=== PATIENT | female | born 1965 | race Caucasian/White ===

== ENCOUNTER 2018-01-20 15:24 | Emergency (ER) | payer SELFPAY ==
[2018-01-20] MEDS ORDERED: ALBUTEROL 2.5 MG/3 ML NEB SOL ONE (15:44)
[2018-01-20] MEDS ORDERED: IPRATROPIUM BROM 0.5MG/2.5ML ONE (15:44)
[2018-01-20] MEDS ORDERED: predniSONE 20 MG TAB ONE (15:45)
--- NOTE | 2018-01-20 16:42 | RAD REPORT ---
EXAM DESCRIPTION: RAD - Chest Pa And Lat (2 Views) - 01/20/2018 4:35 pm CLINICAL HISTORY: Cough, congestion. COMPARISON: None. FINDINGS: The lungs are clear. The heart is normal in size. No displaced fractures. IMPRESSION: No acute or concerning finding suspected.
--- NOTE | 2018-01-20 17:01 | EDPHYS ---
Physician Documentation [facility] Name: Shabnam Farnsworth Age: 52 yrs Sex: Female : 1965 Arrival Date: 01/20/2018 Time: 15:28 Bed 16 Private MD: None, None ED Physician Dave Gardiner HPI: 01/20 15:55 This 52 yrs old Female presents to ER via Ambulatory with complaints of Sinus kb Congestion, Chest Congestion. 15:55 The patient or guardian reports cough, that is intermittent, described as moderate, kb with no sputum. Onset: The symptoms/episode began/occurred 6 day(s) ago. Severity of symptoms: At their worst the symptoms were moderate, in the emergency department the symptoms are unchanged. Modifying factors: The symptoms are alleviated by nothing, the symptoms are aggravated by nothing. Associated signs and symptoms: Pertinent positives: rhinorrhea, Pertinent negatives: chest pain, diarrhea, ear ache, fever, nausea, sore throat, vomiting. The patient has experienced similar episodes in the past, several times. The patient has not recently seen a physician. Pt states she started with a "head cold" on Sunday and it moved into her chest. Now has cough, wheezing, chest congestion. Has history of asthma and is out of albuterol. Was working with the [employer] yesterday and that made symptoms worse. 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 - Social history:: Smoking status: Patient/guardian denies using tobacco. ROS: 15:53 Constitutional: Negative for fever, chills, and weight loss, Neck: Negative for injury, kb pain, and swelling, Cardiovascular: Negative for chest pain, palpitations, and edema, Abdomen/GI: Negative for abdominal pain, nausea, vomiting, diarrhea, and constipation, Back: Negative for injury and pain, : Negative for injury, bleeding, discharge, and swelling, MS/Extremity: Negative for injury and deformity, Skin: Negative for injury, rash, and discoloration, Neuro: Negative for headache, weakness, numbness, tingling, and seizure. 15:53 ENT: Positive for rhinorrhea, sinus congestion, sinus pain. 15:53 Respiratory: Positive for cough, Negative for dyspnea on exertion, hemoptysis, orthopnea, pleurisy, shortness of breath, sputum production, wheezing. Exam: 15:53 Constitutional: This is a well developed, well nourished patient who is awake, alert, kb and in no acute distress. Head/Face: Normocephalic, atraumatic. ENT: Nares patent. No nasal discharge, no septal abnormalities noted. Tympanic membranes are normal and external auditory canals are clear. Oropharynx with no redness, swelling, or masses, exudates, or evidence of obstruction, uvula midline. Mucous membranes moist. Neck: Trachea midline, no thyromegaly or masses palpated, and no cervical lymphadenopathy. Supple, full range of motion without nuchal rigidity, or vertebral point tenderness. No Meningismus. Chest/axilla: Normal chest wall appearance and motion. Nontender with no deformity. No lesions are appreciated. Cardiovascular: Regular rate and rhythm with a normal S1 and S2. No gallops, murmurs, or rubs. Normal PMI, no JVD. No pulse deficits. Abdomen/GI: Soft, non-tender, with normal bowel sounds. No distension or tympany. No guarding or rebound. No evidence of tenderness throughout. Skin: Warm, dry with normal turgor. Normal color with no rashes, no lesions, and no evidence of cellulitis. MS/ Extremity: Pulses equal, no cyanosis. Neurovascular intact. Full, normal range of motion. Neuro: Awake and alert, GCS 15, oriented to person, place, time, and situation. Cranial nerves II-XII grossly intact. Motor strength 5/5 in all extremities. Sensory grossly intact. Cerebellar exam normal. Normal gait. 15:53 Respiratory: the patient does not display signs of respiratory distress, Respirations: normal, Breath sounds: wheezing: expiratory that is moderate, is heard diffusely. Vital Signs: 15:34 BP 109 / 58; Pulse 111; Resp 22; Temp 97.9(TE); Pulse Ox 94% on R/A; Weight 70.31 kg; la1 Height 5 ft. 4 in. (162.56 cm); 16:21 BP 106 / 59; Pulse 100; Resp 18; Pulse Ox 100% on R/A; Pain 0/10; em 17:05 BP 117 / 63; Pulse 89; Resp 20; Pulse Ox 99% on R/A; Pain 0/10; em 15:34 Body Mass Index 26.61 (70.31 kg, 162.56 cm) la1 MDM: 15:36 Patient medically screened. kb 15:53 Data reviewed: vital signs, nurses notes. Data interpreted: Pulse oximetry: on room air kb is 94 %. Interpretation: acceptable. 15:58 Counseling: I had a detailed discussion with the patient and/or guardian regarding: the kb historical points, exam findings, and any diagnostic results supporting the discharge/admit diagnosis, radiology results, the need for outpatient follow up, a family practitioner, to return to the emergency department if symptoms worsen or persist or if there are any questions or concerns that arise at home. 17:01 Response to treatment: the patient's symptoms have markedly improved after treatment. kb 01/20 15:37 Order name: Chest Pa And Lat (2 Views) XRAY; Complete Time: 16:46 kb Administered Medications: 15:50 Drug: DuoNeb (3:1) (2.5 mg - 0.5 mg) 3 ml Route: Nebulizer; em 17:19 Follow up: Response: No adverse reaction; Wheezing diminished em 15:50 Drug: predniSONE 60 mg Route: PO; em 17:19 Follow up: Response: No adverse reaction em Disposition: 18 17:00 Discharged to Home. Impression: Unspecified asthma with (acute) exacerbation. - Condition is Stable. - Discharge Instructions: Asthma, Adult, [id number]. - Prescriptions for Prednisone 20 mg Oral Tablet - take 1 tablet by ORAL route once daily for 5 days; 5 tablet. Albuterol Sulfate 2.5 mg /3 mL (0.083 %) Inhalation Solution for Nebulization - inhale 1 unit by NEBULIZATION route every 8 hours As needed; 1 box. Albuterol Sulfate 90 mcg/actuation - inhale 1-2 puff by INHALATION route every 4-6 hours; 1 Inhaler. - Medication Reconciliation Form, Thank You Letter, Antibiotic Education, Prescription Opioid Use form. - Follow up: Emergency Department; When: As needed; Reason: Worsening of condition. Follow up: Private Physician; When: 2 - 3 days; Reason: Recheck today's complaints, Continuance of care, Re-evaluation by your physician. Addendum: 01/29/2018 05:54 Co-signature as Attending Physician, Dave Gardiner MD I agree with the assessment and w a plan of care. Signatures: Dispatcher [employer] Divine Cruz, RANULFO-C CONSULTING BUSINESS DEVELOPER-Ckb PhamAkash, SCIENCE TECHNICIAN SCIENCE TECHNICIAN em Zachary Delgado, RN RN la1 Dave Gardiner MD MD me Corrections: (The following items were deleted from the chart) 01/20 16:00 15:55 Pt states she started with a "head cold" on Sunday and it moved into her chest. kb Now has cough, wheezing, chest congestion. Has history of asthma and is out of albuterol. . kb 17:19 17:00 01/20/2018 17:00 Discharged to Home. Impression: Unspecified asthma with (acute) em exacerbation. Condition is Stable. Discharge Instructions: Asthma, Adult, [id number]. Prescriptions for Prednisone 20 mg Oral Tablet - take 1 tablet by ORAL route once daily for 5 days; 5 tablet, Albuterol Sulfate 2.5 mg /3 mL (0.083 %) Inhalation Solution for Nebulization - inhale 1 unit by NEBULIZATION route every 8 hours As needed; 1 box, Albuterol Sulfate 90 mcg/actuation - inhale 1-2 puff by INHALATION route every 4-6 hours; 1 Inhaler. and Forms are Medication Reconciliation Form, Thank You Letter, Antibiotic Education, Prescription Opioid Use. Follow up: Emergency Department; When: As needed; Reason: Worsening of condition. Follow up: Private Physician; When: 2 - 3 days; Reason: Recheck today's complaints, Continuance of care, Re-evaluation by your physician. kb
--- NOTE | 2018-01-20 17:01 | ER ---
Nurse's Notes [facility] Name: Shabnam Farnsworth Age: 52 yrs Sex: Female : 1965 Arrival Date: 01/20/2018 Time: 15:28 Bed 16 Private MD: None, None Diagnosis: Unspecified asthma with (acute) exacerbation Presentation: 01/20 15:33 Presenting complaint: Patient states: I have been having congestion, runny nose, cough la1 since Sunday and its moving in to my chest, pt audibly wheezing, respirations even and unlabored. Transition of care: patient was not received from another setting of care. Onset of symptoms was January 20, 2018. Initial Sepsis Screen: Does the patient meet any 2 criteria? No. Patient's initial sepsis screen is negative. Does the patient have a suspected source of infection? No. Patient's initial sepsis screen is negative. Care prior to arrival: None. 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 - Social history:: Smoking status: Patient/guardian denies using tobacco. Screenin:54 Abuse screen: Denies threats or abuse. Nutritional screening: No deficits noted. em Tuberculosis screening: No symptoms or risk factors identified. Fall Risk None identified. Assessment: 15:51 General: Appears in no apparent distress. comfortable, Behavior is calm, cooperative. em Pain: Denies pain. Neuro: Level of Consciousness is awake, alert, obeys commands, Oriented to person, place, time, situation. Cardiovascular: Capillary refill < 3 seconds Patient's skin is warm and dry. Respiratory: Reports cough that is productive, Airway is patent Respiratory effort is even, unlabored, Respiratory pattern is regular, symmetrical, Breath sounds with wheezes bilaterally. Onset: The symptoms/episode began/occurred Sunday , the patient has mild shortness of breath. GI: Abdomen is flat. : No signs and/or symptoms were reported regarding the genitourinary system. EENT: No signs and/or symptoms were reported regarding the EENT system. Derm: Skin is intact, Skin is pink, warm \T\ dry. Musculoskeletal: Range of motion: intact in all extremities. 16:06 Reassessment: Patient appears in no apparent distress at this time. I agree with the iw assessment by Akash Pham LVN. 16:32 Reassessment: Patient appears in no apparent distress at this time. Patient and/or em family updated on plan of care and expected duration. Pain level reassessed. Patient is alert, oriented x 3, equal unlabored respirations, skin warm/dry/pink. pt wheeled to X-ray dept by miguel Mabry. 17:05 Reassessment: Patient appears in no apparent distress at this time. Patient and/or em family updated on plan of care and expected duration. Pain level reassessed. Patient is alert, oriented x 3, equal unlabored respirations, skin warm/dry/pink. Patient states feeling better. Patient states symptoms have improved. Vital Signs: 15:34 BP 109 / 58; Pulse 111; Resp 22; Temp 97.9(TE); Pulse Ox 94% on R/A; Weight 70.31 kg; la1 Height 5 ft. 4 in. (162.56 cm); 16:21 BP 106 / 59; Pulse 100; Resp 18; Pulse Ox 100% on R/A; Pain 0/10; em 17:05 BP 117 / 63; Pulse 89; Resp 20; Pulse Ox 99% on R/A; Pain 0/10; em 15:34 Body Mass Index 26.61 (70.31 kg, 162.56 cm) la1 ED Course: 15:28 Patient arrived in ED. mr 15:28 None, None is Private Physician. mr 15:28 Divine Da Silva [facility]C [facility]. kb 15:28 Dave Gardiner MD is Attending Physician. kb 15:34 Triage completed. la1 15:34 Arm band placed on right wrist. la1 15:50 Akash Pham LVN is Primary Nurse. em 15:54 Patient has correct armband on for positive identification. Bed in low position. Call em light in reach. 15:54 No provider procedures requiring assistance completed. em 16:34 Chest Pa And Lat (2 Views) XRAY In Process Unspecified. EDMS 17:18 Patient did not have IV access during this emergency room visit. em Administered Medications: 15:50 Drug: DuoNeb (3:1) (2.5 mg - 0.5 mg) 3 ml Route: Nebulizer; em 17:19 Follow up: Response: No adverse reaction; Wheezing diminished em 15:50 Drug: predniSONE 60 mg Route: PO; em 17:19 Follow up: Response: No adverse reaction em Outcome: 17:00 Discharge ordered by . hallie 17:19 Discharged to home ambulatory. em 17:19 Condition: good 17:19 Discharge instructions given to patient, Instructed on discharge instructions, follow up and referral plans. medication usage, Demonstrated understanding of instructions, follow-up care, medications, Prescriptions given X 3. 17:19 Patient left the ED. em Signatures: Dispatcher [employer] EDDivine Altamirano, PEDIATRICIAN-C PEDIATRICIAN-Ilana Marrero Edgar, BUSPERSON BUSPERSON em Amita Arias, RN Zachary Mirza RN RN la1
== END 2018-01-20 17:19 | disposition home or self-care (01) ==
LOC: ER 15:24
DX: J45.901 Unspecified asthma with (acute) exacerbation (principal); Z88.1 Allergy status to other antibiotic agents
CPT/HCPCS: 71046; 94640; 99284; J7512

== ENCOUNTER 2018-02-16 12:11 | Inpatient (IN) | payer SELFPAY ==
[2018-02-16] MEDS ORDERED: ALBUTEROL 2.5 MG/3 ML NEB SOL ONE ×2 (13:06→16:26)
[2018-02-16] MEDS ORDERED: METHYLPREDNISOLONE 125 MG INJ ONE (13:06)
[2018-02-16] MEDS ORDERED: IPRATROPIUM BROM 0.5MG/2.5ML ONE (13:06)
[2018-02-16 13:10] LABS: Hematocrit 46.6 % (36.0-45.0); MCH 31.7 pg (27.0-35.0); MPV 8.7 fL (7.6-11.3)
[2018-02-16 13:12] LABS: Protime INR 1.02
[2018-02-16 13:17] LABS: Bicarbonate 28 mEq/L (21-31); Glucose Level 251 mg/dL (65-120); Potassium 4.2 mEq/L (3.6-5.0); Sodium Level 136 mEq/L (135-145)
[2018-02-16 13:23] LABS: ALT/SGPT 20 IU/L (10-60); AST/SGOT 16 IU/L (10-42); Albumin 3.9 g/dL (3.2-5.5); Alkaline Phosphatase 83 IU/L (42-121); BUN Blood Urea Nitrogen 15 mg/dL (6-20); Bilirubin Direct 0.1 mg/dL (0-0.2); Bilirubin Total 0.5 mg/dL (0.3-1.2); Creatine Phosphokinase 64 IU/L (22-269); Magnesium 1.6 mg/dL (1.8-2.5); Protein, Total 7.4 g/dL (6.0-8.3)
[2018-02-16 13:26] LABS: CKMB Creatine Kinase MB 1.9 ng/ml (0.3-4.0)
[2018-02-16 13:32] LABS: Blood Morphology Comment NOT SEEN (NOT SEEN); Platelet Estimate ADEQ
--- NOTE | 2018-02-16 13:33 | RAD REPORT ---
EXAM DESCRIPTION: RAD - Chest Single View - 02/16/2018 1:23 pm CLINICAL HISTORY: Cough, shortness of breath. COMPARISON: 01/20/2018 FINDINGS: Portable technique limits examination quality. The lungs are grossly clear. The heart is normal in size. No displaced fractures. IMPRESSION: No acute intrathoracic process suspected.
[2018-02-16] MEDS ORDERED: ASPIRIN 81 MG CHEWABLE TABLET ONE (13:47)
[2018-02-16] MEDS ORDERED: Magnesium Sulfate 2gm IVPB 2 G/50 ML BAG IV ONE (13:48)
--- NOTE | 2018-02-16 17:21 | ER ---
Nurse's Notes [facility] Name: Shabnam Farnsworth Age: 52 yrs Sex: Female : 1965 Arrival Date: 02/16/2018 Time: 12:12 Bed 23 Private MD: Diagnosis: Unspecified asthma with (acute) exacerbation;Hypoxemia Presentation: 02/16 12:36 Presenting complaint: Patient states: SOB and productive cough with yellow sputum x 3 hb days. SOB is worse when supine. Denies fever. Hx asthma, DM. Transition of care: patient was not received from another setting of care. Onset of symptoms was February 14, 2018. 12:36 Method Of Arrival: Ambulatory hb 12:40 Risk Assessment: Do you want to hurt yourself or someone else? Patient reports no hb desire to harm self or others. 12:40 Acuity: CAMERON 2 hb 13:21 Initial Sepsis Screen: Does the patient meet any 2 criteria? No. Patient's initial kr2 sepsis screen is negative. Does the patient have a suspected source of infection? No. Patient's initial sepsis screen is negative. Care prior to arrival: None. 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 - Social history:: Smoking status: Patient/guardian denies using tobacco. - Ebola Screening: : No symptoms or risks identified at this time. Screenin:21 Abuse screen: Denies threats or abuse. Denies injuries from another. Nutritional kr2 screening: No deficits noted. Tuberculosis screening: No symptoms or risk factors identified. Fall Risk None identified. Assessment: 13:18 General: Appears in no apparent distress. comfortable, well groomed, well developed, kr2 well nourished, Behavior is calm, cooperative, appropriate for age. Pain: Denies pain. Neuro: Level of Consciousness is awake, alert, obeys commands, Oriented to person, place, time, situation, Appropriate for age. Cardiovascular: Capillary refill < 3 seconds in bilateral fingers Patient's skin is warm and dry. Rhythm is regular. Respiratory: Reports feeling congested and "like I can't take a full deep breath" Airway is patent Respiratory effort is even, unlabored, Respiratory pattern is regular, symmetrical, Breath sounds are clear bilaterally. Respiratory: Reports cough that is productive. GI: Abdomen is flat, non-distended. : No signs and/or symptoms were reported regarding the genitourinary system. EENT: Nares are clear bilaterally Oral mucosa is moist. Derm: Skin is intact, is healthy with good turgor, Skin is pink, warm \\T\\ dry. Musculoskeletal: Circulation, motion, and sensation intact. 14:32 Reassessment: Patient appears in no apparent distress at this time. Patient and/or kr2 family updated on plan of care and expected duration. Pain level reassessed. Patient is alert, oriented x 3, equal unlabored respirations, skin warm/dry/pink. Patient off of oxygen briefly, O2 sat 89% on room air with patient at rest. Placed back on O2 \\T\\ 2 LPM via NC. Saturation 95%. 16:19 Reassessment: Patient appears in no apparent distress at this time. Patient and/or kr2 family updated on plan of care and expected duration. Pain level reassessed. Patient is alert, oriented x 3, equal unlabored respirations, skin warm/dry/pink. Provider had patient remove oxygen and ambulate around nurse's station. Saturation dropped to 89% on room air. Provider notified, placed patient back on oxygen. 17:30 Reassessment: Patient appears in no apparent distress at this time. Patient and/or kr2 family updated on plan of care and expected duration. Pain level reassessed. Patient is alert, oriented x 3, equal unlabored respirations, skin warm/dry/pink. Patient denies pain at this time. 18:23 Reassessment: Patient appears in no apparent distress at this time. Patient and/or kr2 family updated on plan of care and expected duration. Pain level reassessed. Patient is alert, oriented x 3, equal unlabored respirations, skin warm/dry/pink. Patient denies pain at this time. 19:55 Reassessment: Patient appears in no apparent distress at this time. Patient and/or kr2 family updated on plan of care and expected duration. Pain level reassessed. Patient is alert, oriented x 3, equal unlabored respirations, skin warm/dry/pink. Patient denies pain at this time. Vital Signs: 12:37 BP 134 / 66; Pulse 103; Resp 20; Temp 98; Pulse Ox 88% on R/A; Pain 0/10; hb 14:34 BP 115 / 71; Pulse 77; Resp 18; Pulse Ox 95% on 2 lpm NC; kr2 15:30 BP 104 / 62; Pulse 80; Resp 20; Pulse Ox 95% on 2 lpm NC; kr2 16:19 Pulse Ox 89% on R/A; kr2 16:28 BP 101 / 58; Pulse 90; Resp 18; Pulse Ox 94% on 2 lpm NC; kr2 18:22 BP 110 / 65; Pulse 72; Resp 17; Pulse Ox 97% on 2 lpm NC; kr2 19:30 BP 116 / 63; Pulse 70; Resp 96; Pulse Ox 96% on 2 lpm NC; kr2 ED Course: 12:12 Patient arrived in ED. rg4 12:40 Triage completed. hb 12:40 Arm band placed on left wrist. hb 12:43 Chris Murcia PA is PHCP. cp 12:43 Chris Cortez MD is Attending Physician. cp 12:50 Initial lab(s) drawn, by me, sent to lab. Inserted saline lock: 20 gauge in right iw antecubital area, using aseptic technique. Blood collected. 12:55 Yen Saunders, RN is Primary Nurse. kr2 13:22 Patient has correct armband on for positive identification. Bed in low position. Call kr2 light in reach. Adult w/ patient. learning center coordinator on. Pulse ox on. NIBP on. 13:23 XRAY Chest (1 view) In Process Unspecified. EDMS 16:22 No provider procedures requiring assistance completed. kr2 17:19 Silvano Cordero DO is Hospitalizing Provider. cp 19:55 Patient admitted, IV remains in place. kr2 Administered Medications: 13:09 Drug: SOLU-Medrol 125 mg Route: IVP; Site: right antecubital; kr2 14:45 Follow up: Response: No adverse reaction kr2 13:10 Drug: Albuterol - atroVENT (3:1) (2.5 mg - 0.5 mg) 3 ml Route: Nebulizer; kr2 14:45 Follow up: Response: No adverse reaction kr2 13:51 Drug: Magnesium Sulfate 2 grams Route: IVPB; Infused Over: 2 hrs; Site: right kr2 antecubital; 15:00 Follow up: Response: No adverse reaction; IV Status: Completed infusion kr2 13:51 Drug: Aspirin Chewable Tablet 324 mg Route: PO; kr2 14:45 Follow up: Response: No adverse reaction kr2 16:45 Drug: Albuterol 2.5 mg Route: Inhalation; kr2 17:00 Follow up: Response: No adverse reaction kr2 Outcome: 17:21 Decision to Hospitalize by Provider. cp 19:54 Admitted to Med/surg accompanied by nurse, family with patient, via wheelchair, room kr2 216, with oxygen, with chart, Report called to Cassy 19:54 Condition: good 19:54 Instructed on the need for admit, Demonstrated understanding of instructions. 19:59 Patient left the ED. kr2 Signatures: Dispatcher [employer] EDAmita Mar RN RN iw Page, Corey, CHRIS PA cp Mercedes Castro RN RN hb Garcia, Rubi rg4 Yen Saunders RN RN kr2 Corrections: (The following items were deleted from the chart) 19:58 13:18 Respiratory: Reports cough that is non-productive, kr2 kr2
--- NOTE | 2018-02-16 17:21 | EDPHYS ---
Physician Documentation [facility] Name: Shabnam Farnsworth Age: 52 yrs Sex: Female : 1965 Arrival Date: 02/16/2018 Time: 12:12 Bed 23 Private MD: ED Physician Chris Cortez HPI: 02/16 12:50 This 52 yrs old Female presents to ER via Ambulatory with complaints of cp Asthma Exacerbation. 12:50 The patient has shortness of breath at rest. cp 12:50 Onset: The symptoms/episode began/occurred 3 day(s) ago. Duration: The symptoms are cp continuous, and are steadily getting worse. The patient's shortness of breath is aggravated by light activity. Associated signs and symptoms: Pertinent positives: productive cough, Pertinent negatives: chest pain, fever, hemoptysis, vomiting. Severity of symptoms: in the emergency department the symptoms are unchanged. The patient has experienced similar episodes in the past, today's symptoms are similar, to when the patient was apparently diagnosed with asthma exacerbation. Patient reports running out of Advair inhaler about 1 month ago. 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 - Social history:: Smoking status: Patient/guardian denies using tobacco. - Ebola Screening: : No symptoms or risks identified at this time. ROS: 13:00 Constitutional: Negative for body aches, chills, fever, poor PO intake. cp 13:00 Eyes: Negative for injury, pain, redness, and discharge. cp 13:00 ENT: Negative for drainage from ear(s), ear pain, sore throat, difficulty swallowing, difficulty handling secretions. 13:00 Cardiovascular: Negative for chest pain, edema, orthopnea, palpitations. 13:00 Respiratory: Positive for cough, shortness of breath, at rest. wheezing, Negative for hemoptysis. 13:00 Abdomen/GI: Negative for abdominal pain, nausea, vomiting, and diarrhea. 13:00 Back: Negative for radiated pain. 13:00 : Negative for urinary symptoms. 13:00 Skin: Negative for cellulitis, diaphoresis, rash. 13:00 Neuro: Negative for altered mental status, dizziness, headache, syncope, near syncope, weakness. 13:00 All other systems are negative. Exam: 13:07 ECG was reviewed by the Attending Physician. cp 13:10 Constitutional: The patient appears in no acute distress, alert, awake, cp non-diaphoretic, non-toxic, well developed, well nourished. 13:10 Head/Face: Normocephalic, atraumatic. Eyes: Pupils equal round and reactive to light, cp extra-ocular motions intact. Lids and lashes normal. Conjunctiva and sclera are non-icteric and not injected. Cornea within normal limits. Periorbital areas with no swelling, redness, or edema. ENT: Nares patent. No nasal discharge, no septal abnormalities noted. Tympanic membranes are normal and external auditory canals are clear. Oropharynx with no redness, swelling, or masses, exudates, or evidence of obstruction, uvula midline. Mucous membranes moist. Neck: Trachea midline, no thyromegaly or masses palpated, and no cervical lymphadenopathy. Supple, full range of motion without nuchal rigidity, or vertebral point tenderness. No Meningismus. Chest/axilla: Normal chest wall appearance and motion. Nontender with no deformity. No lesions are appreciated. 13:10 Cardiovascular: Rate: tachycardic, Rhythm: regular, Heart sounds: murmur, not appreciated, Edema: is not appreciated, JVD: is not appreciated. 13:10 Respiratory: the patient does not display signs of respiratory distress, Respirations: labored breathing, that is mild, intercostal retractions, are absent, shallow respirations, are not present, splinting, is not noted, Breath sounds: decreased breath sounds, that are moderate, throughout, rhonchi, are not appreciated, stridor, is not appreciated, wheezing: that is mild, is heard diffusely. 13:10 Abdomen/GI: Inspection: abdomen appears normal, Bowel sounds: active, all quadrants, Palpation: abdomen is soft and non-tender, in all quadrants, rebound tenderness, is not appreciated, voluntary guarding, is not appreciated, involuntary guarding, is not appreciated. 13:10 Back: pain, is absent, ROM is normal. 13:10 Skin: cellulitis, is not appreciated, no rash present. 13:10 Neuro: Orientation: to person, place \T\ time. Mentation: lucid, able to follow commands, Cerebellar function: is grossly normal, Motor: moves all fours, strength is normal, Sensation: is normal. Vital Signs: 12:37 BP 134 / 66; Pulse 103; Resp 20; Temp 98; Pulse Ox 88% on R/A; Pain 0/10; hb 14:34 BP 115 / 71; Pulse 77; Resp 18; Pulse Ox 95% on 2 lpm NC; kr2 15:30 BP 104 / 62; Pulse 80; Resp 20; Pulse Ox 95% on 2 lpm NC; kr2 16:19 Pulse Ox 89% on R/A; kr2 16:28 BP 101 / 58; Pulse 90; Resp 18; Pulse Ox 94% on 2 lpm NC; kr2 18:22 BP 110 / 65; Pulse 72; Resp 17; Pulse Ox 97% on 2 lpm NC; kr2 19:30 BP 116 / 63; Pulse 70; Resp 96; Pulse Ox 96% on 2 lpm NC; kr2 MDM: 12:54 Patient medically screened. cp 13:00 Differential diagnosis: asthma, Bronchitis CHF exacerbation, Chronic Obstructive cp Pulmonary Disease Pneumothorax Sepsis Unstable Angina. 17:15 Data reviewed: vital signs, nurses notes, lab test result(s), EKG, radiologic studies, cp plain films. 17:15 Antibiotic administration: Not indicated, the patient does not have an appreciated cp infiltrate, the patient's primary pathology is reactive airway disease. Test interpretation: by ED physician or midlevel provider: ECG, plain radiologic studies. 17:17 Physician consultation: Silvano Cordero DO was contacted at 17:18, regarding admission, cp to the telemetry unit. patient's condition, and will see patient in ED, immediately. 02/16 12:49 Order name: Basic Metabolic Panel cp 02/16 12:49 Order name: BNP; Complete Time: 13:42 cp 02/16 12:49 Order name: CBC with Diff; Complete Time: 13:42 cp 02/16 13:42 Interpretation: Normal except: RBC 4.90; HGB 15.6; HCT 46.6. cp 02/16 12:49 Order name: Ckmb cp 02/16 12:49 Order name: CPK; Complete Time: 13:42 cp 02/16 12:49 Order name: LFT's; Complete Time: 13:42 cp 02/16 12:49 Order name: Magnesium; Complete Time: 13:42 cp 02/16 15:56 Interpretation: Abnormal: MG 1.6. cp 02/16 12:49 Order name: PT-INR; Complete Time: 13:42 cp 02/16 12:49 Order name: Ptt, Activated; Complete Time: 13:42 cp 02/16 12:49 Order name: Troponin (emerg Dept Use Only); Complete Time: 13:42 cp 02/16 12:49 Order name: Basic Metabolic Panel; Complete Time: 13:42 EDMS 02/16 15:56 Interpretation: Normal except: GLUC 251. cp 02/16 12:49 Order name: CKMB Creatine Kinase MB; Complete Time: 13:42 EDMS 02/16 13:21 Order name: Manual Differential; Complete Time: 13:42 EDMS 02/16 15:57 Interpretation: Normal except: BANDS [F] 2; EOS 12. cp 02/16 14:37 Order name: Urine Dipstick--Ancillary (enter results) bd 02/16 14:37 Order name: Urine --Ancillary (enter results) bd 02/16 17:33 Order name: Hemoglobin A1C EDMS 02/16 17:33 Order name: Basic Metabolic Panel EDMS 02/16 17:33 Order name: Basic Metabolic Panel EDMS 02/16 17:33 Order name: Basic Metabolic Panel EDMS 02/16 17:33 Order name: Basic Metabolic Panel EDMS 02/16 17:33 Order name: CBC with Automated Diff EDMS 02/16 17:33 Order name: CBC with Automated Diff EDMS 02/16 17:33 Order name: CBC with Automated Diff EDMS 02/16 17:33 Order name: CBC with Automated Diff EDMS 02/16 17:33 Order name: Magnesium EDMS 02/16 17:33 Order name: Magnesium EDMS 02/16 17:33 Order name: Magnesium EDMS 02/16 17:33 Order name: Magnesium EDMS 02/16 17:33 Order name: Influenza Screen (A EDMS 02/16 17:33 Order name: Group A Streptococcus Rapid Sc EDMS 02/16 12:49 Order name: Urine Test (obtain specimen); Complete Time: 14:47 02/16 12:49 Order name: XRAY Chest (1 view); Complete Time: 13:42 02/16 17:17 Interpretation: Report review. 02/16 12:49 Order name: EKG; Complete Time: 12:49 02/16 12:49 Order name: Cardiac monitoring; Complete Time: 13:12 02/16 12:49 Order name: EKG - Nurse/Tech; Complete Time: 13:12 02/16 12:49 Order name: IV Saline Lock; Complete Time: 13:12 02/16 12:49 Order name: Labs collected and sent; Complete Time: 13:12 02/16 12:49 Order name: O2 Per Protocol; Complete Time: 13:12 02/16 12:49 Order name: O2 Sat Monitoring; Complete Time: 13:12 02/16 12:49 Order name: Urine Dipstick-Ancillary (obtain specimen); Complete Time: 14:46 02/16 17:33 Order name: Consistent Carb (ADA) [facility] EDMS 02/16 17:34 Order name: Respiratory Therapy Consult EDMS EC:07 Rate is 70 beats/min. Rhythm is regular. OH interval is normal. QRS interval is normal. cp QT interval is normal. No ST changes noted. Interpreted by me. Reviewed by me. Administered Medications: 13:09 Drug: SOLU-Medrol 125 mg Route: IVP; Site: right antecubital; kr2 14:45 Follow up: Response: No adverse reaction kr2 13:10 Drug: Albuterol - atroVENT (3:1) (2.5 mg - 0.5 mg) 3 ml Route: Nebulizer; kr2 14:45 Follow up: Response: No adverse reaction kr2 13:51 Drug: Magnesium Sulfate 2 grams Route: IVPB; Infused Over: 2 hrs; Site: right kr2 antecubital; 15:00 Follow up: Response: No adverse reaction; IV Status: Completed infusion kr2 13:51 Drug: Aspirin Chewable Tablet 324 mg Route: PO; kr2 14:45 Follow up: Response: No adverse reaction kr2 16:45 Drug: Albuterol 2.5 mg Route: Inhalation; kr2 17:00 Follow up: Response: No adverse reaction kr2 Disposition: 06/09/18 17:21 Hospitalization ordered by Silvano Cordero for Observation. Preliminary diagnosis are Unspecified asthma with (acute) exacerbation, Hypoxemia. - Bed requested for Telemetry/MedSurg (observation). - Status is Observation. kr2 - Condition is Stable. - Problem is new. - Symptoms have improved. UTI on Admission? No Addendum: 02/18/2018 09:04 Co-signature as Attending Physician, Chris Cortez MD I agree with the assessment and c devi plan of care. Signatures: Dispatcher [employer] Zenaida Zendejas RN RN Chris Cunningham MD MD cha Page, Corey PA PA cp Mercedes Castro RN YINA Yen Saunders RN RN kr2 Corrections: (The following items were deleted from the chart) 02/16 18:49 17:21 Hospitalization Ordered by Silvano Cordero DO for Observation. Preliminary dw diagnosis is Unspecified asthma with (acute) exacerbation; Hypoxemia. Bed requested for Telemetry/MedSurg (observation). Status is Observation. Condition is Stable. Problem is new. Symptoms have improved. UTI on Admission? No. cp 19:59 18:49 02/16/2018 17:21 Hospitalization Ordered by Silvano Cordero DO for Observation. kr2 Preliminary diagnosis is Unspecified asthma with (acute) exacerbation; Hypoxemia. Bed requested for Telemetry/MedSurg (observation). Status is Observation. Condition is Stable. Problem is new. Symptoms have improved. UTI on Admission? No. dw
[2018-02-16] MEDS ORDERED: GLUCAGON 1 MG/VIAL IM PRN (17:26)
[2018-02-16] MEDS ORDERED: ONDANSETRON 4 MG/2 ML VIAL IV PRN (17:26)
[2018-02-16] MEDS ORDERED: ACETAMINOPHEN 500 MG TAB PO PRN (17:26)
[2018-02-16] MEDS ORDERED: D50W 25 GM/50 ML SYRINGE IV PRN (17:26)
--- NOTE | 2018-02-16 17:34 | P.HP ---
Certification for Inpatient Patient admitted to: Observation With expected LOS: <2 Midnights Patient will require the following post-hospital care: None Practitioner: I am a practitioner with admitting privileges, knowledge of patient current condition, hospital course, and medical plan of care. Services: Services provided to patient in accordance with Admission requirements found in Title 42 Section 412.3 of the Code of Federal Regulations Patient History Date of Service: 02/16/18 Primary Care Provider: None Reason for admission: Shortness of breath History of Present Illness: 52-year-old female presented emergency room with increasing shortness of breath and cough. Patient has history of asthma, type 1 diabetes and is a former tobacco user. Patient reports that she ran out of medication-Advair about a month ago. She has been using her albuterol inhaler. Over the last several days she has been having increasing shortness of breath, cough. Cough is productive. She denies any significant chest pain, nausea or vomiting. She reports some sick contacts with upper respiratory infection. Patient with increased wheezing. She came to the ER In the ER patient was evaluated. Oxygen saturations around 88%. Patient with increased wheezing. Chest x-ray shows no pneumonia. Sodium 136, potassium within normal range. Magnesium 1.6, glucose 254. White count 8.8. Hemoglobin 15.4. Patient was given treatments in the ER. Symptoms not significantly improved. Therefore patient was admitted for observation. When I evaluated the patient in the ER, she appeared comfortable. No significant respiratory distress noted. The patient is new to the area. Allergies sulfamethoxazole [From Bactrim] Allergy (Unverified 01/20/18 17:23) Unknown trimethoprim [From Bactrim] Allergy (Unverified 01/20/18 17:23) Unknown Home medications list reviewed: Yes - Past Medical/Surgical History Diabetic: Yes -: Diabetes mellitus type 1 -: Asthma -: Former tobacco use -: History small-bowel obstruction -: Laparotomy -: C-sections x2 Psychosocial/ Personal History: The patient is single. She has 2 children. She does not work. - Family History Family History: Reviewed- Non-Contributory - Social History Smoking Status: Former smoker Alcohol use: Yes CD- Drugs: No Caffeine use: Yes Place of Residence: Home Review of Systems General: As per HPI Eyes: Unremarkable ENT: Nose Congestion, As per HPI Respiratory: Cough, Shortness of Breath, Wheezing, As per HPI Cardiovascular: Unremarkable Gastrointestinal: Unremarkable Genitourinary: Unremarkable Musculoskeletal: Unremarkable Integumentary: Unremarkable Neurological: Unremarkable Lymphatics: Unremarkable Physical Examination - Physical Exam General: Alert, In no apparent distress, Oriented x3, Cooperative HEENT: Atraumatic, Normocephalic, PERRLA, Other (Some nasal congestion noted.) Neck: Supple, No Thyromegaly Respiratory: Expiratory wheezes (Bilateral) Cardiovascular: Normal pulses, Regular rate/rhythm Gastrointestinal: Normal bowel sounds, Soft and benign, Non-distended, No tenderness, No masses, No rebound, No guarding Musculoskeletal: No erythema, No tenderness, No warmth Integumentary: No tenderness/swelling, No erythema, No warmth, No cyanosis Neurological: Normal speech, Normal strength at 5/5 x4 extr, Normal tone, Normal affect Lymphatics: No axilla or inguinal lymphadenopathy - Studies Laboratory Data (last 24 hrs) 02/16/18 12:50: PT 12.0, INR 1.02, APTT 33.8 02/16/18 12:50: WBC 8.8, Hgb 15.6 H, Hct 46.6 H, Plt Count 280 02/16/18 12:50: B-Natriuretic Peptide 13 02/16/18 12:50: Sodium 136, Potassium 4.2, BUN 15, Creatinine 0.59, Glucose 251 H, Magnesium 1.6 L, Total Bilirubin 0.5, AST 16, ALT 20, Alkaline Phosphatase 83 Assessment and Plan - Problems (Diagnosis) (1) Asthma Current Visit: Yes Status: Acute Plan: Patient ran out of [facility] about a month ago. She is new to the area. Patient with acute exacerbation. Will provide IV steroid. Will continue with asthma medication. Will provide medication for cough. Anticipate discharge tomorrow once improved. Patient will need refill on her medication. Will check for influenza and strep. Qualifiers: Asthma severity: moderate Asthma persistence: persistent Asthma complication type: with acute exacerbation Qualified Code(s): J45.41 - Moderate persistent asthma with (acute) exacerbation (2) Diabetes mellitus Current Visit: Yes Status: Chronic Plan: Patient with type 1 diabetes. Will continue with insulin 70/30 25 units in the morning and 20 at night. Will provide sliding scale. Will check A1c. Qualifiers: Diabetes mellitus type: type 1 Diabetes mellitus complication status: with other specified complication Qualified Code(s): E10.69 - Type 1 diabetes mellitus with other specified complication (3) Hypomagnesemia Current Visit: Yes Status: Acute Plan: Will provide supplementation. Will monitor and adjust appropriately. Replacement protocol in place. (4) GERD (gastroesophageal reflux disease) Current Visit: Yes Status: Suspected Plan: Will provide PPI. Qualifiers: Esophagitis presence: esophagitis presence not specified Qualified Code(s) : K21.9 - Gastro-esophageal reflux disease without esophagitis (5) Seasonal allergies Current Visit: Yes Status: Chronic Plan: Will provide nasal spray. Discharge Plan: Home Plan to discharge in: 24 Hours - Advance Directives Does patient have a Living Will: No Does patient have a Durable POA for Healthcare: No - Code Status/Comfort Care Code Status Assessed: Yes Time Spent Managing Pts Care (In Minutes): 55
[2018-02-16 19:05] LABS: Urine Blood NEGATIVE (NEG); Urine Glucose 2+ (NEG); Urine Protein NEGATIVE (NEG); Urine Specific Gravity 1.025 (1.005-1.030)
[2018-02-16] MEDS: NA CHLORIDE 0.9% 1,000 ML IV SCH (20:03)
[2018-02-16] MEDS: ARFORMOTEROL TARTRATE 15 MCG/2 ML VIAL.NEB NEB SCH (20:48)
[2018-02-16] MEDS: FLUTICASONE 50MCG NASAL SPRAY NAS SCH (21:00)
[2018-02-16] MEDS: INSULIN -REGULAR HUMAN 50 UNIT/0.5 ML ML SQ SCH (22:02)
[2018-02-16] MEDS: BENZONATATE 100 MG CAP PO PRN (22:02)
[2018-02-16] MEDS: ENOXAPARIN 40 MG/0.4 ML SQ SCH (22:02)
[2018-02-17] MEDS: METHYLPREDNISOLONE 40 MG INJ IV SCH ×3 (00:12→17:24)
[2018-02-17 04:26] LABS: Absolute Lymphocytes (CBC) 0.7 K/uL (0.7-4.9); Absolute Monocytes 0.3 K/uL (0.1-1.3); Absolute Neutrophil 12.3 K/uL (1.8-8.0); Hematocrit 42.9 % (36.0-45.0); Lymphocytes % 5.6 % (15.3-44.8); MCH 31.8 pg (27.0-35.0); MCV 93.9 fL (80-100); MPV 8.8 fL (7.6-11.3); Monocytes % 1.9 % (3.3-12.3); RBC Red Blood Cell Count 4.57 M/uL (3.86-4.86)
[2018-02-17 04:40] LABS: BUN Blood Urea Nitrogen 17 mg/dL (6-20); Bicarbonate 27 mEq/L (21-31); Glucose Level 285 mg/dL (65-120); Magnesium 2.1 mg/dL (1.8-2.5); Potassium 4.5 mEq/L (3.6-5.0); Sodium Level 135 mEq/L (135-145)
[2018-02-17 05:20] LABS: Blood Morphology Comment NOT SEEN (NOT SEEN); Platelet Estimate ADEQ
[2018-02-17] MEDS: NA CHLORIDE 0.9% 1,000 ML IV SCH (05:41)
[2018-02-17] MEDS: PANTOPRAZOLE 40MG TABLET PO SCH (05:42)
[2018-02-17] MEDS: IPRATROPIUM BROM 0.5MG/2.5ML NEB PRN ×3 (07:55→20:02)
[2018-02-17] MEDS: ARFORMOTEROL TARTRATE 15 MCG/2 ML VIAL.NEB NEB SCH ×2 (07:55→20:01)
[2018-02-17] MEDS: ALBUTEROL 2.5 MG/3 ML NEB SOL NEB PRN ×3 (07:55→20:02)
--- NOTE | 2018-02-17 08:25 | P.PN ---
Subjective Date of Service: 02/17/18 Primary Care Provider: None Chief Complaint: Shortness of breath Subjective: Improving (Patient improving. Still with some mild shortness of breath. O2 saturations around 88%) Physical Examination - Vital Signs Temperature: 97.5 F Blood Pressure: 138/62 Pulse: 75 Respirations: 20 Pulse Ox (%): 94 - Physical Exam General: Alert, In no apparent distress, Oriented x3, Cooperative HEENT: Atraumatic, Mucous membr. moist/pink Neck: Supple Respiratory: Expiratory wheezes (Bilateral) Cardiovascular: Normal pulses, Regular rate/rhythm Gastrointestinal: Normal bowel sounds, Soft and benign, Non-distended, No tenderness, No masses, No rebound, No guarding Musculoskeletal: No erythema, No tenderness, No warmth Integumentary: No tenderness/swelling, No erythema, No warmth, No cyanosis Neurological: Normal speech, Normal strength at 5/5 x4 extr, Normal tone, Normal affect Lymphatics: No axilla or inguinal lymphadenopathy - Studies Laboratory Data (last 24 hrs) 02/16/18 12:50: PT 12.0, INR 1.02, APTT 33.8 02/16/18 12:50: WBC 8.8, Hgb 15.6 H, Hct 46.6 H, Plt Count 280 02/16/18 12:50: B-Natriuretic Peptide 13 02/16/18 12:50: Sodium 136, Potassium 4.2, BUN 15, Creatinine 0.59, Glucose 251 H, Magnesium 1.6 L, Total Bilirubin 0.5, AST 16, ALT 20, Alkaline Phosphatase 83 Medications List Reviewed: Yes Assessment & Plan - Problems (Diagnosis) (1) Asthma Current Visit: Yes Status: Acute Plan: Patient ran out of medication-Advair about a month ago. She is new to the area. Patient doing better at this time. Will continue with asthma treatment. Will reassess this afternoon. If better improved and room-air saturations stable then will discharge home. Will need to refill her Advair, ProAir. Patient will be sent home with prednisone for 10 days. Patient will need follow up with pulmonology as an outpatient. She will need to establish care locally with a physician. Qualifiers: Asthma severity: moderate Asthma persistence: persistent Asthma complication type: with acute exacerbation Qualified Code(s): J45.41 - Moderate persistent asthma with (acute) exacerbation (2) Diabetes mellitus Current Visit: Yes Status: Chronic Plan: Patient with type 1 diabetes. Will continue with insulin 70/30 25 units in the morning and 20 at night. Will provide sliding scale. Will check A1c. Qualifiers: Diabetes mellitus type: type 1 Diabetes mellitus complication status: with other specified complication Qualified Code(s): E10.69 - Type 1 diabetes mellitus with other specified complication (3) Hypomagnesemia Current Visit: Yes Status: Acute Plan: Will provide supplementation. Will monitor and adjust appropriately. Replacement protocol in place. (4) GERD (gastroesophageal reflux disease) Current Visit: Yes Status: Suspected Plan: Will provide PPI. Qualifiers: Esophagitis presence: esophagitis presence not specified Qualified Code(s) : K21.9 - Gastro-esophageal reflux disease without esophagitis (5) Seasonal allergies Current Visit: Yes Status: Chronic Plan: Will provide nasal spray. (6) Hypertension Current Visit: Yes Status: Chronic Plan: Will continue with her medication. Qualifiers: Hypertension type: essential hypertension Qualified Code(s): I10 - Essential (primary) hypertension Discharge Plan: Home Plan to discharge in: 24 Hours Time Spent Managing Pts Care (In Minutes): 55
[2018-02-17] MEDS: BENZONATATE 100 MG CAP PO PRN ×2 (08:33→17:24)
[2018-02-17] MEDS: INSULIN 70/30 100 UNITS/ML SQ SCH (08:33)
[2018-02-17] MEDS: INSULIN -REGULAR HUMAN 50 UNIT/0.5 ML ML SQ SCH ×4 (08:34→21:57)
[2018-02-17 08:38] LABS: A1c Component 1.44 mg/dL; Hemoglobin A1c 11.1 % (4-6.0)
[2018-02-17] MEDS: GUAIFENESIN 600 MG SA TAB PO SCH ×2 (08:42→21:57)
--- NOTE | 2018-02-17 09:11 | EKG ---
Test Date: 2018-02-16 Test Time: 13:00:04 Event Representative: LOGAN MEASUREMENT RESULTS: Intervals: Rate: 70 MT: 130 QRSD: 78 QT: 368 QTc: 397 [place]: P: 78 MT: 130 QRS: 83 T: 78 INTERPRETIVE STATEMENTS: Normal sinus rhythm Normal ECG No previous ECG available for comparison Electronically Signed On 02-17-18 09:08:38 CDT by Frank Zhang
[2018-02-17] MEDS: FLUTICASONE 50MCG NASAL SPRAY NAS SCH ×2 (09:15→21:56)
--- NOTE | 2018-02-17 09:51 | RAD REPORT ---
EXAM DESCRIPTION: Kiel Pa And Lat (2 Views)02/17/2018 6:53 am CLINICAL HISTORY: Cough COMPARISON: February 16, 2018 FINDINGS: A mild right lower lobe opacity has developed. The left lung appears clear of acute infilt rate. The heart is normal size IMPRESSION: Mild right lower lobe opacity could represent pneumonia or atelectasis
[2018-02-17] MEDS: Levofloxacin500mg IV 500 MG/100 ML BAG IV SCH (11:48)
[2018-02-17] MEDS ORDERED: INSULIN 70/30 100 UNITS/ML SQ SCH (16:30)
[2018-02-17] MEDS: ENOXAPARIN 40 MG/0.4 ML SQ SCH (21:57)
[2018-02-17] MEDS: LISINOPRIL 10 MG TAB PO SCH (21:58)
[2018-02-18] MEDS: METHYLPREDNISOLONE 40 MG INJ IV SCH ×3 (00:37→16:49)
[2018-02-18] MEDS: PANTOPRAZOLE 40MG TABLET PO SCH (06:18)
[2018-02-18 06:23] LABS: Absolute Monocytes 0.2 K/uL (0.1-1.3); Absolute Neutrophil 11.6 K/uL (1.8-8.0); Basophils % 0.1 % (0-1.3); Hematocrit 41.5 % (36.0-45.0); MCH 31.7 pg (27.0-35.0); MCV 95.3 fL (80-100); MPV 9.2 fL (7.6-11.3); Monocytes % 1.7 % (3.3-12.3); RBC Red Blood Cell Count 4.35 M/uL (3.86-4.86)
[2018-02-18 06:35] LABS: BUN Blood Urea Nitrogen 17 mg/dL (6-20); Bicarbonate 28 mEq/L (21-31); Glucose Level 330 mg/dL (65-120); Magnesium 1.8 mg/dL (1.8-2.5); Potassium 4.8 mEq/L (3.6-5.0); Sodium Level 138 mEq/L (135-145)
[2018-02-18] MEDS ORDERED: MAGNESIUM SULFATE 1 gm IVPB 1 GM/100 ML BAG IV ONE (07:00)
[2018-02-18] MEDS ORDERED: NA CHLORIDE 0.9% 0 ML ONE (07:22)
[2018-02-18] MEDS: ALBUTEROL 2.5 MG/3 ML NEB SOL NEB PRN ×3 (07:29→19:35)
[2018-02-18] MEDS: ARFORMOTEROL TARTRATE 15 MCG/2 ML VIAL.NEB NEB SCH ×2 (07:29→19:35)
[2018-02-18] MEDS: IPRATROPIUM BROM 0.5MG/2.5ML NEB PRN ×3 (07:29→19:35)
[2018-02-18] MEDS: INSULIN -REGULAR HUMAN 50 UNIT/0.5 ML ML SQ SCH ×4 (08:46→21:09)
[2018-02-18] MEDS: FLUTICASONE 50MCG NASAL SPRAY NAS SCH ×2 (08:46→21:11)
[2018-02-18] MEDS: INSULIN 70/30 100 UNITS/ML SQ SCH (08:47)
[2018-02-18] MEDS: GUAIFENESIN 600 MG SA TAB PO SCH ×2 (08:47→21:11)
[2018-02-18] MEDS: Levofloxacin500mg IV 500 MG/100 ML BAG IV SCH (11:27)
--- NOTE | 2018-02-18 14:02 | PN ---
Date of Progress Note: 02/18/2018 Subjective: The patient is seen and examined. Chart reviewed and case discussed with RN. The patie nt still having some difficulty breathing. Has not ambulated on 2 L of oxygen so far. Review of Systems: Negative except as above. Medications: Reviewed. Physical Examination: Vital Signs: Temperature 97.7, heart rate 62, blood pressure 112/54, respirations 20, O2 94% on 2 L via nasal cannula. The patient did desaturate to 88% earlier. General: Awake, alert, oriented x3, in some mild respiratory distress. CV: S1, S2. No murmurs. Regular rate and rhythm. Peripheral pulses present. Respiratory: Diminished breath sounds. Wheezing heard throughout. No use of accessory muscles. Gastrointestinal: Abdomen is soft, nontender, nondistended. Positive bowel sounds. Extremities: No clubbing, cyanosis, or edema. Neurologic: Nonfocal. Laboratory Data: Sodium 138, potassium 4.8, chloride 102, CO2 28, BUN 17, creatinine 0.65, glucose 3 30, calcium 9.3, magnesium 1.8. WBC 12.9, H and H 13.8 and 41.5, platelets 243, neutrophils 90%. Assessment And Plan: A 52-year-old female with: 1.Acute asthma exacerbation. The patient has been out of [facility] for the past month. The patient st ill requiring oxygen and desaturating to 88% on 2 L. We will obtain Pulmonology consultation. January e secondary to superimposed bacterial infection. 2.Pneumonia, right lower lobe. Continue with Levaquin. Follow up on blood cultures. 3.Acute respiratory distress, currently on 2 L. We will check peak flow. We will ambulate and rech esther oxygen level. 4.Diabetes mellitus type 1. We will adjust insulin dose. Hemoglobin A1c elevated at 11.1%. The berny beckford is counseled. The patient will need a PCP to adjust her insulin once out of the hospital. 5.Hypomagnesemia, replace and monitor. 6.Gastroesophageal reflux disease without esophagitis. Continue PPI. 7.Seasonal allergies. 8.Essential hypertension. Continue home medications. 9.Gastrointestinal and deep venous thrombosis prophylaxis with Lovenox and PPI. SA/MODL Voice ID: [id number] Report ID: [id number]
[2018-02-18] MEDS: ENOXAPARIN 40 MG/0.4 ML SQ SCH (21:10)
[2018-02-18] MEDS: LISINOPRIL 10 MG TAB PO SCH (21:11)
[2018-02-19] MEDS: BENZONATATE 100 MG CAP PO PRN ×2 (00:16→16:55)
[2018-02-19] MEDS: METHYLPREDNISOLONE 40 MG INJ IV SCH (00:16)
[2018-02-19] MEDS: IPRATROPIUM BROM 0.5MG/2.5ML NEB PRN (01:32)
[2018-02-19] MEDS: ALBUTEROL 2.5 MG/3 ML NEB SOL NEB PRN (01:32)
[2018-02-19 05:01] LABS: Absolute Lymphocytes (CBC) 0.9 K/uL (0.7-4.9); Absolute Monocytes 0.3 K/uL (0.1-1.3); Absolute Neutrophil 10.4 K/uL (1.8-8.0); Basophils % 0.2 % (0-1.3); Eosinophils % 0.1 % (0-4.4); Hematocrit 40.4 % (36.0-45.0); Lymphocytes % 7.4 % (15.3-44.8); MPV 9.2 fL (7.6-11.3); Monocytes % 2.7 % (3.3-12.3); RBC Red Blood Cell Count 4.29 M/uL (3.86-4.86)
[2018-02-19 05:19] LABS: BUN Blood Urea Nitrogen 19 mg/dL (6-20); Bicarbonate 27 mEq/L (21-31); Glucose Level 339 mg/dL (65-120); Magnesium 1.8 mg/dL (1.8-2.5); Potassium 4.8 mEq/L (3.6-5.0); Sodium Level 135 mEq/L (135-145)
[2018-02-19] MEDS ORDERED: MAGNESIUM SULFATE 1 gm IVPB 1 GM/100 ML BAG IV ONE (05:27)
[2018-02-19] MEDS: PANTOPRAZOLE 40MG TABLET PO SCH (06:07)
[2018-02-19] MEDS: ARFORMOTEROL TARTRATE 15 MCG/2 ML VIAL.NEB NEB SCH (07:21)
[2018-02-19] MEDS: INSULIN -REGULAR HUMAN 50 UNIT/0.5 ML ML SQ SCH ×4 (08:28→21:58)
[2018-02-19] MEDS: FLUTICASONE 50MCG NASAL SPRAY NAS SCH ×2 (08:29→21:59)
[2018-02-19] MEDS: INSULIN 70/30 100 UNITS/ML SQ SCH (08:29)
[2018-02-19] MEDS: GUAIFENESIN 600 MG SA TAB PO SCH ×2 (08:30→21:58)
--- NOTE | 2018-02-19 08:31 | P.CNS ---
Date of Consult: 02/19/18 Reason for Consult: Asthma exacerbation Primary Care Provider: None Chief Complaint: Shortness of breath History of Present Illness: Patient is 52 years of age with a history of asthma has been hospitalized before diagnosed 3 years ago active mild intermittent smoker developed problems on worsening cough shortness of breath she was in the emergency room about a month ago was discharged home on some steroids and nebulizers patient does not have any insurance she is to use Advair moved from [place] about 3 months ago attacks usually precipitated by a postnasal drainage she was admitted with a diagnosis of asthma exacerbation is doing somewhat better still has the cough slept well last night saturation satisfactory Allergies sulfamethoxazole [From Bactrim] Allergy (Mild, Verified 02/16/18 19:53) Itching trimethoprim [From Bactrim] Allergy (Mild, Verified 02/16/18 19:53) Itching Home Medications: Insulin 70/30 NPH/Reg Human [Novolin 70/30*] 20 unit SQ BEDTIME 02/16/18 Insulin 70/30 NPH/Reg Human [Novolin 70/30*] 25 units SQ DAILY 02/16/18 Lisinopril 10 mg PO BEDTIME 02/16/18 Albuterol Inhaler [Ventolin Inhaler*] 2 puff IH TID PRN #1 hfa.aer.ad 02/17/18 Albuterol Neb [Proventil 0.083% Neb Soln] 2.5 mg NEB TID PRN #90 amp 02/17/18 Fluticasone [Flonase 50MCG Nasal Sophia*] 1 sprays [place] BID #1 btl 02/17/18 Fluticasone/Salmeterol [Advair 250-50 Diskus] 1 each IH BID #1 blst.w.dev Levofloxacin [Levaquin] 500 mg PO DAILY #7 tablet 02/17/18 Pantoprazole [Protonix Tab*] 40 mg PO DAILYAC #30 tab 02/17/18 Prednisone [Deltasone] 20 mg PO SEECOM #15 tablet 02/17/18 - Past Medical/Surgical History Diabetic: Yes -: Diabetes mellitus type 1 -: Asthma -: Former tobacco use -: History small-bowel obstruction -: Laparotomy -: C-sections x2 Psychosocial/ Personal History: The patient is single. She has 2 children. She does not work. - Family History Mother Medical History: Hypertension, Other (see notes) Notes: Hypothyroidism - Social History Alcohol use: Yes CD- Drugs: No Caffeine use: Yes Place of Residence: Home Review of Systems 10-point ROS is otherwise unremarkable Respiratory: Cough, Shortness of Breath Physical Examination Temp Pulse Resp BP Pulse Ox 97.7 F 64 18 118/57 L 97 02/19/18 04:00 02/19/18 04:00 02/19/18 04:00 02/19/18 04:00 02/19/18 04:00 General: Alert, Oriented x3 HEENT: Atraumatic Neck: Supple Respiratory: Clear to auscultation bilaterally Cardiovascular: No edema, Regular rate/rhythm - Problems (1) Asthma exacerbation Current Visit: Yes Status: Acute Plan: Patient is 52 years of age admitted with worsening dyspnea presumed asthma exacerbation he still has is deep cough be discharged home Светлана, I have advised her to download a good Rx coupon on her I phone intake it to [facility] with a prescription has a corbett of this medication above is significantly less than also take home the ventilator inhaler discharge on prednisone 10 b.i.d. Zithromax for 5 days Consider stopping lisinopril blood pressure is currently low he is to follow up with me in 2 weeks
[2018-02-19] MEDS: DULERA 200/5 (MOMETASONE/FORMOTEROL) INHALER IH SCH ×2 (09:00→21:00)
[2018-02-19] MEDS: AZITHROMYCIN 250 MG TAB PO SCH (09:12)
[2018-02-19] MEDS: predniSONE 10 MG TAB PO SCH ×2 (09:12→21:58)
--- NOTE | 2018-02-19 14:28 | RAD REPORT ---
EXAM DESCRIPTION: CT - Thorax W/ Con CLINICAL HISTORY: Hypoxia COMPARISON: Recent chest radiographs. FINDINGS: Subsegmental atelectasis is present in both lung bases, greater on the right. No focal inf iltrate typical of pneumonia seen. No pleural thickening or pleural effusion. No pneumothorax. No axillary, mediastinal or hilar adenopathy. No concerning bony finding. No gross upper abdominal finding. All CT scans are performed using dose optimization technique as appropriate and may include automated exposure control or mA/KV adjustment according to patient size. IMPRESSION: Atelectasis is present in both lung bases, greater on the right.
--- NOTE | 2018-02-19 16:51 | PN ---
Date of Progress Note: 02/19/2018 Subjective: The patient seen and examined, chart reviewed, and case discussed with RN and Dr. eDs decker. The patient is still very hypoxic without oxygen. Complains of some cough and inability to brin g up sputum. Review of Systems: As above. Medications: List reviewed. Objective: Vital signs: Temperature 96.5, heart rate 64, blood pressure 119/60, respirations 16, an d O2 91% on 3 L via nasal cannula. General: Awake, alert, oriented x3, in some mild respiratory distress. Ill-appearing female. CV: S1, S2. Regular rate and rhythm. Peripheral pulses present. Respiratory: Diminished breath sounds. Diffuse wheezing. Gastrointestinal: Abdomen is soft, nontender, nondistended. Positive bowel sounds. Extremities: No clubbing, cyanosis, or edema. Neurologic: Nonfocal. Laboratory Data: Sodium 135, potassium 4.8, chloride 99, CO2 27, BUN 19, creatinine 0.64, glucose 33 9, calcium 9.1, and magnesium 1.8. WBC 11.6, H and H 14.4, 40.4, platelets 210, and neutrophils 89%. Assessment: A 52-year-old female with; 1.Acute asthma exacerbation. We will continue with breathing treatments and p.o. steroids. 2.Right lower lobe pneumonia. Continue Zithromax. Cultures negative to date. 3.Hypoxia, likely secondary to above. We will obtain CT chest. D-dimer is negative, doubt pulmonar y embolism. 4.Acute respiratory distress, currently still requiring 3 L of oxygen. 5.Diabetes mellitus type 1, hemoglobin A1c 11.1%. 6.Hyperglycemia, with long-term use of insulin. We will adjust dose. 7.Hypomagnesemia, replace and monitor. 8.Gastroesophageal reflux disease without esophagitis. Continue PPI. 9.Seasonal allergies. 10.Essential hypertension. We will hold lisinopril, which may be reason for her cough. 11.Gastrointestinal and deep venous thrombosis prophylaxis with PPI and Lovenox. SA/MODL Voice ID: [id number] Report ID: [id number]
[2018-02-19] MEDS: ENOXAPARIN 40 MG/0.4 ML SQ SCH (21:58)
[2018-02-20 05:47] LABS: Magnesium 1.8 mg/dL (1.8-2.5)
[2018-02-20 05:50] LABS: Absolute Lymphocytes (CBC) 2.3 K/uL (0.7-4.9); Absolute Monocytes 0.7 K/uL (0.1-1.3); Absolute Neutrophil 5.3 K/uL (1.8-8.0); Basophils % 0.2 % (0-1.3); Eosinophils % 1.9 % (0-4.4); Hematocrit 44.6 % (36.0-45.0); MCH 31.5 pg (27.0-35.0); MPV 9.3 fL (7.6-11.3); Monocytes % 8.3 % (3.3-12.3)
[2018-02-20] MEDS: PANTOPRAZOLE 40MG TABLET PO SCH (06:03)
[2018-02-20] MEDS ORDERED: MAGNESIUM SULFATE 1 gm IVPB 1 GM/100 ML BAG IV ONE (06:36)
[2018-02-20] MEDS: ALBUTEROL 2.5 MG/3 ML NEB SOL NEB PRN (07:54)
[2018-02-20] MEDS: IPRATROPIUM BROM 0.5MG/2.5ML NEB PRN (07:54)
[2018-02-20] MEDS: INSULIN 70/30 100 UNITS/ML SQ SCH (08:49)
[2018-02-20] MEDS: INSULIN -REGULAR HUMAN 50 UNIT/0.5 ML ML SQ SCH ×2 (08:49→11:20)
[2018-02-20] MEDS: predniSONE 10 MG TAB PO SCH (08:50)
[2018-02-20] MEDS: DULERA 200/5 (MOMETASONE/FORMOTEROL) INHALER IH SCH (08:50)
[2018-02-20] MEDS: FLUTICASONE 50MCG NASAL SPRAY NAS SCH (08:50)
[2018-02-20] MEDS: GUAIFENESIN 600 MG SA TAB PO SCH (08:51)
[2018-02-20] MEDS: AZITHROMYCIN 250 MG TAB PO SCH (08:51)
--- NOTE | 2018-02-21 10:34 | DS ---
Date of Discharge: 02/20/2018 Consultants: Dr. Lance, Pulmonology. Admitting Diagnoses: 1. Acute asthma exacerbation. 2. Diabetes mellitus type 1 with hyperglycemia. 3. Hypomagnesemia. 4. Gastroesophageal reflux disease. 5. Seasonal allergies. Discharge Diagnoses: 1. Acute asthma exacerbation, improved. 2. Hypoxia secondary to above. 3. Right lower lobe pneumonia. 4. Acute respiratory distress, resolved. 5. Diabetes mellitus type 1, hemoglobin A1c 11.1%. 6. Hyperglycemia. 7. Hypomagnesemia, replaced. 8. Gastroesophageal reflux disease without esophagitis. PPI. 9. Seasonal allergies. 10. Essential hypertension. Hospital Course: The patient is a 52-year-old female, smoker, who comes in the hospital with shortness of breath. The patient was found to be hypoxic. She was placed on supplemental oxygen. She was started on breathing treatments for her asthma exacerbation and steroids were added as well. Her initial chest x- ray was clear; however, subsequently, she did develop some cough and sputum production and possible right lower lobe opacity was found on repeat imaging study. The patient continued to be hypoxic, especially after minimal exertion, desaturating into the high 86% to 84%. The patient was seen by Dr. Lance with Pulmonology. Her medications were adjusted. A CT chest was also done, which showed atelectasis, greater on the right. The patient was given incentive spirometry and used it consistently. The patient's condition improved. Her breathing also improved. She was able to be weaned off oxygen. She was saturating 90% on room air. The patient was instructed to avoid strenuous activity. Her influenza screen was negative. Throat culture was done , which showed normal upper respiratory jag. Group A strep rapid screen was checked, which was also negative. D-dimer was negative. She was low probability for pulmonary embolism. The patient was then discharged home in a stable condition. Activity: No strenuous activity. Discharge Instructions: Follow up with primary care physician and establish care shortly after hospitalization. Follow up with Dr. Lance, Pulmonology in 1-2 weeks. The patient will be on prednisone taper along with maintenance inhaler. The patient was unable to afford Advair, therefore was given AirCynveco with Advizzerx coupon to be downloaded by the patient. The patient will continue nebulizer treatments. The patient can use Mucinex [id number] for congestion and will have Tessalon Perles for cough. Continue Flonase for seasonal allergies. Regarding her diabetes, the patient will continue with her insulin regimen of 70/30 25 units in the morning and 20 units at night. She is to follow up with PCP to adjust her insulin dose as her hemoglobin A1c is elevated. She understands risks associated with uncontrolled diabetes and understands that she requires yearly eye exams and podiatry exams. The patient will continue her lisinopril. This was stopped initially as a reason for her cough; however, did not make a difference. Therefore, the patient will continue lisinopril for renal protective reasons. She will continue Protonix for her GERD and course of antibiotics for pneumonia. Total time spent discharging the patient was 41 minutes. Physical Examination: General: Awake, alert, oriented, no acute distress. CV: S1, S2. No murmurs. Respiratory: Moving air well bilaterally. Abdomen: Soft, nontender, nondistended. Positive bowel sounds. Extremities: No clubbing, cyanosis, edema. Neurologic: Nonfocal. /ANNAMARIA Voice ID: [id number] Report ID: [id number] GET
== END 2018-02-20 12:15 | disposition home or self-care (01) | DRG 202 ==
LOC: ER 12:11 → OBSVTOIN 17:27 → ERHOLD 17:27 → 2ND 19:32
PROVIDERS: ADMIT Family Medicine; ATTEND Family Medicine
DX: J45.41 Moderate persistent asthma with (acute) exacerbation (principal); J18.9 Pneumonia, unspecified organism; J98.11 Atelectasis; R06.03 Acute respiratory distress; R09.02 Hypoxemia; E10.65 Type 1 diabetes mellitus with hyperglycemia; E83.42 Hypomagnesemia; K21.9 Gastro-esophageal reflux disease without esophagitis; I10 Essential (primary) hypertension; Z88.2 Allergy status to sulfonamides; Z87.891 Personal history of nicotine dependence
CPT/HCPCS: 36415; 71045; 71046; 71260; 80048; 80076; 81003; 81025; 82550; 82553; 82962; 83036; 83735; 83880; 84145; 84484; 85025; 85379; 85610; 85730; 87070; 87081; 87804; 93005; 94010; 94640; 96365; 96375; 99285; J1650; J2920; J2930; J3475; J7030; J7512; J7605; J7606; Q9967

== ENCOUNTER 2018-05-22 12:57 | Emergency (ER) | payer SELFPAY ==
[2018-05-22] MEDS ORDERED: AZITHROMYCIN 250 MG TAB ONE (13:24)
[2018-05-22] MEDS ORDERED: ALBUTEROL 2.5 MG/3 ML NEB SOL ONE ×2 (13:24→15:38)
[2018-05-22] MEDS ORDERED: METHYLPREDNISOLONE 125 MG INJ ONE (13:24)
[2018-05-22] MEDS ORDERED: IPRATROPIUM BROM 0.5MG/2.5ML ONE ×2 (13:25→15:38)
--- NOTE | 2018-05-22 14:19 | RAD REPORT ---
EXAM DESCRIPTION: RAD - Chest Pa And Lat (2 Views) - 05/22/2018 2:05 pm CLINICAL HISTORY: Cough and congestion COMPARISON: February 17January 2018 TECHNIQUE: PA and lateral views of the chest were obtained. FINDINGS: The lungs are clear of a peripheral mass, consolidation or failure finding. Interstitial m arkings are prominent. Pattern is similar or less pronounced than seen previously. Lung markings are similar to a January 2018 baseline study. Heart size is normal and central vasculature is within normal limits. No pleural effusion or pneumothorax seen. No acute bony finding noted. No aortic abnormal ity. IMPRESSION: Chronic interstitial lung disease similar to the baseline January 2018 study. No acute find ing.
--- NOTE | 2018-05-22 16:00 | EDPHYS ---
Physician Documentation [facility] Name: Shabnam Farnsworth Age: 52 yrs Sex: Female : 1965 Arrival Date: 05/22/2018 Time: 13:00 Bed 27 Private MD: ED Physician Shahram Campa HPI: 05/22 15:54 This 52 yrs old Female presents to ER via Ambulatory with complaints of cough.kb 15:54 The patient or guardian reports cough, that is intermittent, described as moderate, kb with no sputum, difficulty breathing. Onset: The symptoms/episode began/occurred 2 week(s) ago. Severity of symptoms: At their worst the symptoms were moderate, in the emergency department the symptoms are unchanged. Modifying factors: The symptoms are alleviated by nothing, the symptoms are aggravated by nothing. Associated signs and symptoms: The patient has no apparent associated signs or symptoms. The patient has experienced similar episodes in the past, multiple times. The patient has not recently seen a physician. Pt states she started with sinus congestion 2 weeks ago and it has moved into chest. Reports she is out of her inhaler.. 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 - Social history:: Smoking status: Patient uses tobacco products, smokes one-half pack cigarettes per day. - Ebola Screening: : Patient denies exposure to infectious person Patient denies travel to an Ebola-affected area in the 21 days before illness onset. ROS: 15:54 Constitutional: Negative for fever, chills, and weight loss, Cardiovascular: Negative kb for chest pain, palpitations, and edema, Abdomen/GI: Negative for abdominal pain, nausea, vomiting, diarrhea, and constipation, Back: Negative for injury and pain, : Negative for injury, bleeding, discharge, and swelling, MS/Extremity: Negative for injury and deformity, Skin: Negative for injury, rash, and discoloration, Neuro: Negative for headache, weakness, numbness, tingling, and seizure. 15:54 Respiratory: Positive for cough, with no reported sputum, shortness of breath, wheezing, Negative for dyspnea on exertion, hemoptysis, orthopnea, pleurisy. Exam: 15:56 Constitutional: This is a well developed, well nourished patient who is awake, alert, kb and in no acute distress. Head/Face: Normocephalic, atraumatic. Chest/axilla: Normal chest wall appearance and motion. Nontender with no deformity. No lesions are appreciated. Cardiovascular: Regular rate and rhythm with a normal S1 and S2. No gallops, murmurs, or rubs. Normal PMI, no JVD. No pulse deficits. Abdomen/GI: Soft, non-tender, with normal bowel sounds. No distension or tympany. No guarding or rebound. No evidence of tenderness throughout. Back: No spinal tenderness. No costovertebral tenderness. Full range of motion. Skin: Warm, dry with normal turgor. Normal color with no rashes, no lesions, and no evidence of cellulitis. MS/ Extremity: Pulses equal, no cyanosis. Neurovascular intact. Full, normal range of motion. Neuro: Awake and alert, GCS 15, oriented to person, place, time, and situation. Cranial nerves II-XII grossly intact. Motor strength 5/5 in all extremities. Sensory grossly intact. Cerebellar exam normal. Normal gait. 15:56 Respiratory: the patient does not display signs of respiratory distress, Respirations: normal, Breath sounds: wheezing: inspiratory expiratory that is moderate, is heard diffusely. Vital Signs: 13:01 BP 134 / 70; Pulse 115; Resp 16; Temp 97.4(TE); Pulse Ox 95% on R/A; Weight 70.76 kg; sv Height 5 ft. 4 in. (162.56 cm); Pain 0/10; 13:10 BP 119 / 70; Pulse 92; Resp 18; Pulse Ox 95% ; tl3 14:45 BP 116 / 62; Pulse 95; Resp 18; Pulse Ox 96% ; tl3 15:34 BP 103 / 74; Pulse 104; Resp 18; Pulse Ox 98% on Nebulizer Mask; tl3 13:01 Body Mass Index 26.78 (70.76 kg, 162.56 cm) sv MDM: 13:11 Patient medically screened. kb 15:57 Data reviewed: vital signs, nurses notes. Data interpreted: Pulse oximetry: on room air kb is 98 %. Interpretation: normal. Counseling: I had a detailed discussion with the patient and/or guardian regarding: the historical points, exam findings, and any diagnostic results supporting the discharge/admit diagnosis, radiology results, the need for outpatient follow up, a family practitioner, to return to the emergency department if symptoms worsen or persist or if there are any questions or concerns that arise at home. ED course: Pt reports she is feeling better after nebs. Wheezing is decreased. Educated on smoking cessation. 05/22 13:15 Order name: Chest Pa And Lat (2 Views) XRAY; Complete Time: 14:21 kb Administered Medications: 13:28 Drug: SOLU-Medrol 125 mg Route: IM; Site: right gluteus; tl3 14:43 Follow up: Response: No adverse reaction tl3 13:28 Drug: Zithromax 500 mg Route: PO; tl3 14:43 Follow up: Response: No adverse reaction tl3 13:29 Drug: DuoNeb (3:1) (2.5 mg - 0.5 mg) 3 ml Route: Nebulizer; tl3 14:43 Follow up: Response: No adverse reaction; Wheezing diminished tl3 15:34 Drug: DuoNeb (3:1) (2.5 mg - 0.5 mg) 3 ml Route: Nebulizer; tl3 16:08 Follow up: Response: No adverse reaction; Wheezing diminished tl3 Disposition: 18:47 Co-signature as Attending Physician, Shahram Campa MD. ma2 Disposition: 05/22/18 15:58 Discharged to Home. Impression: Bronchitis, not specified as acute or chronic. - Condition is Stable. - Discharge Instructions: Acute Bronchitis, [id number]. - Prescriptions for Prednisone 20 mg Oral Tablet - take 1 tablet by ORAL route once daily for 5 days; 5 tablet. Zithromax 500 mg Oral Tablet - take 1 tablet by ORAL route once daily for 5 days; 5 tablet. Albuterol Sulfate 90 mcg/actuation - inhale 1-2 puff by INHALATION route every 4-6 hours; 1 Inhaler. - Medication Reconciliation Form, Thank You Letter, Antibiotic Education, Prescription Opioid Use, Work release form form. - Follow up: Emergency Department; When: As needed; Reason: Worsening of condition. Follow up: Private Physician; When: 2 - 3 days; Reason: Recheck today's complaints, Continuance of care, Re-evaluation by your physician. Signatures: Dispatcher [employer] EDDivine Altamirano, RANULFO-C POURED CONCRETE WALL TECHNICIAN-Radha Fletcher, RN RN Shahram Campa MD MD wa2 Janeth Blakely RN RN tl3 Corrections: (The following items were deleted from the chart) 16:16 15:58 05/22/2018 15:58 Discharged to Home. Impression: Bronchitis, not specified as tl3 acute or chronic. Condition is Stable. Forms are Medication Reconciliation Form, Thank You Letter, Antibiotic Education, Prescription Opioid Use. Follow up: Emergency Department; When: As needed; Reason: Worsening of condition. Follow up: Private Physician; When: 2 - 3 days; Reason: Recheck today's complaints, Continuance of care, Re-evaluation by your physician. kb
--- NOTE | 2018-05-22 16:18 | ER ---
Nurse's Notes [facility] Name: Shabnam Farnsworth Age: 52 yrs Sex: Female : 1965 Arrival Date: 05/22/2018 Time: 13:00 Bed 27 Private MD: Diagnosis: Bronchitis, not specified as acute or chronic Presentation: 05/22 13:03 Presenting complaint: Patient states: nasal congestion/ drainage that began "a few sv weeks" ago. Pt states, it started with a head cold or sinus infection, but feels as if it has gone to her chest. Denies fever. Transition of care: patient was not received from another setting of care. Onset of symptoms is unknown. Risk Assessment: Do you want to hurt yourself or someone else? Patient reports no desire to harm self or others. Initial Sepsis Screen: Does the patient meet any 2 criteria? HR > 90 bpm. Does the patient have a suspected source of infection? No. Patient's initial sepsis screen is negative. Care prior to arrival: None. 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 - Social history:: Smoking status: Patient uses tobacco products, smokes one-half pack cigarettes per day. - Ebola Screening: : Patient denies exposure to infectious person Patient denies travel to an Ebola-affected area in the 21 days before illness onset. Screenin:10 Abuse screen: Denies threats or abuse. Nutritional screening: No deficits noted. tl3 Tuberculosis screening: No symptoms or risk factors identified. Fall Risk None identified. Assessment: 13:10 General: Appears uncomfortable, slender, well groomed, well developed, well nourished, tl3 Behavior is calm, cooperative, appropriate for age. Pain: Complains of pain in chest. 13:10 Neuro: Level of Consciousness is awake, alert, obeys commands, Oriented to person, tl3 place, time, situation, Appropriate for age. Cardiovascular: Heart tones S1 S2 present Patient's skin is warm and dry. Respiratory: Airway is patent Respiratory effort is even, unlabored, Respiratory pattern is regular, symmetrical, Breath sounds with wheezes bilaterally. GI: No signs and/or symptoms were reported involving the gastrointestinal system. : No signs and/or symptoms were reported regarding the genitourinary system. EENT: No signs and/or symptoms were reported regarding the EENT system. Derm: No signs and/or symptoms reported regarding the dermatologic system. Musculoskeletal: No signs and/or symptoms reported regarding the musculoskeletal system. 14:45 Reassessment: Patient appears in no apparent distress at this time. No changes from tl3 previously documented assessment. Patient and/or family updated on plan of care and expected duration. Pain level reassessed. Patient is alert, oriented x 3, equal unlabored respirations, skin warm/dry/pink. Sharlene at bedside discussing POC. 15:34 Reassessment: Patient appears in no apparent distress at this time. No changes from tl3 previously documented assessment. Patient and/or family updated on plan of care and expected duration. Pain level reassessed. Vital Signs: 13:01 BP 134 / 70; Pulse 115; Resp 16; Temp 97.4(TE); Pulse Ox 95% on R/A; Weight 70.76 kg; sv Height 5 ft. 4 in. (162.56 cm); Pain 0/10; 13:10 BP 119 / 70; Pulse 92; Resp 18; Pulse Ox 95% ; tl3 14:45 BP 116 / 62; Pulse 95; Resp 18; Pulse Ox 96% ; tl3 15:34 BP 103 / 74; Pulse 104; Resp 18; Pulse Ox 98% on Nebulizer Mask; tl3 13:01 Body Mass Index 26.78 (70.76 kg, 162.56 cm) sv ED Course: 13:00 Patient arrived in ED. sv 13:01 Arm band placed on right wrist. sv 13:04 Triage completed. sv 13:10 Patient has correct armband on for positive identification. Bed in low position. Call tl3 light in reach. Pulse ox on. NIBP on. Warm blanket given. 13:10 No provider procedures requiring assistance completed. Inserted saline lock: 20 gauge tl3 in left antecubital area, using aseptic technique. Blood collected. 13:11 Divine Da Silva FNP-C [facility]. kb 13:11 Shahram Campa MD is Attending Physician. kb 13:14 Janeth Blakely, RN is Primary Nurse. tl3 13:30 Radiology exam delayed due to patient receiving breathing treatment at this time. sw 14:00 Patient moved to radiology via wheelchair. sw 14:04 Chest Pa And Lat (2 Views) XRAY In Process Unspecified. EDMS 16:09 Patient did not have IV access during this emergency room visit. tl3 Administered Medications: 13:28 Drug: SOLU-Medrol 125 mg Route: IM; Site: right gluteus; tl3 14:43 Follow up: Response: No adverse reaction tl3 13:28 Drug: Zithromax 500 mg Route: PO; tl3 14:43 Follow up: Response: No adverse reaction tl3 13:29 Drug: DuoNeb (3:1) (2.5 mg - 0.5 mg) 3 ml Route: Nebulizer; tl3 14:43 Follow up: Response: No adverse reaction; Wheezing diminished tl3 15:34 Drug: DuoNeb (3:1) (2.5 mg - 0.5 mg) 3 ml Route: Nebulizer; tl3 16:08 Follow up: Response: No adverse reaction; Wheezing diminished tl3 Outcome: 15:58 Discharge ordered by . kb 16:08 Discharged to home ambulatory. tl3 16:08 Condition: stable 16:08 Discharge instructions given to patient, Instructed on discharge instructions, follow up and referral plans. medication usage, Demonstrated understanding of instructions, follow-up care, medications, Prescriptions given X 3, neb set given to pt to take home 16:16 Patient left the ED. tl3 Signatures: Dispatcher [employer] EDAL Divine Da Silva FNP-C FNP-Ckb Verde, Stephanie, RN RN sv Warren, Shannon Janeth Blakely, RN RN tl3
== END 2018-05-22 16:16 | disposition home or self-care (01) ==
LOC: ER 12:57
DX: J40 Bronchitis, not specified as acute or chronic (principal); E11.9 Type 2 diabetes mellitus without complications; F17.210 Nicotine dependence, cigarettes, uncomplicated; Z79.4 Long term (current) use of insulin; Z88.1 Allergy status to other antibiotic agents
CPT/HCPCS: 71046; 94640; 96372; 99284; J2930

== ENCOUNTER 2018-06-08 09:16 | Emergency (ER) | payer SELFPAY ==
[2018-06-08] MEDS ORDERED: ALBUTEROL 2.5 MG/3 ML NEB SOL ONE ×2 (09:38→11:32)
[2018-06-08] MEDS ORDERED: IPRATROPIUM BROM 0.5MG/2.5ML ONE (09:38)
[2018-06-08] MEDS ORDERED: METHYLPREDNISOLONE 125 MG INJ ONE (09:38)
[2018-06-08] MEDS ORDERED: MAGNESIUM SULFATE 1 gm IVPB 1 GM/100 ML BAG IV ONE (09:38)
--- NOTE | 2018-06-08 10:17 | RAD REPORT ---
EXAM DESCRIPTION: RAD - Chest Pa And Lat (2 Views) - 06/08/2018 10:03 am CLINICAL HISTORY: Cough and congestion COMPARISON: May 22 TECHNIQUE: PA and lateral views of the chest were obtained. FINDINGS: The lungs are clear of failure, infiltrate or mass. Interstitial markings are mildly prom inent, stable. Heart size is normal and central vasculature is within normal limits. No pleural effu keyon or pneumothorax seen. No acute bony finding noted. No aortic abnormality. IMPRESSION: No acute cardiopulmonary process. Interstitial markings are prominent but stable.
--- NOTE | 2018-06-08 12:02 | ER ---
Nurse's Notes [facility] Name: Shabnam Farnsworth Age: 52 yrs Sex: Female : 1965 Arrival Date: 06/08/2018 Time: 09:18 Bed 20 Private MD: None, None Diagnosis: Wheezing Presentation: 06/08 09:24 Presenting complaint: Patient states: cough, nasal congestion and chest congestion x ss weeks. Patient was recently diagnosed with bronchitis, but reports little to no relief and she is now out of her medications including her inhaler. Transition of care: patient was not received from another setting of care. Resp Distress? No respiratory distress is noted at this time. Onset of symptoms is unknown. Risk Assessment: Do you want to hurt yourself or someone else? Patient reports no desire to harm self or others. Initial Sepsis Screen: Does the patient meet any 2 criteria? No. Patient's initial sepsis screen is negative. Does the patient have a suspected source of infection? Yes: Productive cough/pneumonia. Care prior to arrival: None. 09:24 Method Of Arrival: Ambulatory ss 09:24 Acuity: CAMERON 3 ss Historical: - Allergies: 09:30 Bactrim; ss - PMHx: 09:30 Asthma; Diabetes - IDDM; ss - PSHx: 09:30 ; SBO; ss - Immunization history:: Adult Immunizations up to date. - Social history:: Smoking status: Patient uses tobacco products, smokes one-half pack cigarettes per day. - Ebola Screening: : Patient denies exposure to infectious person Patient denies travel to an Ebola-affected area in the 21 days before illness onset. Screenin:46 Abuse screen: Denies threats or abuse. Nutritional screening: No deficits noted. em Tuberculosis screening: No symptoms or risk factors identified. Fall Risk None identified. Assessment: 09:46 General: Appears in no apparent distress. uncomfortable, Behavior is calm, cooperative, em Denies fever. Pain: Denies pain. Neuro: Level of Consciousness is awake, alert, obeys commands, Oriented to person, place, time, situation. Cardiovascular: Denies chest pain, Capillary refill < 3 seconds Patient's skin is warm and dry. Respiratory: Reports shortness of breath cough that is productive, Airway is patent Respiratory effort is even, unlabored, Respiratory pattern is regular, symmetrical, Breath sounds with wheezes bilaterally. Onset: The symptoms/episode began/occurred several weeks, the patient has mild shortness of breath. GI: Abdomen is flat. : No signs and/or symptoms were reported regarding the genitourinary system. Derm: Skin is intact, Skin is pink, warm \T\ dry. Musculoskeletal: Range of motion: intact in all extremities. 10:00 General: The previous assessment is accurate. Call light remains within reach . ss 10:17 Reassessment: Patient appears in no apparent distress at this time. Patient and/or em family updated on plan of care and expected duration. Pain level reassessed. Patient is alert, oriented x 3, equal unlabored respirations, skin warm/dry/pink. Patient denies pain at this time. 10:49 Reassessment: Patient appears in no apparent distress at this time. Patient and/or em family updated on plan of care and expected duration. Pain level reassessed. Patient is alert, oriented x 3, equal unlabored respirations, skin warm/dry/pink. Patient denies pain at this time. Patient states feeling better. Patient states symptoms have improved. 11:32 Reassessment: Patient appears in no apparent distress at this time. Patient and/or em family updated on plan of care and expected duration. Pain level reassessed. Patient is alert, oriented x 3, equal unlabored respirations, skin warm/dry/pink. Patient denies pain at this time. Patient states feeling better. Patient states symptoms have improved. Respiratory: Breath sounds are clear bilaterally. Vital Signs: 09:30 BP 147 / 72; Pulse 100; Resp 20; Pulse Ox 92% on R/A; Weight 70.76 kg; Height 5 ft. 4 ss in. (162.56 cm); Pain 0/10; 10:13 BP 111 / 56; Pulse 78; Resp 18; Pulse Ox 100% on Nebulizer Mask; mh5 11:33 BP 122 / 60; Pulse 88; Resp 18; Pulse Ox 99% on R/A; Pain 0/10; em 12:31 BP 115 / 61; Pulse 78; Resp 18; Pulse Ox 95% on R/A; Pain 0/10; em 09:30 Body Mass Index 26.78 (70.76 kg, 162.56 cm) ED Course: 09:18 Patient arrived in ED. mr 09:19 None, None is Private Physician. mr 09:24 Divine Da Silva FNP-C is [facility]. kb 09:24 Ruddy Trejo MD is Attending Physician. kb 09:28 Akash Pham LVN is Primary Nurse. em 09:29 Triage completed. ss 09:30 Arm band placed on right wrist. ss 09:46 Patient has correct armband on for positive identification. Bed in low position. Call em light in reach. 09:46 No provider procedures requiring assistance completed. Inserted saline lock: 22 gauge em in right forearm, using aseptic technique. 10:00 X-ray completed. Portable x-ray completed in exam room. Patient tolerated procedure kw well. 10:02 Chest Pa And Lat (2 Views) XRAY In Process Unspecified. EDMS 12:30 IV discontinued, intact, bleeding controlled, No redness/swelling at site. Pressure em dressing applied. Administered Medications: 09:43 Drug: SOLU-Medrol 125 mg Route: IVP; Site: right forearm; ss 10:44 Follow up: Response: No adverse reaction; Marked relief of symptoms ss 09:45 Drug: Magnesium Sulfate 1 grams Route: IVPB; Infused Over: 1 hrs; Site: right forearm; em 11:23 Follow up: Response: No adverse reaction; IV Status: Completed infusion; IV Intake: em 100ml 09:45 Drug: DuoNeb (3:1) (2.5 mg - 0.5 mg) 3 ml Route: Nebulizer; em 10:45 Follow up: Response: No adverse reaction; Marked relief of symptoms ss 11:29 Drug: Albuterol 2.5 mg Route: Inhalation; em 11:30 Drug: Albuterol 2.5 mg Route: Inhalation; em 12:29 Follow up: Response: No adverse reaction; Marked relief of symptoms em 11:30 Drug: Albuterol 2.5 mg Route: Inhalation; em Intake: 11:23 IV: 100ml; Total: 100ml. em Outcome: 12:01 Discharge ordered by . kb 12:30 Discharged to home ambulatory. em 12:30 Condition: good 12:30 Discharge instructions given to patient, Instructed on discharge instructions, follow up and referral plans. medication usage, Demonstrated understanding of instructions, follow-up care, medications, Prescriptions given X 2. 12:32 Patient left the ED. em Signatures: Dispatcher [employer] EDMS Divine Da Silva FNP-C PRICE LISTER-Ckb Ilana James mr Akash Pham, LAY HEALTH ADVOCATE LAY HEALTH ADVOCATE Lisseth Laguerre, YINA RN Rita De La Torre Maria 5
--- NOTE | 2018-06-08 12:02 | EDPHYS ---
Physician Documentation [facility] Name: Shabnam Farnsworth Age: 52 yrs Sex: Female : 1965 Arrival Date: 06/08/2018 Time: 09:18 Bed 20 Private MD: None, None ED Physician Ruddy Trejo HPI: 06/08 10:02 This 52 yrs old Female presents to ER via Ambulatory with complaints of kb Congestion, Cough. 10:02 The patient or guardian reports cough, that is intermittent, described as moderate, kb with productive sputum, that is yellow. Onset: The symptoms/episode began/occurred a few weeks ago. Severity of symptoms: At their worst the symptoms were moderate, in the emergency department the symptoms are unchanged. Modifying factors: The symptoms are alleviated by nothing, the symptoms are aggravated by nothing. Associated signs and symptoms: The patient has no apparent associated signs or symptoms. The patient has experienced similar episodes in the past. The patient has not recently seen a physician. Historical: - Allergies: 09:30 Bactrim; ss - PMHx: :30 Asthma; Diabetes - IDDM; ss - PSHx: :30 ; SBO; ss - Immunization history:: Adult Immunizations up to date. - Social history:: Smoking status: Patient uses tobacco products, smokes one-half pack cigarettes per day. - Ebola Screening: : Patient denies exposure to infectious person Patient denies travel to an Ebola-affected area in the 21 days before illness onset. ROS: 10:01 Constitutional: Negative for fever, chills, and weight loss, Cardiovascular: Negative kb for chest pain, palpitations, and edema, Abdomen/GI: Negative for abdominal pain, nausea, vomiting, diarrhea, and constipation, Back: Negative for injury and pain, : Negative for injury, bleeding, discharge, and swelling, MS/Extremity: Negative for injury and deformity, Skin: Negative for injury, rash, and discoloration, Neuro: Negative for headache, weakness, numbness, tingling, and seizure. 10:01 Respiratory: Positive for cough, with yellow sputum, wheezing, Negative for dyspnea on exertion, hemoptysis, orthopnea, pleurisy, shortness of breath, sputum production. Exam: 10:01 Constitutional: This is a well developed, well nourished patient who is awake, alert, kb and in no acute distress. Head/Face: Normocephalic, atraumatic. Chest/axilla: Normal chest wall appearance and motion. Nontender with no deformity. No lesions are appreciated. Cardiovascular: Regular rate and rhythm with a normal S1 and S2. No gallops, murmurs, or rubs. Normal PMI, no JVD. No pulse deficits. Abdomen/GI: Soft, non-tender, with normal bowel sounds. No distension or tympany. No guarding or rebound. No evidence of tenderness throughout. Back: No spinal tenderness. No costovertebral tenderness. Full range of motion. Skin: Warm, dry with normal turgor. Normal color with no rashes, no lesions, and no evidence of cellulitis. MS/ Extremity: Pulses equal, no cyanosis. Neurovascular intact. Full, normal range of motion. Neuro: Awake and alert, GCS 15, oriented to person, place, time, and situation. Cranial nerves II-XII grossly intact. Motor strength 5/5 in all extremities. Sensory grossly intact. Cerebellar exam normal. Normal gait. 10:01 Respiratory: the patient does not display signs of respiratory distress, Respirations: normal, Breath sounds: wheezing: expiratory that is moderate, is heard diffusely. Vital Signs: 09:30 BP 147 / 72; Pulse 100; Resp 20; Pulse Ox 92% on R/A; Weight 70.76 kg; Height 5 ft. 4 ss in. (162.56 cm); Pain 0/10; 10:13 BP 111 / 56; Pulse 78; Resp 18; Pulse Ox 100% on Nebulizer Mask; mh5 11:33 BP 122 / 60; Pulse 88; Resp 18; Pulse Ox 99% on R/A; Pain 0/10; em 12:31 BP 115 / 61; Pulse 78; Resp 18; Pulse Ox 95% on R/A; Pain 0/10; em 09:30 Body Mass Index 26.78 (70.76 kg, 162.56 cm) ss MDM: 09:24 Patient medically screened. kb 10:01 Data reviewed: vital signs, nurses notes. Data interpreted: Pulse oximetry: on room air kb is 92 %. Interpretation: borderline. 11:18 ED course: wheezing is now mild to bilateral bases on expiration only. Pt reports she kb feels better and can breathe now.. 12:01 Counseling: I had a detailed discussion with the patient and/or guardian regarding: the kb historical points, exam findings, and any diagnostic results supporting the discharge/admit diagnosis, radiology results, the need for outpatient follow up, a family practitioner, to return to the emergency department if symptoms worsen or persist or if there are any questions or concerns that arise at home. 06/08 09:27 Order name: Chest Pa And Lat (2 Views) XRAY; Complete Time: 10:18 kb 06/08 09: Order name: IV Start; Complete Time: 09:45 kb Administered Medications: 09:43 Drug: SOLU-Medrol 125 mg Route: IVP; Site: right forearm; ss 10:44 Follow up: Response: No adverse reaction; Marked relief of symptoms ss 09:45 Drug: Magnesium Sulfate 1 grams Route: IVPB; Infused Over: 1 hrs; Site: right forearm; em 11:23 Follow up: Response: No adverse reaction; IV Status: Completed infusion; IV Intake: em 100ml 09:45 Drug: DuoNeb (3:1) (2.5 mg - 0.5 mg) 3 ml Route: Nebulizer; em 10:45 Follow up: Response: No adverse reaction; Marked relief of symptoms ss 11:29 Drug: Albuterol 2.5 mg Route: Inhalation; em 11:30 Drug: Albuterol 2.5 mg Route: Inhalation; em 12:29 Follow up: Response: No adverse reaction; Marked relief of symptoms em 11:30 Drug: Albuterol 2.5 mg Route: Inhalation; em Disposition: 17:32 Co-signature as Attending Physician, Ruddy Trejo MD. gs Disposition: 06/08/18 12:01 Discharged to Home. Impression: Wheezing. - Condition is Stable. - Discharge Instructions: Cough, Adult, [id number], Allergies, [id number]. - Prescriptions for Prednisone 20 mg Oral Tablet - take 2 tablet by ORAL route once daily for 5 days; 10 tablet. Albuterol Sulfate 90 mcg/actuation - inhale 1-2 puff by INHALATION route every 4-6 hours; 1 Inhaler. Albuterol Sulfate 2.5 mg /3 mL (0.083 %) Inhalation Solution for Nebulization - inhale 1 unit by NEBULIZATION route every 8 hours As needed; 1 box. - Medication Reconciliation Form, Thank You Letter, Antibiotic Education, Prescription Opioid Use form. - Follow up: Emergency Department; When: As needed; Reason: Worsening of condition. Follow up: Private Physician; When: 2 - 3 days; Reason: Recheck today's complaints, Continuance of care, Re-evaluation by your physician. Signatures: Dispatcher [employer] EDME Divine Da Silva, DIRECTOR OF EDUCATION-C DIRECTOR OF EDUCATION-Ckb Akash Pham, ARTIFACTS CONSERVATOR ARTIFACTS CONSERVATOR em Lisseth Boone RN RN ss Starr, Gregory, MD MD gs Corrections: (The following items were deleted from the chart) 12:32 12:01 06/08/2018 12:01 Discharged to Home. Impression: Wheezing. Condition is Stable. em Forms are Medication Reconciliation Form, Thank You Letter, Antibiotic Education, Prescription Opioid Use. Follow up: Emergency Department; When: As needed; Reason: Worsening of condition. Follow up: Private Physician; When: 2 - 3 days; Reason: Recheck today's complaints, Continuance of care, Re-evaluation by your physician. kb
== END 2018-06-08 12:32 | disposition home or self-care (01) ==
LOC: ER 09:16
DX: R06.2 Wheezing (principal); F17.210 Nicotine dependence, cigarettes, uncomplicated; Z88.1 Allergy status to other antibiotic agents
CPT/HCPCS: 71046; 94640; 96365; 96366; 96375; 99284; J2930; J3475

== ENCOUNTER 2018-06-21 11:54 | Emergency (ER) | payer SELFPAY ==
[2018-06-21] MEDS ORDERED: ALBUTEROL 2.5 MG/3 ML NEB SOL ONE (13:09)
[2018-06-21] MEDS ORDERED: IPRATROPIUM BROM 0.5MG/2.5ML ONE (13:09)
[2018-06-21] MEDS ORDERED: METHYLPREDNISOLONE 125 MG INJ ONE (13:50)
--- NOTE | 2018-06-21 13:53 | RAD REPORT ---
EXAM DESCRIPTION: RAD - Chest Pa And Lat (2 Views) - 06/21/2018 1:35 pm CLINICAL HISTORY: Cough, shortness of breath, history of bronchitis COMPARISON: June 08 TECHNIQUE: PA and lateral views the chest obtained. FINDINGS: No acute focal lung parenchymal process. No failure or volume overload. Mild chronic inter stitial lung pattern is similar to the comparison. Heart size is normal and central vasculature is wi thin normal limits. No pleural effusion or pneumothorax seen. No acute bony finding noted. No aort ic abnormality. IMPRESSION: Mild chronic interstitial lung disease similar to comparison. No acute finding.
--- NOTE | 2018-06-21 14:19 | ER ---
Nurse's Notes [facility] Name: Shabnam Farnsworth Age: 52 yrs Sex: Female : 1965 Arrival Date: 06/21/2018 Time: 11:58 Bed 23 Private MD: None, None Diagnosis: Acute sinusitis;Unspecified asthma with (acute) exacerbation Presentation: 06/21 12:08 Presenting complaint: Patient states: Sinus drainage and cough for 1 month. DX with aj bronchitis earlier this month. Reports SOB. Transition of care: patient was not received from another setting of care. Onset of symptoms was May 24, 2018. Risk Assessment: Do you want to hurt yourself or someone else? Patient reports no desire to harm self or others. Initial Sepsis Screen: Does the patient meet any 2 criteria? No. Patient's initial sepsis screen is negative. Does the patient have a suspected source of infection? No. Patient's initial sepsis screen is negative. Care prior to arrival: None. 12:08 Method Of Arrival: Ambulatory aj 12:08 Acuity: CAMERON 3 aj Triage Assessment: 12:10 General: Appears in no apparent distress. comfortable, Behavior is calm, cooperative, aj appropriate for age. Pain: Denies pain. EENT: Reports nasal congestion nasal discharge. Neuro: Level of Consciousness is awake, alert, obeys commands, Oriented to person, place, time, situation, Appropriate for age. Respiratory: Reports shortness of breath cough that is productive, Airway is patent Respiratory effort is even, unlabored, Respiratory pattern is regular, symmetrical, Breath sounds with wheezes bilaterally. Derm: Skin is intact, is healthy with good turgor, Skin is pink, warm \T\ dry. normal. 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 - Social history:: Smoking status: Patient/guardian denies using tobacco. - Ebola Screening: : Patient negative for fever greater than or equal to 101.5 degrees Fahrenheit, and additional compatible Ebola Virus Disease symptoms Patient denies exposure to infectious person Patient denies travel to an Ebola-affected area in the 21 days before illness onset No symptoms or risks identified at this time. Screenin:58 Abuse screen: Denies threats or abuse. Denies injuries from another. Nutritional ed1 screening: No deficits noted. Tuberculosis screening: No symptoms or risk factors identified. Fall Risk None identified. Assessment: 12:58 General: Appears uncomfortable, Behavior is calm, cooperative, Reports feeling ill for ed1 12-24 hours, fatigue for 12-24 hours, Denies fever, chills. Pain: Denies pain. Neuro: Level of Consciousness is awake, alert, obeys commands, Oriented to person, place, time, situation. Cardiovascular: Denies chest pain, Heart tones S1 S2 present. Respiratory: Reports shortness of breath cough that is air hunger Airway is patent Respiratory effort is even, unlabored, Respiratory pattern is regular, symmetrical, Breath sounds with wheezes bilaterally. the patient has moderate shortness of breath. GI: Patient currently denies diarrhea, nausea, vomiting. : No signs and/or symptoms were reported regarding the genitourinary system. EENT: No signs and/or symptoms were reported regarding the EENT system. Derm: Skin is pink, warm \T\ dry. Musculoskeletal: Circulation, motion, and sensation intact. Range of motion: intact in all extremities. 13:10 Reassessment: Patient appears in no apparent distress at this time. I agree with above iw assessment by MARCELLO Forrest. 13:48 Reassessment: Patient appears in no apparent distress at this time. Patient and/or ed1 family updated on plan of care and expected duration. Pain level reassessed. Patient is alert, oriented x 3, equal unlabored respirations, skin warm/dry/pink. Patient states feeling better. Patient states symptoms have improved. Cardiovascular: Rhythm is regular. 14:31 Reassessment: Patient appears in no apparent distress at this time. Patient and/or ed1 family updated on plan of care and expected duration. Pain level reassessed. Patient is alert, oriented x 3, equal unlabored respirations, skin warm/dry/pink. Patient denies pain at this time. Patient states feeling better. Patient states symptoms have improved. Vital Signs: 12:10 BP 154 / 72; Pulse 104; Resp 20; Temp 98.3; Pulse Ox 88% on R/A; Weight 68.49 kg; aj Height 5 ft. 4 in. (162.56 cm); 12:58 BP 154 / 92; Pulse 114; Resp 24; Pulse Ox 93% on 2 lpm NC; Pain 0/10; ed1 13:48 BP 114 / 74; Pulse 82; Resp 22; Pulse Ox 94% on 2 lpm NC; Pain 0/10; ed1 12:10 Body Mass Index 25.92 (68.49 kg, 162.56 cm) aj ED Course: 11:58 Patient arrived in ED. mr 11:58 None, None is Private Physician. mr 12:08 Triage completed. aj 12:13 Arm band placed on right wrist. Patient placed in waiting room, in a wheelchair, on aj oxygen. 12:34 Patient moved to radiology via wheelchair. jb2 12:39 X-ray completed. Patient tolerated procedure well. jb2 12:54 Mayco Augustin NP is PHCP. pm1 12:54 Dominic Patel MD is Attending Physician. pm1 12:54 Adriane Lim LVN is Primary Nurse. ed1 12:58 Patient has correct armband on for positive identification. Placed in gown. Bed in low ed1 position. Call light in reach. Side rails up X 1. Pulse ox on. NIBP on. Warm blanket given. 12:58 Oxygen administration via nasal cannula \T\ 2L/min. ed1 13:36 Chest Pa And Lat (2 Views) XRAY In Process Unspecified. EDMS 14:31 No provider procedures requiring assistance completed. Patient did not have IV access ed1 during this emergency room visit. Administered Medications: 13:01 CANCELLED (Physician Discretion): Albuterol 2.5 mg Inhalation once pm1 13:01 CANCELLED (Physician Discretion): AtroVENT Aerosol 0.5 mg Inhalation once pm1 13:11 Drug: Albuterol 2.5 mg Route: Inhalation; ed1 13:48 Follow up: Response: Marked relief of symptoms ed1 13:12 Drug: AtroVENT Aerosol 0.5 mg Route: Inhalation; ed1 13:48 Follow up: Response: Marked relief of symptoms ed1 13:47 Drug: SOLU-Medrol 125 mg Route: IM; Site: right gluteus; ed1 14:19 Follow up: Response: No adverse reaction ed1 14:20 Drug: Xopenex 1.25 mg Route: Inhalation; ed1 14:32 Follow up: Response: Marked relief of symptoms ed1 Outcome: 14:18 Discharge ordered by MD. pm1 14:31 Discharged to home ambulatory, with family. ed1 14:31 Condition: good 14:31 Discharge instructions given to patient, Instructed on discharge instructions, follow up and referral plans. medication usage, Demonstrated understanding of instructions, follow-up care, medications, Prescriptions given X 4. 14:32 Patient left the ED. ed1 Signatures: Dispatcher [employer] EDMS Lexi Tristan RN RN aj Rivera, Mary mr BuechcorbyStevo jb2 Amita Arias, RN RN Adriane Kasper, LINE TECHNICIAN LINE TECHNICIAN ed1 Mayco Augustin, PAINT MIXER PAINT MIXER pm1 Corrections: (The following items were deleted from the chart) 12:13 12:10 Arm band placed on left wrist. Patient placed in an exam room, shravan cheney
--- NOTE | 2018-06-21 14:19 | EDPHYS ---
Physician Documentation [facility] Name: Shabnam Farnsworth Age: 52 yrs Sex: Female : 1965 Arrival Date: 06/21/2018 Time: 11:58 Bed 23 Private MD: None, None ED Physician Dominic Patel HPI: 06/21 14:00 This 52 yrs old Female presents to ER via Ambulatory with complaints of pm1 Cough, Congestion. 14:00 The patient or guardian reports cough, with no sputum. Onset: The symptoms/episode pm1 began/occurred 2 week(s) ago. Severity of symptoms: in the emergency department the symptoms are actually worse. Modifying factors: The symptoms are alleviated by nothing, the symptoms are aggravated by nothing. Associated signs and symptoms: Pertinent negatives: chest pain, fever, rhinorrhea, sore throat. The patient has been recently seen by a physician: with similar presenting complaints, and apparently given a diagnosis of bronchitis, X-rays were performed, given steroids. 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 - Social history:: Smoking status: Patient/guardian denies using tobacco. - Ebola Screening: : Patient negative for fever greater than or equal to 101.5 degrees Fahrenheit, and additional compatible Ebola Virus Disease symptoms Patient denies exposure to infectious person Patient denies travel to an Ebola-affected area in the 21 days before illness onset No symptoms or risks identified at this time. ROS: 14:00 Constitutional: Negative for fever, chills, and weight loss, Eyes: Negative for injury, pm1 pain, redness, and discharge, ENT: Negative for injury, pain, and discharge, Neck: Negative for injury, pain, and swelling, Cardiovascular: Negative for chest pain, palpitations, and edema. 14:00 Abdomen/GI: Negative for abdominal pain, nausea, vomiting, diarrhea, and constipation, Back: Negative for injury and pain, : Negative for injury, bleeding, discharge, and swelling, MS/Extremity: Negative for injury and deformity, Skin: Negative for injury, rash, and discoloration, Neuro: Negative for headache, weakness, numbness, tingling, and seizure. 14:00 Respiratory: Positive for cough, shortness of breath. Exam: 14:00 Constitutional: This is a well developed, well nourished patient who is awake, alert, pm1 and in no acute distress. Head/Face: Normocephalic, atraumatic. Eyes: Pupils equal round and reactive to light, extra-ocular motions intact. Lids and lashes normal. Conjunctiva and sclera are non-icteric and not injected. Cornea within normal limits. Periorbital areas with no swelling, redness, or edema. ENT: Nares patent. No nasal discharge, no septal abnormalities noted. Tympanic membranes are normal and external auditory canals are clear. Oropharynx with no redness, swelling, or masses, exudates, or evidence of obstruction, uvula midline. Mucous membranes moist. Neck: Trachea midline, no thyromegaly or masses palpated, and no cervical lymphadenopathy. Supple, full range of motion without nuchal rigidity, or vertebral point tenderness. No Meningismus. Chest/axilla: Normal chest wall appearance and motion. Nontender with no deformity. No lesions are appreciated. Cardiovascular: Regular rate and rhythm with a normal S1 and S2. No gallops, murmurs, or rubs. Normal PMI, no JVD. No pulse deficits. 14:00 Abdomen/GI: Soft, non-tender, with normal bowel sounds. No distension or tympany. No guarding or rebound. No evidence of tenderness throughout. Back: No spinal tenderness. No costovertebral tenderness. Full range of motion. Skin: Warm, dry with normal turgor. Normal color with no rashes, no lesions, and no evidence of cellulitis. MS/ Extremity: Pulses equal, no cyanosis. Neurovascular intact. Full, normal range of motion. 14:00 Respiratory: the patient does not display signs of respiratory distress, Respirations: normal, Breath sounds: rhonchi, are heard diffusely. 14:00 Neuro: Orientation: is normal, Motor: is normal, moves all fours, Sensation: is normal, no obvious gross deficits, Gait: is steady, at a normal pace, without difficulty. Vital Signs: 12:10 BP 154 / 72; Pulse 104; Resp 20; Temp 98.3; Pulse Ox 88% on R/A; Weight 68.49 kg; aj Height 5 ft. 4 in. (162.56 cm); 12:58 BP 154 / 92; Pulse 114; Resp 24; Pulse Ox 93% on 2 lpm NC; Pain 0/10; ed1 13:48 BP 114 / 74; Pulse 82; Resp 22; Pulse Ox 94% on 2 lpm NC; Pain 0/10; ed1 12:10 Body Mass Index 25.92 (68.49 kg, 162.56 cm) aj MDM: 12:54 Patient medically screened. pm1 14:17 Data reviewed: vital signs. Counseling: I had a detailed discussion with the patient pm1 and/or guardian regarding: the historical points, exam findings, and any diagnostic results supporting the discharge/admit diagnosis, radiology results, the need for outpatient follow up, to return to the emergency department if symptoms worsen or persist or if there are any questions or concerns that arise at home. 12 12:12 Order name: Chest Pa And Lat (2 Views) XRAY; Complete Time: 13:58 aj Administered Medications: 13:01 CANCELLED (Physician Discretion): Albuterol 2.5 mg Inhalation once pm1 13:01 CANCELLED (Physician Discretion): AtroVENT Aerosol 0.5 mg Inhalation once pm1 13:11 Drug: Albuterol 2.5 mg Route: Inhalation; ed1 13:48 Follow up: Response: Marked relief of symptoms ed1 13:12 Drug: AtroVENT Aerosol 0.5 mg Route: Inhalation; ed1 13:48 Follow up: Response: Marked relief of symptoms ed1 13:47 Drug: SOLU-Medrol 125 mg Route: IM; Site: right gluteus; ed1 14:19 Follow up: Response: No adverse reaction ed1 14:20 Drug: Xopenex 1.25 mg Route: Inhalation; ed1 14:32 Follow up: Response: Marked relief of symptoms ed1 Disposition: 06/22 13:09 Co-signature as Attending Physician, Dominic Patel MD I agree with the assessment and kdr plan of care. Disposition: 18 14:18 Discharged to Home. Impression: Acute sinusitis, Unspecified asthma with (acute) exacerbation. - Condition is Stable. - Discharge Instructions: Asthma, Adult, How to Use an Inhaler, Sinusitis, Adult, How to Use a Nebulizer. - Prescriptions for Augmentin 875- 125 mg Oral Tablet - take 1 tablet by ORAL route every 12 hours for 10 days; 20 tablet. Prednisone 20 mg Oral Tablet - take 3 tablet by ORAL route once daily for 5 days; 15 tablet. Albuterol Sulfate 2.5 mg /3 mL (0.083 %) Inhalation Solution for Nebulization - inhale 1 unit by NEBULIZATION route every 8 hours As needed; 1 box. Albuterol Sulfate 90 mcg/actuation - inhale 1-2 puff by INHALATION route every 4-6 hours; 1 Inhaler. - Medication Reconciliation Form, Thank You Letter, Antibiotic Education, Prescription Opioid Use form. - Follow up: Emergency Department; When: As needed; Reason: Worsening of condition. Follow up: Private Physician; When: 2 - 3 days; Reason: Recheck today's complaints, Continuance of care, Re-evaluation by your physician. - Problem is new. - Symptoms have improved. Signatures: Dispatcher [employer] EDMS Lexi Tristan RN RN aj Rittger, Kevin, MD MD kdr Riggs, Erika, LVN ENGINEERING DRAFTER ed1 Mayco Augustin NP BUSINESS PERFORMANCE ANALYST pm1 Corrections: (The following items were deleted from the chart) 06/21 13:01 12:54 Albuterol 2.5 mg Inhalation once ordered. pm1 pm1 13:01 12:54 AtroVENT Aerosol 0.5 mg Inhalation once ordered. pm1 pm1 14:32 14:18 06/21/2018 14:18 Discharged to Home. Impression: Acute sinusitis; Unspecified ed1 asthma with (acute) exacerbation. Condition is Stable. Forms are Medication Reconciliation Form, Thank You Letter, Antibiotic Education, Prescription Opioid Use. Follow up: Emergency Department; When: As needed; Reason: Worsening of condition. Follow up: Private Physician; When: 2 - 3 days; Reason: Recheck today's complaints, Continuance of care, Re-evaluation by your physician. Problem is new. Symptoms have improved. pm1
[2018-06-21] MEDS ORDERED: LEVALBUTEROL 1.25 MG/3 ML NEB ONE (14:25)
== END 2018-06-21 14:32 | disposition home or self-care (01) ==
LOC: ER 11:54
DX: J45.901 Unspecified asthma with (acute) exacerbation (principal); J01.90 Acute sinusitis, unspecified; E11.9 Type 2 diabetes mellitus without complications; Z79.4 Long term (current) use of insulin; Z88.1 Allergy status to other antibiotic agents
CPT/HCPCS: 71046; 96372; 99285; J2930

== ENCOUNTER 2018-07-27 15:18 | Emergency (ER) | payer SELFPAY ==
--- NOTE | 2018-07-27 15:42 | EDPHYS ---
Physician Documentation [facility] Name: Shabnam Farnsworth Age: 52 yrs Sex: Female : 1965 Arrival Date: 07/27/2018 Time: 15:23 Bed 23 Private MD: None, None ED Physician Ruddy Trejo HPI: 07/27 15:36 This 52 yrs old Female presents to ER via Ambulatory with complaints of Flu cp Symptoms. 15:36 The patient or guardian reports cough, that is intermittent. Onset: The cp symptoms/episode began/occurred 2 month(s) ago. Severity of symptoms: in the emergency department the symptoms are unchanged, despite home interventions. Associated signs and symptoms: Pertinent positives: rhinorrhea, sore throat, sinus pressure, sinus congestion, headaches. Historical: - Allergies: 15:29 Bactrim; la1 - PMHx: 15:29 Asthma; Diabetes - IDDM; la1 - Immunization history:: Adult Immunizations up to date. - Social history:: Smoking status: Patient uses tobacco products, smokes one-half pack cigarettes per day. - Ebola Screening: : No symptoms or risks identified at this time. ROS: 15:38 Constitutional: Negative for body aches, chills, fever, poor PO intake. cp 15:38 Eyes: Negative for injury, pain, redness, and discharge. cp 15:38 ENT: Positive for sore throat, Negative for drainage from ear(s), ear pain, difficulty swallowing, difficulty handling secretions. 15:38 Cardiovascular: Negative for chest pain, palpitations. 15:38 Respiratory: Positive for cough, "sounds productive", shortness of breath, wheezing. 15:38 Abdomen/GI: Negative for abdominal pain, vomiting, diarrhea, constipation. 15:38 Skin: Negative for cellulitis, rash. 15:38 Neuro: Positive for headache, Negative for altered mental status, weakness. 15:38 All other systems are negative. Exam: 15:40 Constitutional: The patient appears in no acute distress, alert, awake, non-toxic, well cp developed, well nourished. 15:40 Head/face: Sinus tenderness, that is mild, is located over the right frontal sinus, cp left frontal sinus, right maxillary sinus and left maxillary sinus. 15:40 Eyes: Periorbital structures: appear normal, Pupils: equal, round, and reactive to light and accomodation, Extraocular movements: intact throughout, Conjunctiva: normal, no exudate, no injection, Sclera: no appreciated abnormality, Lids and lashes: appear normal, bilaterally. 15:40 ENT: External ear(s): are unremarkable, Ear canal(s): are normal, clear, TM's: dullness, bilaterally, Nose: nasal drainage, that is minimal, Mouth: Lips: moist, Oral mucosa: pink and intact, moist, Posterior pharynx: is normal, airway is patent, no erythema, no exudate. 15:40 Neck: ROM/movement: is normal, is supple, without pain, no range of motions limitations, no meningismus, no nuchal rigidity, Lymph nodes: no appreciated lymphadenopathy. 15:40 Chest/axilla: Inspection: normal, Palpation: is normal, no crepitus, no tenderness. 15:40 Cardiovascular: Rate: normal, Rhythm: regular. 15:40 Respiratory: the patient does not display signs of respiratory distress, Respirations: normal, no use of accessory muscles, no retractions, no splinting, no tachypnea, Breath sounds: are clear throughout, no decreased breath sounds, no stridor, no wheezing, bronchial sounds, that are mild, are heard diffusely. 15:40 Abdomen/GI: Inspection: abdomen appears normal, Palpation: abdomen is soft and non-tender, in all quadrants. 15:40 Skin: cellulitis, is not appreciated, no rash present. Vital Signs: 15:29 BP 150 / 70; Pulse 97; Resp 16; Temp 97.3; Pulse Ox 98% on R/A; Weight 68.04 kg; Height la1 5 ft. 4 in. (162.56 cm); 16:04 BP 148 / 65; Pulse 95; Resp 16; Pulse Ox 99% on R/A; kr2 15:29 Body Mass Index 25.75 (68.04 kg, 162.56 cm) la1 MDM: 15:31 Patient medically screened. cp 15:40 Data reviewed: vital signs, nurses notes, and as a result, I will discharge patient. cp 15:40 Differential Diagnosis: Bronchitis Upper Respiratory Infection Sinusitis Asthma cp Exacerbation Pneumonia. Counseling: I had a detailed discussion with the patient and/or guardian regarding: the historical points, exam findings, and any diagnostic results supporting the discharge/admit diagnosis, to return to the emergency department if symptoms worsen or persist or if there are any questions or concerns that arise at home. Response to treatment: the patient's symptoms have mildly improved after treatment, and as a result, I will discharge patient. Administered Medications: 15:46 Drug: Albuterol 2.5 mg Route: Inhalation; kr2 16:07 Follow up: Response: Marked relief of symptoms kr2 15:46 Drug: AtroVENT Aerosol 0.5 mg Route: Inhalation; kr2 16:07 Follow up: Response: No adverse reaction; Marked relief of symptoms kr2 15:48 Drug: Tessalon Perle 200 mg Route: PO; kr2 16:06 Follow up: Response: No adverse reaction kr2 Disposition: 16:15 Chart complete. 07/28 09:53 Co-signature as Attending Physician, Ruddy Trejo MD. Disposition: 07/27/18 15:41 Discharged to Home. Impression: Acute bronchitis, unspecified, Acute sinusitis. - Condition is Stable. - Discharge Instructions: Acute Bronchitis, Adult, Sinusitis, Adult. - Prescriptions for Tessalon Perles 100 mg Oral Capsule - take 1 capsule by ORAL route every 8 hours As needed; 20 capsule. Zithromax Z- [place] 250 mg Oral Tablet - take 1 tablet by ORAL route as directed for 5 days Day 1 - take two (2) tablets one time. Day 2, 3, 4 , 5 take one (1) tablet once daily.; 6 tablet. Albuterol Sulfate 90 mcg/actuation - inhale 1-2 puff by INHALATION route every 4-6 hours; 1 Inhaler. Albuterol Sulfate 2.5 mg /3 mL (0.083 %) Inhalation Solution for Nebulization - inhale 1 unit by NEBULIZATION route every 8 hours As needed; 1 box. Prednisone 20 mg Oral Tablet - take 2 tablet by ORAL route once daily for 5 days; 10 tablet. - Medication Reconciliation Form, Thank You Letter, Antibiotic Education, Prescription Opioid Use form. - Follow up: Private Physician; When: 1 week; Reason: symptoms continue. - Problem is new. - Symptoms are unchanged. Signatures: Zachary Delgado RN RN la1 Chris Murcia PA PA cp Starr, Gregory, MD MD Yen Saunders RN RN kr2 Corrections: (The following items were deleted from the chart) 07/27 16:08 15:41 07/27/2018 15:41 Discharged to Home. Impression: Acute bronchitis, unspecified; kr2 Acute sinusitis. Condition is Stable. Forms are Medication Reconciliation Form, Thank You Letter, Antibiotic Education, Prescription Opioid Use. Follow up: Private Physician; When: 1 week; Reason: symptoms continue. Problem is new. Symptoms are unchanged. cp
--- NOTE | 2018-07-27 15:42 | ER ---
Nurse's Notes [facility] Name: Shabnam Farnsworth Age: 52 yrs Sex: Female : 1965 Arrival Date: 07/27/2018 Time: 15:23 Bed 23 Private MD: None, None Diagnosis: Acute bronchitis, unspecified;Acute sinusitis Presentation: 07/27 15:28 Presenting complaint: Patient states: Productive cough, headache, sinus pressure since la11 May, worsening. Transition of care: patient was not received from another setting of care. Onset of symptoms was July 27, 2018. Risk Assessment: Do you want to hurt yourself or someone else? Patient reports no desire to harm self or others. Initial Sepsis Screen: Does the patient meet any 2 criteria? No. Patient's initial sepsis screen is negative. Does the patient have a suspected source of infection? No. Patient's initial sepsis screen is negative. Care prior to arrival: None. 15:28 Method Of Arrival: Ambulatory la1 15:28 Acuity: CAMER[place] 3 la1 Historical: - Allergies: 15:29 Bactrim; la1 - PMHx: 15:29 Asthma; Diabetes - IDDM; la1 - Immunization history:: Adult Immunizations up to date. - Social history:: Smoking status: Patient uses tobacco products, smokes one-half pack cigarettes per day. - Ebola Screening: : No symptoms or risks identified at this time. Screenin:31 Abuse screen: Denies threats or abuse. Denies injuries from another. Nutritional kr2 screening: No deficits noted. Tuberculosis screening: No symptoms or risk factors identified. Fall Risk None identified. Assessment: 15:35 General: Appears in no apparent distress. uncomfortable, well groomed, well developed, kr2 well nourished, Behavior is calm, cooperative, appropriate for age. Pain: Denies pain. Neuro: Level of Consciousness is awake, alert, obeys commands, Oriented to person, place, time, situation. Cardiovascular: Capillary refill < 3 seconds in bilateral fingers Patient's skin is warm and dry. Respiratory: Airway is patent Respiratory effort is even, unlabored, Respiratory pattern is regular, symmetrical, Breath sounds are clear bilaterally. Patient has dry hacking cough at this time Parent/caregiver reports the patient having cough that is hacking, persistent since May, off and on. GI: Abdomen is flat, non-distended, Bowel sounds present X 4 quads. EENT: Oral mucosa is moist. Derm: Skin is intact, is healthy with good turgor, Skin is pink, warm \T\ dry. Musculoskeletal: Circulation, motion, and sensation intact. 16:04 Reassessment: Patient appears in no apparent distress at this time. Patient and/or kr2 family updated on plan of care and expected duration. Pain level reassessed. Patient is alert, oriented x 3, equal unlabored respirations, skin warm/dry/pink. Patient denies pain at this time. Patient states symptoms have improved. Vital Signs: 15:29 BP 150 / 70; Pulse 97; Resp 16; Temp 97.3; Pulse Ox 98% on R/A; Weight 68.04 kg; Height la1 5 ft. 4 in. (162.56 cm); 16:04 BP 148 / 65; Pulse 95; Resp 16; Pulse Ox 99% on R/A; kr2 15:29 Body Mass Index 25.75 (68.04 kg, 162.56 cm) la1 ED Course: 15:23 Patient arrived in ED. sb2 15:24 None, None is Private Physician. sb2 15:29 Triage completed. la1 15:30 Arm band placed on right wrist. la1 15:31 Chris Murcia PA is PHCP. cp 15:31 Ruddy Trejo MD is Attending Physician. cp 15:35 Patient has correct armband on for positive identification. Bed in low position. Call kr2 light in reach. Side rails up X 1. Pulse ox on. NIBP on. Door closed. Lights dimmed. 15:46 Yen Saunders, YINA is Primary Nurse. kr2 16:05 No provider procedures requiring assistance completed. Patient did not have IV access kr2 during this emergency room visit. Administered Medications: 15:46 Drug: Albuterol 2.5 mg Route: Inhalation; kr2 16:07 Follow up: Response: Marked relief of symptoms kr2 15:46 Drug: AtroVENT Aerosol 0.5 mg Route: Inhalation; kr2 16:07 Follow up: Response: No adverse reaction; Marked relief of symptoms kr2 15:48 Drug: Tessalon Perle 200 mg Route: PO; kr2 16:06 Follow up: Response: No adverse reaction kr2 Outcome: 15:41 Discharge ordered by . cp 16:05 Discharged to home ambulatory. kr2 16:05 Condition: good 16:05 Discharge instructions given to patient, Instructed on discharge instructions, follow up and referral plans. medication usage, Demonstrated understanding of instructions, follow-up care, medications, Prescriptions given X 5 16:08 Patient left the ED. kr2 Signatures: Zachary Delgado RN RN la1 Chris Murcia PA PA cp Reaves, Karey RN RN kr2 Susie Mccarthy2
[2018-07-27] MEDS ORDERED: ALBUTEROL 2.5 MG/3 ML NEB SOL ONE (15:52)
[2018-07-27] MEDS ORDERED: BENZONATATE 100 MG CAP PO ONE ×2 (15:52→15:55)
[2018-07-27] MEDS ORDERED: IPRATROPIUM BROM 0.5MG/2.5ML ONE (15:52)
== END 2018-07-27 16:08 | disposition home or self-care (01) ==
LOC: ER 15:18
DX: J20.9 Acute bronchitis, unspecified (principal); J01.90 Acute sinusitis, unspecified; F17.210 Nicotine dependence, cigarettes, uncomplicated
CPT/HCPCS: 99284

== ENCOUNTER 2018-08-12 00:02 | Emergency (ER) | payer SELFPAY ==
[2018-08-12] MEDS ORDERED: IPRATROPIUM BROM 0.5MG/2.5ML ONE (00:57)
[2018-08-12] MEDS ORDERED: METHYLPREDNISOLONE 125 MG INJ ONE (00:57)
[2018-08-12] MEDS ORDERED: LEVALBUTEROL 1.25 MG/3 ML NEB ONE (00:57)
--- NOTE | 2018-08-12 02:59 | EDPHYS ---
Physician Documentation [facility] Name: Shabnam Farnsworth Age: 52 yrs Sex: Female : 1965 Arrival Date: 08/12/2018 Time: 00:06 Bed 16 Private MD: ED Physician Matt Smith HPI: 08/12 02:21 This 52 yrs old Female presents to ER via Ambulatory with complaints of rn Breathing Difficulty. 02:21 The patient has shortness of breath at rest. rn 02:21 Onset: The symptoms/episode began/occurred 2 day(s) ago. Duration: The symptoms are rn intermittent. The patient's shortness of breath is aggravated by exertion, light activity. Severity of symptoms: At their worst the symptoms were moderate in the emergency department the symptoms are unchanged. The patient has experienced similar episodes in the past. The patient has been recently seen by a physician:. 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 Using nebulizer without complete resolution, couldn't sleep tonight due to cough.. Historical: - Allergies: 00:32 Bactrim; bb - Home Meds: 00:32 Albuterol Inhl [Active]; Albuterol Inhl [Active]; lisinopril 10 mg Oral tab 1 tab once bb daily [Active]; Novolin 70/30 [place] Sub-Q [Active]; - PMHx: 00:32 Asthma; Diabetes - IDDM; bb - PSHx: 00:32 ; Small bowel obstruction; bb - Immunization history:: Adult Immunizations up to date. - Social history:: Smoking status: Patient uses tobacco products, smokes one-half pack cigarettes per day, Patient uses alcohol, occasionally. - Ebola Screening: : No symptoms or risks identified at this time. - Family history:: not pertinent. - Hospitalizations: : No recent hospitalization is reported. ROS: 02:21 Constitutional: Negative for fever, chills, and weight loss, Eyes: Negative for injury, rn pain, redness, and discharge, Neck: Negative for injury, pain, and swelling, Cardiovascular: Negative for chest pain, palpitations, and edema, Respiratory: + sob and cough Abdomen/GI: Negative for abdominal pain, nausea, vomiting, diarrhea, and constipation, MS/Extremity: Negative for injury and deformity, Skin: Negative for injury, rash, and discoloration, Neuro: Negative for headache, weakness, numbness, tingling, and seizure. Exam: 02:21 Constitutional: This is a well developed, well nourished patient who is awake, alert, rn persistent cough with audible wheezing Head/Face: Normocephalic, atraumatic. Eyes: Pupils equal round and reactive to light, extra-ocular motions intact. Lids and lashes normal. Conjunctiva and sclera are non-icteric and not injected. Cornea within normal limits. Periorbital areas with no swelling, redness, or edema. ENT: MMM, no stridor Cardiovascular: Regular rate and rhythm. No pulse deficits. Respiratory: + bilateral wheezing with moderate tachypnea. Abdomen/GI: soft, non-tender Skin: Warm, dry MS/ Extremity: Pulses equal, no cyanosis Neuro: Awake and alert, GCS 15, oriented to person, place, time, and situation. Cranial nerves II-XII grossly intact. Motor strength 5/5 in all extremities. Sensory grossly intact. Vital Signs: 00:32 BP 159 / 92; Pulse 105; Resp 20 S; Temp 97.6(O); Pulse Ox 94% on R/A; Weight 68.95 kg bb (R); Height 5 ft. 4 in. (162.56 cm) (R); Pain 0/10; 01:37 BP 119 / 72; Pulse 96; Resp 18; Pulse Ox 94% on R/A; jb4 02:45 BP 120 / 72; Pulse 89; Resp 16; Pulse Ox 95% on R/A; jb4 00:32 Body Mass Index 26.09 (68.95 kg, 162.56 cm) bb MDM: 00:34 Patient medically screened. rn 02:21 Differential diagnosis: Bronchitis Chronic Obstructive Pulmonary Disease pneumonia, rn Pneumothorax pulmonary edema. Data reviewed: vital signs, nurses notes, lab test result(s), radiologic studies, plain films, and as a result, I will discharge patient. 02:37 Counseling: I had a detailed discussion with the patient and/or guardian regarding: the rn historical points, exam findings, and any diagnostic results supporting the discharge/admit diagnosis, lab results, radiology results, smoking cessation. 08/12 00:40 Order name: Flu rn 08/12 02:56 Order name: Influenza Screen (A ; Complete Time: 02:57 EDMS 08/12 00:40 Order name: XRAY Chest (1 view) rn 08/12 00:40 Order name: IV Start; Complete Time: 01:07 rn Administered Medications: 00:52 Drug: AtroVENT Aerosol 0.5 mg Route: Inhalation; jb4 03:00 Follow up: Response: No adverse reaction; Wheezing diminished jb4 00:53 Drug: Xopenex (3) 1.25 mg Route: Inhalation; jb4 03:00 Follow up: Response: No adverse reaction; Wheezing diminished jb4 01:00 Drug: SOLU-Medrol 125 mg Route: IVP; Site: left antecubital; jb4 03:00 Follow up: Response: No adverse reaction jb4 Disposition: 08/12/18 02:58 Discharged to Home. Impression: Bronchitis, not specified as acute or chronic, Dyspnea, unspecified. - Condition is Stable. - Discharge Instructions: Chronic Bronchitis, Cough, Adult. - Prescriptions for Augmentin 875- 125 mg Oral Tablet - take 1 tablet by ORAL route every 12 hours for 10 days; 20 tablet. Prednisone 20 mg Oral Tablet - take 3 tablet by ORAL route once daily for 5 days; 15 tablet. Albuterol Sulfate 2.5 mg /3 mL (0.083 %) Inhalation Solution for Nebulization - inhale 1 unit by NEBULIZATION route every 8 hours As needed; 1 box. Albuterol Sulfate 90 mcg/actuation - inhale 1-2 puff by INHALATION route every 4-6 hours; 1 Inhaler. - Medication Reconciliation Form, Thank You Letter, Antibiotic Education, Prescription Opioid Use form. - Follow up: Private Physician; When: As needed; Reason: Recheck today's complaints, Re-evaluation by your physician. - Problem is new. - Symptoms have improved. Signatures: Dispatcher [employer] EDMS Cheryle Issa RN RN bb Nieto, Roman, MD MD rn Bryson, James, RN RN jb4 Corrections: (The following items were deleted from the chart) 03:13 02:58 08/12/2018 02:58 Discharged to Home. Impression: Bronchitis, not specified as jb4 acute or chronic; Dyspnea, unspecified. Condition is Stable. Discharge Instructions: Chronic Bronchitis, Cough, Adult. Prescriptions for Augmentin 875-125 mg Oral Tablet - take 1 tablet by ORAL route every 12 hours for 10 days; 20 tablet, Prednisone 20 mg Oral Tablet - take 3 tablet by ORAL route once daily for 5 days; 15 tablet, Albuterol Sulfate 2.5 mg /3 mL (0.083 %) Inhalation Solution for Nebulization - inhale 1 unit by NEBULIZATION route every 8 hours As needed; 1 box, Albuterol Sulfate 90 mcg/actuation - inhale 1-2 puff by INHALATION route every 4-6 hours; 1 Inhaler. and Forms are Medication Reconciliation Form, Thank You Letter, Antibiotic Education, Prescription Opioid Use. Follow up: Private Physician; When: As needed; Reason: Recheck today's complaints, Re-evaluation by your physician. Problem is new. Symptoms have improved. rn
--- NOTE | 2018-08-12 02:59 | ER ---
Nurse's Notes [facility] Name: Shabnam Farnsworth Age: 52 yrs Sex: Female : 1965 Arrival Date: 08/12/2018 Time: 00:06 Bed 16 Private MD: Diagnosis: Bronchitis, not specified as acute or chronic;Dyspnea, unspecified Presentation: 08/12 00:27 Presenting complaint: Patient states: she has been having symptoms of bronchitis for bb several months and finished antibiotics a week ago for a sinus infection but now shortness of breath has gotten worse and she feels like she cannot get a deep breath when she lies down. Transition of care: patient was not received from another setting of care. Onset of symptoms was August 12, 2018. Risk Assessment: Do you want to hurt yourself or someone else? Patient reports no desire to harm self or others. Initial Sepsis Screen: Does the patient meet any 2 criteria? No. Patient's initial sepsis screen is negative. Does the patient have a suspected source of infection? No. Patient's initial sepsis screen is negative. Care prior to arrival: None. 00:27 Method Of Arrival: Ambulatory bb 00:27 Acuity: CAMERON 3 bb Historical: - Allergies: 00:32 Bactrim; bb - Home Meds: 00:32 Albuterol Inhl [Active]; Albuterol Inhl [Active]; lisinopril 10 mg Oral tab 1 tab once bb daily [Active]; Novolin 70/30 [place] Sub-Q [Active]; - PMHx: 00:32 Asthma; Diabetes - IDDM; bb - PSHx: 00:32 ; Small bowel obstruction; bb - Immunization history:: Adult Immunizations up to date. - Social history:: Smoking status: Patient uses tobacco products, smokes one-half pack cigarettes per day, Patient uses alcohol, occasionally. - Ebola Screening: : No symptoms or risks identified at this time. - Family history:: not pertinent. - Hospitalizations: : No recent hospitalization is reported. Screenin:50 Abuse screen: Denies threats or abuse. Nutritional screening: No deficits noted. jb4 Tuberculosis screening: No symptoms or risk factors identified. Fall Risk None identified. Assessment: 00:50 General: Appears in no apparent distress. uncomfortable, Behavior is calm, cooperative, jb4 appropriate for age. Pain: Denies pain. Neuro: Level of Consciousness is awake, alert, obeys commands, Oriented to person, place, time, situation. Cardiovascular: Heart tones S1 S2 present Patient's skin is warm and dry. Respiratory: Airway is patent Respiratory effort is even, labored, Respiratory pattern is regular, symmetrical, Breath sounds are diminished bilaterally. Breath sounds with wheezes bilaterally. Parent/caregiver reports the patient having shortness of breath cough that is. GI: No signs and/or symptoms were reported involving the gastrointestinal system. : No signs and/or symptoms were reported regarding the genitourinary system. EENT: No signs and/or symptoms were reported regarding the EENT system. Derm: Skin is intact, Skin is pink, warm \T\ dry. Musculoskeletal: Circulation, motion, and sensation intact. 01:37 Reassessment: Patient appears in no apparent distress at this time. Patient and/or jb4 family updated on plan of care and expected duration. Pain level reassessed. Patient is alert, oriented x 3, equal unlabored respirations, skin warm/dry/pink. Patient states feeling better. 02:58 Reassessment: Patient appears in no apparent distress at this time. Patient and/or jb4 family updated on plan of care and expected duration. Pain level reassessed. Patient is alert, oriented x 3, equal unlabored respirations, skin warm/dry/pink. Vital Signs: 00:32 BP 159 / 92; Pulse 105; Resp 20 S; Temp 97.6(O); Pulse Ox 94% on R/A; Weight 68.95 kg bb (R); Height 5 ft. 4 in. (162.56 cm) (R); Pain 0/10; 01:37 BP 119 / 72; Pulse 96; Resp 18; Pulse Ox 94% on R/A; jb4 02:45 BP 120 / 72; Pulse 89; Resp 16; Pulse Ox 95% on R/A; jb4 00:32 Body Mass Index 26.09 (68.95 kg, 162.56 cm) bb ED Course: 00:06 Patient arrived in ED. es 00:31 Triage completed. bb 00:32 Arm band placed on Patient placed in an exam room, on a stretcher, on pulse oximetry. bb 00:34 Matt Smith MD is Attending Physician. rn 00:46 Giovani, Peng, RN is Primary Nurse. jb4 00:50 Patient has correct armband on for positive identification. Call light in reach. Side jb4 rails up X 1. Pulse ox on. NIBP on. 00:50 Inserted saline lock: 20 gauge in left antecubital area, using aseptic technique. jb4 00:57 X-ray completed. Portable x-ray completed in exam room. Patient tolerated procedure kw well. 03:12 No provider procedures requiring assistance completed. IV discontinued, intact, jb4 bleeding controlled. Administered Medications: 00:52 Drug: AtroVENT Aerosol 0.5 mg Route: Inhalation; jb4 03:00 Follow up: Response: No adverse reaction; Wheezing diminished jb4 00:53 Drug: Xopenex (3) 1.25 mg Route: Inhalation; jb4 03:00 Follow up: Response: No adverse reaction; Wheezing diminished jb4 01:00 Drug: SOLU-Medrol 125 mg Route: IVP; Site: left antecubital; jb4 03:00 Follow up: Response: No adverse reaction jb4 Outcome: 02:58 Discharge ordered by . rn 03:12 Discharged to home ambulatory. jb4 03:12 Condition: stable 03:12 Discharge instructions given to patient, Instructed on discharge instructions, follow up and referral plans. medication usage, Demonstrated understanding of instructions, follow-up care, medications, Prescriptions given X 4. 03:13 Patient left the ED. jb4 Signatures: Yanci Serrano Brenda, RN RN bb Matt Smith MD MD rn Whitley, Kimberlee kw Bryson, James, RN RN jb4 Corrections: (The following items were deleted from the chart) 01:40 00:50 Respiratory: Airway is patent Respiratory effort is even, unlabored, Respiratory jb4 pattern is regular, symmetrical, Breath sounds are diminished bilaterally. Breath sounds with wheezes bilaterally. Parent/caregiver reports the patient having shortness of breath cough that is jb4
--- NOTE | 2018-08-12 08:48 | RAD REPORT ---
EXAM DESCRIPTION: Kiel Single View08/12/2018 12:57 am CLINICAL HISTORY: Cough COMPARISON: June 2018 FINDINGS: The lungs appear clear of acute infiltrate. Lungs are hyperaerated. The heart is normal size IMPRESSION: No acute abnormalities displayed
== END 2018-08-12 03:13 | disposition home or self-care (01) ==
LOC: ER 00:02
DX: J40 Bronchitis, not specified as acute or chronic (principal); J45.909 Unspecified asthma, uncomplicated; F17.210 Nicotine dependence, cigarettes, uncomplicated; E11.9 Type 2 diabetes mellitus without complications; Z79.4 Long term (current) use of insulin; Z88.1 Allergy status to other antibiotic agents
CPT/HCPCS: 71045; 87804; 96374; 99284; J2930

== ENCOUNTER 2018-08-26 18:54 | Emergency (ER) | payer SELFPAY ==
[2018-08-26] MEDS ORDERED: METHYLPREDNISOLONE 125 MG INJ ONE (20:16)
[2018-08-26] MEDS ORDERED: ALBUTEROL 2.5 MG/3 ML NEB SOL ONE ×2 (20:16→21:44)
[2018-08-26] MEDS ORDERED: IPRATROPIUM BROM 0.5MG/2.5ML ONE (20:17)
[2018-08-26] MEDS ORDERED: Magnesium Sulfate 2gm IVPB 2 G/50 ML BAG IV ONE (20:17)
--- NOTE | 2018-08-26 21:17 | RAD REPORT ---
EXAM DESCRIPTION: RAD - Chest Pa And Lat (2 Views) - 08/26/2018 9:05 pm CLINICAL HISTORY: Cough and congestion COMPARISON: August 12 TECHNIQUE: PA and lateral views of the chest were obtained. FINDINGS: The lungs are clear of a focal consolidation, mass or failure finding. Interstitial markin gs are prominent but not clearly different from comparison. Heart size is normal and central vascul ature is within normal limits. No pleural effusion or pneumothorax seen. No acute bony finding note d. No aortic abnormality. IMPRESSION: No acute cardiopulmonary process. Chest is not significantly different from comparison.
--- NOTE | 2018-08-26 22:23 | ER ---
Nurse's Notes [facility] Name: Shabnam Farnsworth Age: 52 yrs Sex: Female : 1965 Arrival Date: 08/26/2018 Time: 18:57 Bed 20 Private MD: None, None Diagnosis: Bronchitis, not specified as acute or chronic Presentation: 08/26 19:13 Presenting complaint: Patient states: Productive cough with yellow flem that began lp1 today; States diagnosed with bronchitis 2 weeks ago, improved with steroids but severe today; States feeling short of breath when laying flat. Transition of care: patient was not received from another setting of care. Onset of symptoms was August 26, 2018. Risk Assessment: Do you want to hurt yourself or someone else? Patient reports no desire to harm self or others. Initial Sepsis Screen: Does the patient meet any 2 criteria? No. Patient's initial sepsis screen is negative. Does the patient have a suspected source of infection? No. Patient's initial sepsis screen is negative. Care prior to arrival: None. 19:13 Method Of Arrival: Ambulatory lp1 19:13 Acuity: CAMERON 3 lp1 Triage Assessment: 19:15 General: Appears in no apparent distress. Behavior is appropriate for age. Pain: Denies lp1 pain. Neuro: Level of Consciousness is awake, alert, obeys commands. Respiratory: Reports shortness of breath cough that is productive, Airway is patent Respiratory effort is even, unlabored, Breath sounds with wheezes bilaterally. Onset: The symptoms/episode began/occurred this morning, the patient has mild shortness of breath. Derm: Skin is pink, warm \T\ dry. 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 - Social history:: Smoking status: Patient uses tobacco products, smokes one-half pack cigarettes per day. - Ebola Screening: : No symptoms or risks identified at this time. Screenin:19 Abuse screen: Denies threats or abuse. Nutritional screening: No deficits noted. jd3 Tuberculosis screening: No symptoms or risk factors identified. Fall Risk IV access (20 points). Ambulatory Aid- None/Bed Rest/Nurse Assist (0 pts). Gait- Normal/Bed Rest/Wheelchair (0 pts) Mental Status- Oriented to own ability (0 pts). Total Meza Fall Scale indicates No Risk (0-24 pts). Assessment: 20:19 General: Appears in no apparent distress. uncomfortable, Behavior is calm, cooperative, jd3 appropriate for age. Pain: Denies pain. Neuro: Level of Consciousness is awake, alert, obeys commands, Oriented to person, place, time, situation. Cardiovascular: Capillary refill < 3 seconds Patient's skin is warm and dry. Respiratory: Reports shortness of breath cough that is Airway is patent Respiratory effort is even, unlabored, Respiratory pattern is regular, symmetrical, Breath sounds with wheezes bilaterally. GI: No signs and/or symptoms were reported involving the gastrointestinal system. : No signs and/or symptoms were reported regarding the genitourinary system. EENT: No signs and/or symptoms were reported regarding the EENT system. Derm: Skin is intact, Skin is dry, Skin is normal, Skin temperature is warm. Musculoskeletal: Circulation, motion, and sensation intact. Range of motion: intact in all extremities. 21:00 Reassessment: Patient appears in no apparent distress at this time. Patient and/or jd3 family updated on plan of care and expected duration. Pain level reassessed. Patient is alert, oriented x 3, equal unlabored respirations, skin warm/dry/pink. 22:07 Reassessment: Patient appears in no apparent distress at this time. Patient and/or jd3 family updated on plan of care and expected duration. Pain level reassessed. Patient is alert, oriented x 3, equal unlabored respirations, skin warm/dry/pink. Patient states feeling better. 22:31 Reassessment: Patient appears in no apparent distress at this time. Patient and/or jd3 family updated on plan of care and expected duration. Pain level reassessed. Patient is alert, oriented x 3, equal unlabored respirations, skin warm/dry/pink. Patient states feeling better. Vital Signs: 19:14 BP 146 / 92; Pulse 99; Resp 18; Temp 98.2(O); Pulse Ox 96% on R/A; Weight 68.04 kg; lp1 Height 5 ft. 4 in. (162.56 cm); Pain 0/10; 21:13 BP 123 / 58; Pulse 90; Resp 18 S; Pulse Ox 95% on R/A; jd3 22:07 BP 124 / 63; Pulse 99; Resp 17 S; Pulse Ox 97% on R/A; jd3 19:14 Body Mass Index 25.75 (68.04 kg, 162.56 cm) lp1 ED Course: 18:57 Patient arrived in ED. mr 18:57 None, None is Private Physician. mr 19:14 Triage completed. lp1 19:15 Arm band placed on left wrist. lp1 19:54 Divine Da Silva FNP-C is PHCP. kb 19:54 Matt Smith MD is Attending Physician. kb 20:03 Israel Isabel RN is Primary Nurse. jd3 20:15 Inserted saline lock: 20 gauge in left antecubital area, using aseptic technique. jd3 placed by [employer] tech. 20:20 Patient has correct armband on for positive identification. Bed in low position. Call jd3 light in reach. Side rails up X 1. 21:02 Chest Pa And Lat (2 Views) XRAY In Process Unspecified. EDMS 22:31 No provider procedures requiring assistance completed. IV discontinued, intact, jd3 bleeding controlled, No redness/swelling at site. Pressure dressing applied. Administered Medications: 20:18 Drug: Magnesium Sulfate 2 grams Route: IVPB; Infused Over: 2 hrs; Site: left jd3 antecubital; 21:37 Follow up: Response: No adverse reaction; IV Status: Completed infusion jd3 20:18 Drug: SOLU-Medrol 125 mg Route: IVP; Site: left antecubital; jd3 21:23 Follow up: Response: No adverse reaction jd3 20:18 Drug: DuoNeb (3:1) (2.5 mg - 0.5 mg) 3 ml Route: Nebulizer; jd3 21:23 Follow up: Response: No adverse reaction jd3 21:36 Drug: Albuterol 2.5 mg Route: Inhalation; jd3 21:45 Drug: Albuterol 2.5 mg Route: Inhalation; jd3 21:58 Drug: Albuterol 2.5 mg Route: Inhalation; jd3 22:05 Follow up: Response: No adverse reaction jd3 Outcome: 22:23 Discharge ordered by . hallie 22:31 Discharged to home ambulatory. jd3 22:31 Condition: good 22:31 Discharge instructions given to patient, Instructed on discharge instructions, follow up and referral plans. medication usage, Demonstrated understanding of instructions, follow-up care, medications, Prescriptions given X 3. 22:31 Patient left the ED. jd3 Signatures: Dispatcher [employer] EDMS Divine Da Silva, [employer]-Delia Marrero Laura RN RN lp1 Israel Isabel RN RN jd3
--- NOTE | 2018-08-26 22:23 | EDPHYS ---
Physician Documentation [facility] Name: Shabnam Farnsworth Age: 52 yrs Sex: Female : 1965 Arrival Date: 08/26/2018 Time: 18:57 Bed 20 Private MD: None, None ED Physician Matt Smith HPI: 08/26 21:31 This 52 yrs old Female presents to ER via Ambulatory with complaints of kb Breathing Difficulty, Cough. 21:31 The patient has shortness of breath at rest. Onset: The symptoms/episode began/occurred kb 2 day(s) ago. Duration: The symptoms are continuous, and are steadily getting worse. The patient's shortness of breath has no apparent modifying factors. Associated signs and symptoms: Pertinent positives: non-productive cough, Pertinent negatives: chest pain, productive cough, diaphoresis, dizziness, fever, hemoptysis, loss of consciousness, nausea, numbness in extremities, visual changes, vomiting. Severity of symptoms: At their worst the symptoms were moderate in the emergency department the symptoms are unchanged. The patient has experienced similar episodes in the past, several times. The patient has not recently seen a physician. 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 - Social history:: Smoking status: Patient uses tobacco products, smokes one-half pack cigarettes per day. - Ebola Screening: : No symptoms or risks identified at this time. ROS: 21:30 Constitutional: Negative for fever, chills, and weight loss, ENT: Negative for injury, kb pain, and discharge, Neck: Negative for injury, pain, and swelling, Cardiovascular: Negative for chest pain, palpitations, and edema, Abdomen/GI: Negative for abdominal pain, nausea, vomiting, diarrhea, and constipation, Back: Negative for injury and pain, MS/Extremity: Negative for injury and deformity, Skin: Negative for injury, rash, and discoloration, Neuro: Negative for headache, weakness, numbness, tingling, and seizure. 21:30 Respiratory: Positive for cough, with no reported sputum, dyspnea on exertion, shortness of breath, wheezing, Negative for hemoptysis, orthopnea, pleurisy. Exam: 21:30 Constitutional: This is a well developed, well nourished patient who is awake, alert, kb and in no acute distress. Head/Face: Normocephalic, atraumatic. ENT: Nares patent. No nasal discharge, no septal abnormalities noted. Tympanic membranes are normal and external auditory canals are clear. Oropharynx with no redness, swelling, or masses, exudates, or evidence of obstruction, uvula midline. Mucous membranes moist. Neck: Trachea midline, no thyromegaly or masses palpated, and no cervical lymphadenopathy. Supple, full range of motion without nuchal rigidity, or vertebral point tenderness. No Meningismus. Chest/axilla: Normal chest wall appearance and motion. Nontender with no deformity. No lesions are appreciated. Cardiovascular: Regular rate and rhythm with a normal S1 and S2. No gallops, murmurs, or rubs. Normal PMI, no JVD. No pulse deficits. Abdomen/GI: Soft, non-tender, with normal bowel sounds. No distension or tympany. No guarding or rebound. No evidence of tenderness throughout. Skin: Warm, dry with normal turgor. Normal color with no rashes, no lesions, and no evidence of cellulitis. MS/ Extremity: Pulses equal, no cyanosis. Neurovascular intact. Full, normal range of motion. Neuro: Awake and alert, GCS 15, oriented to person, place, time, and situation. Cranial nerves II-XII grossly intact. Motor strength 5/5 in all extremities. Sensory grossly intact. Cerebellar exam normal. Normal gait. 21:30 Respiratory: mild respiratory distress is noted, Respirations: labored breathing, Breath sounds: wheezing: expiratory that is moderate, is heard diffusely. Vital Signs: 19:14 BP 146 / 92; Pulse 99; Resp 18; Temp 98.2(O); Pulse Ox 96% on R/A; Weight 68.04 kg; lp1 Height 5 ft. 4 in. (162.56 cm); Pain 0/10; 21:13 BP 123 / 58; Pulse 90; Resp 18 S; Pulse Ox 95% on R/A; jd3 22:07 BP 124 / 63; Pulse 99; Resp 17 S; Pulse Ox 97% on R/A; jd3 19:14 Body Mass Index 25.75 (68.04 kg, 162.56 cm) lp1 MDM: 19:55 Patient medically screened. kb 21:31 Data reviewed: vital signs, nurses notes. Data interpreted: Pulse oximetry: on room air kb is 95 %. Interpretation: normal. 21:33 Counseling: I had a detailed discussion with the patient and/or guardian regarding: the kb historical points, exam findings, and any diagnostic results supporting the discharge/admit diagnosis, lab results, radiology results, the need for outpatient follow up, a family practitioner, to return to the emergency department if symptoms worsen or persist or if there are any questions or concerns that arise at home. 08/26 19:55 Order name: Chest Pa And Lat (2 Views) XRAY; Complete Time: 21:18 kb 08/26 19:58 Order name: IV Start; Complete Time: 20:18 kb Administered Medications: 20:18 Drug: Magnesium Sulfate 2 grams Route: IVPB; Infused Over: 2 hrs; Site: left d3 antecubital; 21:37 Follow up: Response: No adverse reaction; IV Status: Completed infusion jd3 20:18 Drug: SOLU-Medrol 125 mg Route: IVP; Site: left antecubital; jd3 21:23 Follow up: Response: No adverse reaction jd3 20:18 Drug: DuoNeb (3:1) (2.5 mg - 0.5 mg) 3 ml Route: Nebulizer; jd3 21:23 Follow up: Response: No adverse reaction jd3 21:36 Drug: Albuterol 2.5 mg Route: Inhalation; jd3 21:45 Drug: Albuterol 2.5 mg Route: Inhalation; jd3 21:58 Drug: Albuterol 2.5 mg Route: Inhalation; jd3 22:05 Follow up: Response: No adverse reaction jd3 Disposition: 08/27 01:28 Co-signature as Attending Physician, Matt Smith MD. rn Disposition: 08/26/18 22:23 Discharged to Home. Impression: Bronchitis, not specified as acute or chronic. - Condition is Stable. - Discharge Instructions: Acute Bronchitis, [id number]. - Prescriptions for Prednisone 20 mg Oral Tablet - take 1 tablet by ORAL route once daily for 5 days; 5 tablet. Albuterol Sulfate 2.5 mg /3 mL (0.083 %) Inhalation Solution for Nebulization - inhale 1 unit by NEBULIZATION route every 8 hours As needed; 1 box. Zithromax 500 mg Oral Tablet - take 1 tablet by ORAL route once daily for 5 days; 5 tablet. - Medication Reconciliation Form, Thank You Letter, Antibiotic Education, Prescription Opioid Use form. - Follow up: Emergency Department; When: As needed; Reason: Worsening of condition. Follow up: Private Physician; When: 2 - 3 days; Reason: Recheck today's complaints, Continuance of care, Re-evaluation by your physician. Signatures: Dispatcher [employer] EDDivine Altamirano, RANULFO-C CARPORT ERECTOR-Matt Torres MD MD rn Pena, Laura, RN RN lp1 Israel Isabel RN RN jd3 Corrections: (The following items were deleted from the chart) 08/26 21:33 21:31 The patient has not experienced similar symptoms in the past, kb 22:31 22:23 08/26/2018 22:23 Discharged to Home. Impression: Bronchitis, not specified as jd3 acute or chronic. Condition is Stable. Discharge Instructions: Acute Bronchitis, [id number]. Prescriptions for Prednisone 20 mg Oral Tablet - take 1 tablet by ORAL route once daily for 5 days; 5 tablet, Albuterol Sulfate 2.5 mg /3 mL (0.083 %) Inhalation Solution for Nebulization - inhale 1 unit by NEBULIZATION route every 8 hours As needed; 1 box, Zithromax 500 mg Oral Tablet - take 1 tablet by ORAL route once daily for 5 days; 5 tablet. and Forms are Medication Reconciliation Form, Thank You Letter, Antibiotic Education, Prescription Opioid Use. Follow up: Emergency Department; When: As needed; Reason: Worsening of condition. Follow up: Private Physician; When: 2 - 3 days; Reason: Recheck today's complaints, Continuance of care, Re-evaluation by your physician. kb
== END 2018-08-26 22:31 | disposition home or self-care (01) ==
LOC: ER 18:54
DX: J40 Bronchitis, not specified as acute or chronic (principal); F17.210 Nicotine dependence, cigarettes, uncomplicated; E11.9 Type 2 diabetes mellitus without complications; Z79.4 Long term (current) use of insulin; Z88.1 Allergy status to other antibiotic agents
CPT/HCPCS: 71046; 94640; 96365; 96375; 99284; J2930; J3475

== ENCOUNTER 2018-09-07 15:47 | Emergency (ER) | payer SELFPAY ==
[2018-09-07] MEDS ORDERED: ALBUTEROL 2.5 MG/3 ML NEB SOL ONE ×2 (16:46→18:28)
[2018-09-07] MEDS ORDERED: IPRATROPIUM BROM 0.5MG/2.5ML ONE (16:47)
[2018-09-07] MEDS ORDERED: predniSONE 20 MG TAB ONE (16:47)
--- NOTE | 2018-09-07 17:06 | RAD REPORT ---
EXAM DESCRIPTION: RAD - Chest Pa And Lat (2 Views) - 09/07/2018 4:50 pm CLINICAL HISTORY: Cough and congestion, body aches COMPARISON: Chest examination August 26 TECHNIQUE: PA and lateral views of the chest were obtained. FINDINGS: The lungs are clear of a focal lung parenchymal process. No failure or volume overload. Frances ng markings are similar to comparison. Heart size is normal and central vasculature is within bonny l limits. No pleural effusion or pneumothorax seen. No acute bony finding noted. No aortic abnorma lity. IMPRESSION: No acute cardiopulmonary process. No significant change from comparison.
--- NOTE | 2018-09-07 19:40 | ER ---
Nurse's Notes [facility] Name: Shabnam Farnsworth Age: 52 yrs Sex: Female : 1965 Arrival Date: 09/07/2018 Time: 15:50 Bed 17 Private MD: Diagnosis: Acute bronchitis;Mild persistent asthma with (acute) exacerbation Presentation: 09/07 15:54 Presenting complaint: Patient states: chest congestion, body aches, jarrod ear pain, SOB, sv generalized weakness x 1 week. Transition of care: patient was not received from another setting of care. Onset of symptoms was August 31, 2018. Care prior to arrival: None. 15:54 Method Of Arrival: Ambulatory sv 15:54 Acuity: CAMERON 3 sv 19:24 Risk Assessment: Do you want to hurt yourself or someone else? Patient reports no lp1 desire to harm self or others. Initial Sepsis Screen: Does the patient meet any 2 criteria? No. Patient's initial sepsis screen is negative. Does the patient have a suspected source of infection? No. Patient's initial sepsis screen is negative. Historical: - Allergies: 15:55 Bactrim; sv - Home Meds: 19:52 Albuterol Inhl [Active]; lisinopril 10 mg Oral tab 1 tab once daily [Active]; Novolin lp1 70/30 [place] Sub-Q [Active]; - PMHx: 15:55 Asthma; Diabetes - IDDM; sv - PSHx: 15:55 ; SBO; sv - Immunization history:: Flu vaccine is not up to date. - Social history:: Smoking status: Patient uses tobacco products, smokes one-half pack cigarettes per day. - Ebola Screening: : No symptoms or risks identified at this time. Screenin:30 Abuse screen: Denies threats or abuse. Denies injuries from another. Nutritional ss screening: No deficits noted. Tuberculosis screening: Never had TB. Fall Risk None identified. Assessment: 16:00 General: Appears comfortable, Behavior is calm, cooperative, Denies fever, feeling ill, ss fatigue, chills. Pain: Complains of pain in general body aches and headache Pain currently is 5 out of 10 on a pain scale. Neuro: Level of Consciousness is awake, alert, obeys commands, Oriented to person, place, time, situation. Cardiovascular: Capillary refill < 3 seconds is brisk in bilateral fingers. Respiratory: Airway is patent Trachea midline Respiratory effort is even, unlabored, Respiratory pattern is regular, symmetrical, Breath sounds with wheezes bilaterally. GI: No signs and/or symptoms were reported involving the gastrointestinal system. Patient currently denies abdominal pain, diarrhea, nausea, vomiting. : No signs and/or symptoms were reported regarding the genitourinary system. EENT: Nares are clear Oral mucosa is moist. Throat is clear. Derm: Skin is intact, is healthy with good turgor, Skin is pink, warm \T\ dry. normal. 17:51 Reassessment: monitoring patient's room air O2 closely for any improvements or ss worsening of condition. Pt reports feeling better after neb tx. 19:21 Reassessment: Patient at 91% on RA after nebulizer Patient states feeling better. lp1 Patient states symptoms have improved. Respiratory: Breath sounds are coarse bilaterally. Vital Signs: 15:56 BP 123 / 71; Pulse 120; Resp 24; Temp 97.9(O); Pulse Ox 92% on R/A; Weight 67.13 kg; sv Height 5 ft. 4 in. (162.56 cm); Pain 5/10; 16:30 BP 115 / 76; Pulse 109; Resp 20; Pulse Ox 91% on R/A; Pain 5/10; ss 17:50 Pulse 93; Resp 18; Pulse Ox 93% on R/A; Pain 4/10; ss 19:23 BP 110 / 51; Pulse 86; Resp 18; Pulse Ox 91% on R/A; lp1 19:52 Pulse 83; Resp 18; Pulse Ox 94% on R/A; lp1 15:56 Body Mass Index 25.40 (67.13 kg, 162.56 cm) sv ED Course: 15:50 Patient arrived in ED. sb2 15:55 Triage completed. sv 15:59 Waldo Butterfield PA is PHCP. jr8 15:59 Shahram Campa MD is Attending Physician. jr8 16:30 Patient has correct armband on for positive identification. Bed in low position. Call ss light in reach. 16:42 Lisseth Boone, YINA is Primary Nurse. ss 16:46 XRAY Chest Pa And Lat (2 Views) In Process Unspecified. EDMS 16:46 X-ray completed. Patient tolerated procedure well. sg4 19:24 Arm band placed on. lp1 19:52 No provider procedures requiring assistance completed. Patient did not have IV access lp1 during this emergency room visit. Administered Medications: 16:42 Drug: predniSONE 20 mg Route: PO; ss 18:26 Follow up: Response: No adverse reaction 16:43 Drug: Albuterol - atroVENT (3:1) (2.5 mg - 0.5 mg) 3 ml Route: Nebulizer; ss 18:26 Follow up: Response: No adverse reaction; No change in condition ss 18:28 Drug: Albuterol 2.5 mg {Note: all 3 given now per CHRIS Carreno.} Route: Inhalation;ss 18:28 Drug: Albuterol 2.5 mg Route: Inhalation; ss 18:28 Drug: Albuterol 2.5 mg Route: Inhalation; ss Outcome: 19:39 Discharge ordered by . jr8 19:53 Discharged to home ambulatory. lp1 19:53 Condition: good 19:53 Discharge instructions given to patient, Instructed on discharge instructions, follow up and referral plans. medication usage, Demonstrated understanding of instructions, follow-up care, medications, Prescriptions given X 4. 19:53 Patient left the ED. lp1 Signatures: Dispatcher [employer] EDMS Radha Mercado RN RN sv Smirch, Shelby, RN RN ss Pena, Laura, RN RN lp1 Waldo Butterfield PA PA jr8 Billeau, Sheri sb2 Garcia, Susana sg4 Corrections: (The following items were deleted from the chart) 15:57 15:54 Presenting complaint: Patient states: chest congestion, body aches, SOB, sv generalized weakness x 1 week sv 15:57 15:56 BP 123 / 71; Pulse 120bpm; Resp 24bpm; Pulse Ox 92% RA; 67.13 kg; Height 5 ft. 4 sv in.; BMI: 25.4; Pain 5/10; sv
--- NOTE | 2018-09-07 19:40 | EDPHYS ---
Physician Documentation [facility] Name: Shabnam Farnsworth Age: 52 yrs Sex: Female : 1965 Arrival Date: 09/07/2018 Time: 15:50 Bed 17 Private MD: ED Physician Shahram Campa HPI: 09/07 17:01 This 52 yrs old Female presents to ER via Ambulatory with complaints of jr8 cough, shortness of breath. 17:01 Onset: The symptoms/episode began/occurred gradually, 4 week(s) ago, and became worse jr8 and became persistent. Associated signs and symptoms: Pertinent positives: cough, earache, headache, sore throat. The patient has not experienced similar symptoms in the past. The patient has not recently seen a physician. 17:22 Stated that she had been getting over a cold that she had for the past few weeks. jr8 Started with worsening of symptoms again and now having earache, sore throat, and body aches for the past week . Historical: - Allergies: 15:55 Bactrim; sv - Home Meds: 19:52 Albuterol Inhl [Active]; lisinopril 10 mg Oral tab 1 tab once daily [Active]; Novolin lp1 70/30 [place] Sub-Q [Active]; - PMHx: 15:55 Asthma; Diabetes - IDDM; sv - PSHx: 15:55 ; SBO; sv - Immunization history:: Flu vaccine is not up to date. - Social history:: Smoking status: Patient uses tobacco products, smokes one-half pack cigarettes per day. - Ebola Screening: : No symptoms or risks identified at this time. ROS: 17:22 Eyes: Negative for injury, pain, redness, and discharge, Neck: Negative for injury, jr8 pain, and swelling, Cardiovascular: Negative for chest pain, palpitations, and edema, Abdomen/GI: Negative for abdominal pain, nausea, vomiting, diarrhea, and constipation, Back: Negative for injury and pain, MS/Extremity: Negative for injury and deformity, Skin: Negative for injury, rash, and discoloration, Neuro: Negative for headache, weakness, numbness, tingling, and seizure. 17:22 Constitutional: Positive for body aches, fatigue, malaise. 17:22 ENT: Positive for ear pain, rhinorrhea, sinus congestion, sore throat. 17:22 Respiratory: Positive for cough, shortness of breath, wheezing. Exam: 17:22 Head/Face: Normocephalic, atraumatic. Eyes: Pupils equal round and reactive to light, jr8 extra-ocular motions intact. Lids and lashes normal. Conjunctiva and sclera are non-icteric and not injected. Cornea within normal limits. Periorbital areas with no swelling, redness, or edema. ENT: Nares patent. No nasal discharge, no septal abnormalities noted. Tympanic membranes are normal and external auditory canals are clear. Oropharynx with no redness, swelling, or masses, exudates, or evidence of obstruction, uvula midline. Mucous membranes moist. Neck: Trachea midline, no thyromegaly or masses palpated, and no cervical lymphadenopathy. Supple, full range of motion without nuchal rigidity, or vertebral point tenderness. No Meningismus. Cardiovascular: Regular rate and rhythm with a normal S1 and S2. No gallops, murmurs, or rubs. Normal PMI, no JVD. No pulse deficits. Abdomen/GI: Soft, non-tender, with normal bowel sounds. No distension or tympany. No guarding or rebound. No evidence of tenderness throughout. Back: No spinal tenderness. No costovertebral tenderness. Full range of motion. Skin: Warm, dry with normal turgor. Normal color with no rashes, no lesions, and no evidence of cellulitis. MS/ Extremity: Pulses equal, no cyanosis. Neurovascular intact. Full, normal range of motion. Neuro: Awake and alert, GCS 15, oriented to person, place, time, and situation. Cranial nerves II-XII grossly intact. Motor strength 5/5 in all extremities. Sensory grossly intact. Cerebellar exam normal. Normal gait. 17:22 Respiratory: the patient does not display signs of respiratory distress, Respirations: normal, symetrical, no use of accessory muscles, no grunting, no evidence of nasal flaring, no prolonged exhalations, no pursed lip breathing, no retractions, no shallow respirations, no splinting, no tachypnea, Breath sounds: wheezing: expiratory that is moderate, is heard diffusely. Vital Signs: 15:56 BP 123 / 71; Pulse 120; Resp 24; Temp 97.9(O); Pulse Ox 92% on R/A; Weight 67.13 kg; sv Height 5 ft. 4 in. (162.56 cm); Pain 5/10; 16:30 BP 115 / 76; Pulse 109; Resp 20; Pulse Ox 91% on R/A; Pain 5/10; ss 17:50 Pulse 93; Resp 18; Pulse Ox 93% on R/A; Pain 4/10; ss 19:23 BP 110 / 51; Pulse 86; Resp 18; Pulse Ox 91% on R/A; lp1 19:52 Pulse 83; Resp 18; Pulse Ox 94% on R/A; lp1 15:56 Body Mass Index 25.40 (67.13 kg, 162.56 cm) sv MDM: 15:59 Patient medically screened. jr8 17:31 Data reviewed: vital signs, nurses notes, radiologic studies, plain films. Data jr8 interpreted: Pulse oximetry: on room air is 94 %. Interpretation: acceptable. Counseling: I had a detailed discussion with the patient and/or guardian regarding: the historical points, exam findings, and any diagnostic results supporting the discharge/admit diagnosis, radiology results. ED course: Patient feeling better after breathing treatment and steroids. Will wait a while and repeat treatment since saturation is around 93-94%. 19:33 ED course: Patient able to ambulate with no shortness of breath. Still maintaining jr8 saturation around 93% off of oxygen but no longer feels short of breath. Resting comfortably in room. No labored breathing or Tachypnea. No pneumonia on imaging. Patient wants to try outpatient therapy for now and would come back if worse. Patient has nebulizer machine at home and will refill her ampules and give new inhaler as well. Will put on 5 day course of steroids as well. Knows to adjust her insulin . 09/07 16:29 Order name: XRAY Chest Pa And Lat (2 Views); Complete Time: 17:22 jr8 Administered Medications: 16:42 Drug: predniSONE 20 mg Route: PO; ss 18:26 Follow up: Response: No adverse reaction ss 16:43 Drug: Albuterol - atroVENT (3:1) (2.5 mg - 0.5 mg) 3 ml Route: Nebulizer; ss 18:26 Follow up: Response: No adverse reaction; No change in condition ss 18:28 Drug: Albuterol 2.5 mg {Note: all 3 given now per CHRIS Carreno.} Route: Inhalation; 18:28 Drug: Albuterol 2.5 mg Route: Inhalation; 18:28 Drug: Albuterol 2.5 mg Route: Inhalation; ss Disposition: 17:23 Co-signature as Attending Physician, Shahram Campa MD. ma2 Disposition: 09/07/18 19:39 Discharged to Home. Impression: Acute bronchitis, Mild persistent asthma with (acute) exacerbation. - Condition is Stable. - Discharge Instructions: Acute Bronchitis, Adult, Asthma, Adult. - Prescriptions for Prednisone 20 mg Oral Tablet - take 1 tablet by ORAL route once daily for 5 days; 5 tablet. Albuterol Sulfate 2.5 mg /3 mL (0.083 %) Inhalation Solution for Nebulization - inhale 1 unit by NEBULIZATION route every 8 hours As needed; 1 box. Zithromax Z- [place] 250 mg Oral Tablet - take 1 tablet by ORAL route as directed for 5 days Day 1 - take two (2) tablets one time. Day 2, 3, 4 , 5 take one (1) tablet once daily.; 6 tablet. Albuterol Sulfate 90 mcg/actuation - inhale 1-2 puff by INHALATION route every 4-6 hours; 1 Inhaler. - Work release form, Medication Reconciliation Form, Thank You Letter, Antibiotic Education, Prescription Opioid Use form. - Follow up: Private Physician; When: 2 - 3 days; Reason: Recheck today's complaints, Continuance of care, Re-evaluation by your physician. - Problem is new. - Symptoms have improved. Signatures: Dispatcher [employer] SURYAAL Radha Mercado RN RN Lisseth Boone RN RN Michelle David RN RN lp1 Waldo Butterfield PA PA jr8 Shahram Campa MD MD ma2 Corrections: (The following items were deleted from the chart) 19:53 19:39 09/07/2018 19:39 Discharged to Home. Impression: Acute bronchitis; Mild lp1 persistent asthma with (acute) exacerbation. Condition is Stable. Forms are Medication Reconciliation Form, Thank You Letter, Antibiotic Education, Prescription Opioid Use. Follow up: Private Physician; When: 2 - 3 days; Reason: Recheck today's complaints, Continuance of care, Re-evaluation by your physician. Problem is new. Symptoms have improved. jr8
== END 2018-09-07 19:53 | disposition home or self-care (01) ==
LOC: ER 15:47
DX: J20.9 Acute bronchitis, unspecified (principal); J45.901 Unspecified asthma with (acute) exacerbation; E11.9 Type 2 diabetes mellitus without complications; F17.210 Nicotine dependence, cigarettes, uncomplicated; Z79.4 Long term (current) use of insulin; Z79.899 Other long term (current) drug therapy
CPT/HCPCS: 71046; 94640; 99284; J7512

== ENCOUNTER 2018-09-08 14:59 | Observation (INO) | payer SELFPAY ==
[2018-09-08] MEDS ORDERED: LEVALBUTEROL 1.25 MG/3 ML NEB ONE (15:41)
[2018-09-08 15:51] LABS: Absolute Lymphocytes (CBC) 1.4 K/uL (0.7-4.9); Absolute Monocytes 0.5 K/uL (0.1-1.3); Absolute Neutrophil 5.1 K/uL (1.8-8.0); Basophils % 0.4 % (0-1.3); Eosinophils % 5.3 % (0-4.4); Hematocrit 47.6 % (36.0-45.0); Lymphocytes % 19.5 % (15.3-44.8); MPV 9.2 fL (7.6-11.3); Monocytes % 6.3 % (3.3-12.3); RBC Red Blood Cell Count 4.93 M/uL (3.86-4.86)
--- NOTE | 2018-09-08 15:53 | ER ---
Nurse's Notes [facility] Name: Shabnam Farnsworth Age: 52 yrs Sex: Female : 1965 Arrival Date: 09/08/2018 Time: 15:03 Bed 28 Private MD: Diagnosis: Moderate persistent asthma with (acute) exacerbation;Chronic obstructive pulmonary disease with (acute) exacerbation Presentation: 09/08 15:05 Presenting complaint: Patient states: i was here yesterday because my oxygen was low tw2 and they wanted to keep me but i told them i was feeling better and now i am not, i feel short of breath and am wheezing. Transition of care: patient was not received from another setting of care. Onset of symptoms was September 08, 2018. Risk Assessment: Do you want to hurt yourself or someone else? Patient reports no desire to harm self or others. Care prior to arrival: None. 15:05 Method Of Arrival: Ambulatory tw2 15:05 Acuity: CAMERON 3 tw2 15:15 Initial Sepsis Screen: Does the patient meet any 2 criteria? No. Patient's initial kr2 sepsis screen is negative. Does the patient have a suspected source of infection? No. Patient's initial sepsis screen is negative. Triage Assessment: 15:15 General: Appears in no apparent distress. comfortable, well groomed, well developed, kr2 well nourished, Behavior is calm, cooperative, appropriate for age. Historical: - Allergies: 15:07 Bactrim; tw2 15:07 sulfamethoxazole-trimethoprim; tw2 - Home Meds: 15:07 Novolin 70/30 [place] Sub-Q [Active]; lisinopril 10 mg Oral tab 1 tab once daily tw2 [Active]; Albuterol Inhl [Active]; - PMHx: 15:07 Asthma; Diabetes - IDDM; tw2 - PSHx: 15:07 ; SBO; tw2 - Immunization history:: Adult Immunizations. - Social history:: Smoking status: Patient uses tobacco products, smokes one pack cigarettes per day. - Ebola Screening: : Patient denies travel to an Ebola-affected area in the 21 days before illness onset. Screenin:15 Abuse screen: Denies threats or abuse. Denies injuries from another. Nutritional kr2 screening: No deficits noted. Tuberculosis screening: No symptoms or risk factors identified. Fall Risk None identified. Assessment: 15:15 General: Appears in no apparent distress. comfortable, well groomed, well developed, kr2 well nourished, Behavior is calm, cooperative, appropriate for age. Pain: Denies pain. Neuro: Level of Consciousness is awake, alert, obeys commands, Oriented to person, place, time, situation, Appropriate for age. Cardiovascular: Patient's skin is warm and dry. Rhythm is regular. Respiratory: Reports cough that is Chest congestion Airway is patent Respiratory effort is even, unlabored, Respiratory pattern is regular, symmetrical, Breath sounds are clear bilaterally. GI: Abdomen is flat, non-distended, Patient currently denies diarrhea, nausea, vomiting. : Denies burning with urination. EENT: Nares are clear bilaterally Oral mucosa is moist. Derm: Skin is intact, is healthy with good turgor, Skin is pink, warm \T\ dry. Musculoskeletal: Circulation, motion, and sensation intact. 16:32 Reassessment: Patient states that she gave herself 25 units of 70/30 insulin a few kr2 minutes ago, Jenise notified, orders to hold the ordered 10 units of regular insulin, allow fluid bolus to infuse and then recheck blood glucose. 17:30 Reassessment: Patient appears in no apparent distress at this time. Patient and/or kr2 family updated on plan of care and expected duration. Pain level reassessed. Patient is alert, oriented x 3, equal unlabored respirations, skin warm/dry/pink. Patient denies pain at this time. Patient states feeling better. Vital Signs: 15:06 BP 124 / 77; Pulse 125; Resp 20; Temp 97.9(TE); Pulse Ox 91% on R/A; tw2 16:40 BP 124 / 61; Pulse 92; Resp 20; Pulse Ox 97% on R/A; kr2 ED Course: 15:03 Patient arrived in ED. sb2 15:06 Triage completed. tw2 15:07 Arm band placed on. tw2 15:13 Albin Bowers PA is PHCP. jmm 15:13 Matt Smith MD is Attending Physician. jmm 15:15 Patient has correct armband on for positive identification. Placed in gown. Bed in low kr2 position. Call light in reach. Side rails up X 1. color television console monitor on. Pulse ox on. NIBP on. Door closed. Warm blanket given. Head of bed elevated. 15:21 PHCP role handed off by Albin Bowers PA jr8 15:21 Waldo Butterfield PA is PHCP. jr8 15:27 Yen Saunders, YINA is Primary Nurse. kr2 15:40 Inserted saline lock: 20 gauge in left antecubital area, using aseptic technique. Blood kr2 collected. 15:44 Basic Metabolic Panel Sent. kr2 15:44 CBC with Diff Sent. kr2 15:52 Silvano Cordero DO is Hospitalizing Provider. jr8 17:40 No provider procedures requiring assistance completed. Patient admitted, IV remains in kr2 place. Administered Medications: 15:35 Drug: Xopenex (3) 1.25 mg Route: Inhalation; kr2 16:15 Follow up: Response: No adverse reaction; Marked relief of symptoms kr2 16:01 Drug: SOLU-Medrol 125 mg Route: IVP; Site: left antecubital; kr2 17:00 Follow up: Response: No adverse reaction kr2 16:07 Drug: NS 0.9% 1000 ml Route: IV; Rate: 1000 ml; Site: left antecubital; kr2 17:00 Follow up: Response: No adverse reaction; IV Status: Completed infusion kr2 16:32 CANCELLED (Inappropriate at this time): Insulin Regular Human 10 units IVP once jr8 17:10 Drug: Insulin Regular Human 5 units {Co-Signature: ed1 (Adriane Lim LVN).} Route: IVP; kr2 Site: left antecubital; 17:41 Follow up: Response: Patient transferred to room 206, accepting nurse Elmira notified kr2 17:13 Drug: NS 0.9% 1000 ml Route: IV; Rate: 1 bolus; Site: left antecubital; kr2 17:40 Follow up: Response: No adverse reaction; IV Status: Infusion continued upon admission kr2 Point of Care Testing: Blood Glucose: 17:07 Blood Glucose: 366 mg/dL; kr2 17:07 Provider notified, see MAR kr2 Ranges: Outcome: 15:52 Decision to Hospitalize by Provider. jr8 17:40 Instructed on the need for admit, Demonstrated understanding of instructions. kr2 17:46 Patient left the ED. kr2 12/31 00:57 Admitted to Tele accompanied by nurse, via wheelchair, room 206, with oxygen, with kr2 chart, Report called to Elmira Condition: stable Signatures: Albin Bowers PA PA jmm Roszak, Josh, PA PA jr8 Freya Mohan, RN RN tw2 Yen Saunders RN RN kr2 Susie Mccarthy sb2 Adriane Lim [employer] ed1 Corrections: (The following items were deleted from the chart) 00:59 00:57 Instructed on the need for admit, Demonstrated understanding of instructions, kr2 kr2 01:02 09/08 17:07 Blood Glucose: Blood Glucose Pppaxyb=592 mg/dL. kr2 kr2
--- NOTE | 2018-09-08 15:53 | EDPHYS ---
Physician Documentation [facility] Name: Shabnam Farnsworth Age: 52 yrs Sex: Female : 1965 Arrival Date: 09/08/2018 Time: 15:03 Bed 28 Private MD: ED Physician Matt Smith HPI: 09/08 15:46 This 52 yrs old Female presents to ER via Ambulatory with complaints of Chest jr8 Congestion. 15:46 The patient presents to the emergency department with wheezing, Current therapy: jr8 albuterol inhaler, albuterol nebs, oral steroids, the patient was reported to have audible wheezing, chest congestion, trouble breathing. Onset: The symptoms/episode began/occurred gradually, 2 week(s) ago, and became worse and became persistent. Modifying factors: The symptoms are alleviated by nothing, the symptoms are aggravated by nothing. Associated signs and symptoms: Pertinent negatives: chest pain, fever, palpitations. Severity of symptoms: At their worst the symptoms were moderate. The patient has experienced similar episodes in the past, a few times. The patient has been recently seen at the [facility] Emergency Department, yesterday, for similar complaints X-rays were performed, was given a prescription for antibiotics, the patient was told to return for a recheck, given breathing treatments and steroids. Historical: - Allergies: 15:07 Bactrim; tw2 15:07 sulfamethoxazole-trimethoprim; tw2 - Home Meds: 15:07 Novolin 70/30 [place] Sub-Q [Active]; lisinopril 10 mg Oral tab 1 tab once daily tw2 [Active]; Albuterol Inhl [Active]; - PMHx: 15:07 Asthma; Diabetes - IDDM; tw2 - PSHx: 15:07 ; SBO; tw2 - Immunization history:: Adult Immunizations. - Social history:: Smoking status: Patient uses tobacco products, smokes one pack cigarettes per day. - Ebola Screening: : Patient denies travel to an Ebola-affected area in the 21 days before illness onset. ROS: 15:46 Eyes: Negative for injury, pain, redness, and discharge, ENT: Negative for injury, jr8 pain, and discharge, Neck: Negative for injury, pain, and swelling, Cardiovascular: Negative for chest pain, palpitations, and edema, Abdomen/GI: Negative for abdominal pain, nausea, vomiting, diarrhea, and constipation, Back: Negative for injury and pain, MS/Extremity: Negative for injury and deformity, Skin: Negative for injury, rash, and discoloration, Neuro: Negative for headache, weakness, numbness, tingling, and seizure. 15:46 Respiratory: Positive for cough, dyspnea on exertion, shortness of breath, wheezing. Exam: 15:46 Eyes: Pupils equal round and reactive to light, extra-ocular motions intact. Lids and jr8 lashes normal. Conjunctiva and sclera are non-icteric and not injected. Cornea within normal limits. Periorbital areas with no swelling, redness, or edema. ENT: Nares patent. No nasal discharge, no septal abnormalities noted. Tympanic membranes are normal and external auditory canals are clear. Oropharynx with no redness, swelling, or masses, exudates, or evidence of obstruction, uvula midline. Mucous membranes moist. Neck: Trachea midline, no thyromegaly or masses palpated, and no cervical lymphadenopathy. Supple, full range of motion without nuchal rigidity, or vertebral point tenderness. No Meningismus. Abdomen/GI: Soft, non-tender, with normal bowel sounds. No distension or tympany. No guarding or rebound. No evidence of tenderness throughout. Back: No spinal tenderness. No costovertebral tenderness. Full range of motion. Skin: Warm, dry with normal turgor. Normal color with no rashes, no lesions, and no evidence of cellulitis. MS/ Extremity: Pulses equal, no cyanosis. Neurovascular intact. Full, normal range of motion. Neuro: Awake and alert, GCS 15, oriented to person, place, time, and situation. Cranial nerves II-XII grossly intact. Motor strength 5/5 in all extremities. Sensory grossly intact. Cerebellar exam normal. Normal gait. 15:46 Cardiovascular: Rate: tachycardic, Rhythm: regular, Pulses: Pulses are 2+ in right radial artery and left radial artery. Heart sounds: normal, normal S1and S2, no S3 or S4, no murmur, no rub, no gallop, Edema: is not appreciated. 15:46 Respiratory: mild respiratory distress is noted, Respirations: tachypnea, Breath sounds: wheezing: expiratory that is moderate, is heard diffusely. Vital Signs: 15:06 BP 124 / 77; Pulse 125; Resp 20; Temp 97.9(TE); Pulse Ox 91% on R/A; tw2 16:40 BP 124 / 61; Pulse 92; Resp 20; Pulse Ox 97% on R/A; kr2 MDM: 15:21 Patient medically screened. jr8 15:46 Data reviewed: vital signs, nurses notes, lab test result(s), EKG. Data interpreted: jr8 Pulse oximetry: on room air is 91 %. Interpretation: hypoxia. Counseling: I had a detailed discussion with the patient and/or guardian regarding: the historical points, exam findings, and any diagnostic results supporting the discharge/admit diagnosis, lab results, the need for further work-up and treatment in the hospital. Physician consultation: Silvano Cordero DO was called at 15:51, was contacted at 15:51, regarding admission, to the telemetry unit. consult, patient's condition, and will see patient in ED. 09/08 15:31 Order name: CBC with Diff; Complete Time: 15:55 8 09/08 15:31 Order name: Basic Metabolic Panel; Complete Time: 16:32 jr8 09/08 16:08 Order name: Flu; Complete Time: 16:35 kr2 09/08 15:31 Order name: IV; Complete Time: 15:44 jr8 09/08 15:38 Order name: EKG Strip; Complete Time: 16:25 jr8 09/08 15:38 Order name: EKG; Complete Time: 15:38 jr8 Administered Medications: 15:35 Drug: Xopenex (3) 1.25 mg Route: Inhalation; kr2 16:15 Follow up: Response: No adverse reaction; Marked relief of symptoms kr2 16:01 Drug: SOLU-Medrol 125 mg Route: IVP; Site: left antecubital; kr2 17:00 Follow up: Response: No adverse reaction kr2 16:07 Drug: NS 0.9% 1000 ml Route: IV; Rate: 1000 ml; Site: left antecubital; kr2 17:00 Follow up: Response: No adverse reaction; IV Status: Completed infusion kr2 16:32 CANCELLED (Inappropriate at this time): Insulin Regular Human 10 units IVP once jr8 17:10 Drug: Insulin Regular Human 5 units {Co-Signature: ed1 (Adriane Lim BAR HOST).} Route: IVP; kr2 Site: left antecubital; 17:41 Follow up: Response: Patient transferred to room 206, accepting nurse Elmira notified kr2 17:13 Drug: NS 0.9% 1000 ml Route: IV; Rate: 1 bolus; Site: left antecubital; kr2 17:40 Follow up: Response: No adverse reaction; IV Status: Infusion continued upon admission kr2 Point of Care Testing: Blood Glucose: 17:07 Blood Glucose: 366 mg/dL; kr2 17:07 Provider notified, see MAR kr2 Ranges: Critical Glucose Levels:Adult <50 mg/dl or >400 mg/dl <40 mg/dl or >180 mg/dl Disposition: 18:42 Co-signature as Attending Physician, Matt Smith MD. rn Disposition: 09/08/18 15:52 Hospitalization ordered by Silvano Cordero for Observation. Preliminary diagnosis are Moderate persistent asthma with (acute) exacerbation, Chronic obstructive pulmonary disease with (acute) exacerbation. - Bed requested for Telemetry/MedSurg (observation). - Status is Observation. kr2 - Condition is Stable. - Problem is new. - Symptoms have improved. UTI on Admission? No Signatures: Dispatcher [employer] EDMS Albin Bowers PA PA Matt Oscar MD MD rn Roszak, Josh, PA PA jr8 Freya Mohan RN RN tw2 Edita Crane RN RN df Yen Saunders RN RN kr2 Adriane Lim [facility] ed1 Corrections: (The following items were deleted from the chart) 16:24 15:52 Hospitalization Ordered by Silvano Cordero DO for Observation. Preliminary df diagnosis is Moderate persistent asthma with (acute) exacerbation; Chronic obstructive pulmonary disease with (acute) exacerbation. Bed requested for Telemetry/MedSurg (observation). Status is Observation. Condition is Stable. Problem is new. Symptoms have improved. UTI on Admission? No. jr8 16:32 16:29 Insulin Regular Human 10 units IVP once ordered. jr8 jr8 17:46 16:24 09/08/2018 15:52 Hospitalization Ordered by Silvano Cordero DO for Observation. kr2 Preliminary diagnosis is Moderate persistent asthma with (acute) exacerbation; Chronic obstructive pulmonary disease with (acute) exacerbation. Bed requested for Telemetry/MedSurg (observation). Status is Observation. Condition is Stable. Problem is new. Symptoms have improved. UTI on Admission? No. df
[2018-09-08] MEDS ORDERED: METHYLPREDNISOLONE 125 MG INJ ONE (16:04)
[2018-09-08] MEDS ORDERED: NA CHLORIDE 0.9% 1,000 ML ONE ×2 (16:13→17:20)
[2018-09-08 16:26] LABS: Potassium 3.9 mmol/L (3.5-5.1)
--- NOTE | 2018-09-08 16:43 | P.HP ---
Certification for Inpatient Patient admitted to: Observation With expected LOS: <2 Midnights Patient will require the following post-hospital care: None Practitioner: I am a practitioner with admitting privileges, knowledge of patient current condition, hospital course, and medical plan of care. Services: Services provided to patient in accordance with Admission requirements found in Title 42 Section 412.3 of the Code of Federal Regulations Patient History Date of Service: 09/08/18 Primary Care Provider: None Reason for admission: Shortness of breath History of Present Illness: 52-year-old female presented to emergency room with shortness of breath. Patient reports increasing shortness of breath over the last several days. Patient was actually seen yesterday and treated for COPD exacerbation. She was to be admitted for observation yesterday that she decided to go home. She has yet to by her medication. She continue have increasing shortness of breath. Patient with history of COPD. She only uses albuterol as needed. She does smoke but is trying to quit. In the ER patient was evaluated. O2 saturations were around 90-91%. She was slightly tachypneic and tachycardic in the emergency room. Patient was given nebulized treatments with slight improvement. Patient was admitted for observation. When I saw the patient ER, shortness of breath had improved. Patient with history of COPD, tobacco abuse and allergic rhinitis. 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 Patient also with history of type 1 diabetes. Blood sugar was elevated in the emergency room. Allergies sulfamethoxazole [From Bactrim] Allergy (Mild, Verified 02/16/18 19:53) Itching trimethoprim [From Bactrim] Allergy (Mild, Verified 02/16/18 19:53) Itching Home medications list reviewed: Yes Home Medications: Insulin 70/30 NPH/Reg Human [Novolin 70/30*] 20 unit SQ BEDTIME 02/16/18 Insulin 70/30 NPH/Reg Human [Novolin 70/30*] 25 units SQ DAILY 02/16/18 Lisinopril 10 mg PO BEDTIME 02/16/18 Albuterol Inhaler [Ventolin Inhaler*] 2 puff IH TID PRN #1 [email or web address] 02/17/18 Albuterol Neb [Proventil 0.083% Neb Soln] 2.5 mg NEB TID PRN #90 amp 02/17/18 Fluticasone [Flonase 50MCG Nasal [place]*] 1 sprays [place] BID #1 btl 02/17/18 Levofloxacin [Levaquin] 500 mg PO DAILY #7 tablet 02/17/18 Pantoprazole [Protonix Tab*] 40 mg PO DAILYAC #30 tab 02/17/18 Prednisone [Deltasone] 20 mg PO SEECOM #15 tablet 02/17/18 Benzonatate [Tessalon Perle*] 200 mg PO TID PRN #14 cap 02/20/18 Fluticasone/Salmeterol [Airduo Respiclick 113-14 Mcg] 1 each IH Q12HR #1 [email or web address] 02/20/18 - Past Medical/Surgical History Diabetic: Yes -: Diabetes mellitus type 1 -: COPD -: Former tobacco use -: History small-bowel obstruction -: Laparotomy -: C-sections x2 Psychosocial/ Personal History: The patient is single. She has 2 children. 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 - Family History Mother -: Hypertension, Other (see notes) Notes: Hypothyroidism - Social History Smoking Status: Heavy Tobacco smoker (>10 cigarettes/day) Counseled patient to stop smoking for: less than 10 minutes Smoking therapy provided: Yes Patient receptive to therapy: Yes Alcohol use: Yes CD- Drugs: No Caffeine use: Yes Place of Residence: Home Review of Systems General: As per HPI Eyes: Unremarkable ENT: Unremarkable Respiratory: Shortness of Breath, As per HPI Cardiovascular: Unremarkable Gastrointestinal: Unremarkable Genitourinary: Unremarkable Musculoskeletal: Unremarkable Integumentary: Unremarkable Neurological: Unremarkable Lymphatics: Unremarkable Physical Examination - Physical Exam General: Alert, In no apparent distress, Oriented x3, Cooperative HEENT: Atraumatic, Normocephalic, PERRLA, Mucous membr. moist/pink Neck: Supple Respiratory: Expiratory wheezes, Inspiratory wheezes Cardiovascular: Normal pulses, Regular rate/rhythm Gastrointestinal: Normal bowel sounds, Soft and benign, Non-distended, No tenderness, No masses, No rebound, No guarding Musculoskeletal: No erythema, No tenderness, No warmth Integumentary: No tenderness/swelling, No erythema, No warmth, No cyanosis Neurological: Normal speech, Normal strength at 5/5 x4 extr, Normal tone, Normal affect - Studies Laboratory Data (last 24 hrs) 09/08/18 15:40: Sodium 140, Potassium 3.9, BUN 15, Creatinine 0.87, Glucose 452 H* 09/08/18 15:40: WBC 7.4, Hgb 16.1 H, Hct 47.6 H, Plt Count 244 Assessment and Plan - Plan Impression: COPD exacerbation Diabetes type 1, uncontrolled Chronic allergic rhinitis Tobacco abuse Plan: COPD exacerbation: Patient will be admitted for observation. Will start prednisone and continue COPD medication. Will provide medication for cough, congestion. Will maintain sats above 90%. Wean off oxygen. Anticipate discharge within the next 24 hr. Will assess for influenza and strep. Will recheck chest x-ray. Diabetes type 1, uncontrolled: Blood sugar elevated in the emergency room. Patient given insulin 70/30. Patient takes insulin 70/30 at home. Will restart medication. Will monitor closely. Will provide sliding scale. Chronic allergic rhinitis: Will provide medication Tobacco abuse: Will provide nicotine patch. Tobacco cessation addressed in detail. Discharge Plan: Home Plan to discharge in: 24 Hours - Advance Directives Does patient have a Living Will: No Does patient have a Durable POA for Healthcare: No - Code Status/Comfort Care Code Status Assessed: Yes (Patient full code.) Time Spent Managing Pts Care (In Minutes): 55
[2018-09-08] MEDS ORDERED: ALBUTEROL 2.5 MG/3 ML NEB SOL NEB PRN (17:14)
[2018-09-08] MEDS ORDERED: IPRATROPIUM BROM 0.5MG/2.5ML NEB PRN (17:14)
[2018-09-08] MEDS ORDERED: D50W 25 GM/50 ML SYRINGE IV PRN (17:14)
[2018-09-08] MEDS ORDERED: BENZONATATE 100 MG CAP PO PRN (17:14)
[2018-09-08] MEDS ORDERED: ONDANSETRON 4 MG/2 ML VIAL IV PRN (17:14)
[2018-09-08] MEDS ORDERED: ACETAMINOPHEN 500 MG TAB PO PRN (17:14)
[2018-09-08] MEDS ORDERED: GLUCAGON 1 MG/VIAL IM PRN (17:14)
[2018-09-08] MEDS ORDERED: INSULIN -REGULAR HUMAN 50 UNIT/0.5 ML ML ONE (17:20)
[2018-09-08] MEDS ORDERED: INFLUENZA VACCINE (for 3y+) 0.5 ML DOSE IMVAC ONE (18:00)
[2018-09-08] MEDS: NICOTINE 21 MG/PAT TD SCH (18:08)
[2018-09-08] MEDS: ENOXAPARIN 40 MG/0.4 ML SQ SCH (18:08)
[2018-09-08] MEDS ORDERED: FLUTICASONE 50MCG NASAL SPRAY NAS SCH (21:00)
[2018-09-08] MEDS: predniSONE 20 MG TAB PO SCH (21:08)
[2018-09-08] MEDS: INSULIN -REGULAR HUMAN 50 UNIT/0.5 ML ML SQ SCH (21:08)
[2018-09-08] MEDS: DULERA 100/5 (MOMETASONE/FORMOTEROL) INHALER IH SCH (21:08)
[2018-09-08] MEDS: GUAIFENESIN 600 MG SA TAB PO SCH (21:08)
[2018-09-08 21:22] LABS: Urine Appearance CLEAR; Urine Bilirubin NEGATIVE (NEG); Urine Blood 2+ (NEG); Urine Color YELLOW; Urine Glucose 3+ (NEG); Urine Protein NEGATIVE (NEG); Urine Specific Gravity >=1.030 (1.005-1.030); Urine Urobilinogen 0.2 mg/dL (0.2-1.0); Urine pH 5.5 (5.0-7.0)
[2018-09-08 21:32] LABS: Urine Microscopic Reflex ORDER UMIC
[2018-09-08 21:51] LABS: Urine Bacteria <20 /HPF (<20); Urine Culture Reflex Order REFLEXED; Urine Yeast FEW (NONE SEEN)
[2018-09-09 06:12] LABS: Absolute Monocytes 0.3 K/uL (0.1-1.3); Basophils % 0.3 % (0-1.3); Hematocrit 42.6 % (36.0-45.0); Lymphocytes % 13.4 % (15.3-44.8); MPV 9.6 fL (7.6-11.3); Monocytes % 3.9 % (3.3-12.3); RBC Red Blood Cell Count 4.45 M/uL (3.86-4.86)
[2018-09-09 06:31] LABS: BUN Blood Urea Nitrogen 11 mg/dL (7-18); Bicarbonate 27 mmol/L (21-32); Glucose Level 208 mg/dL (74-106); Magnesium 2.1 mg/dL (1.8-2.4); Potassium 4.5 mmol/L (3.5-5.1); Sodium Level 139 mmol/L (136-145)
[2018-09-09] MEDS ORDERED: INSULIN 70/30 100 UNITS/ML SQ SCH (07:30)
--- NOTE | 2018-09-09 08:38 | P.DS ---
Admission Date: 09/08/18 Discharge Date: 09/09/18 Primary Care Provider: None Disposition: ROUTINE DISCHARGE Discharge Condition: GOOD Reason for Admission: Shortness of breath Consultations: none Procedures: Medical Problem List: COPD exacerbation Diabetes type 1, uncontrolled by A1c 10.2 Chronic allergic rhinitis Tobacco abuse Brief History of Present Illness: 52-year-old female presented to emergency room with shortness of breath. Patient reports increasing shortness of breath over the last several days. Patient was actually seen yesterday and treated for COPD exacerbation. She was to be admitted for observation yesterday that she decided to go home. She has yet to by her medication. She continue have increasing shortness of breath. Patient with history of COPD. She only uses albuterol as needed. She does smoke but is trying to quit. In the ER patient was evaluated. O2 saturations were around 90-91%. She was slightly tachypneic and tachycardic in the emergency room. Patient was given nebulized treatments with slight improvement. Patient was admitted for observation. When I saw the patient ER, shortness of breath had improved. Patient with history of COPD, tobacco abuse and allergic rhinitis. 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 Patient also with history of type 1 diabetes. Blood sugar was elevated in the emergency room. Hospital Course: Patient presented with shortness of breath secondary to COPD exacerbation. Patient was admitted for treatment. Patient did well in her stay. Strep test negative. Influenza test negative. At discharge she did not require any oxygen. At discharge she will continue with prednisone 20 mg 1 pill twice daily for 5 days then 1 pill once daily for 5 days. Patient will be started on maintenance therapy. She will continue with Airduo 1 puff twice daily and Pro air 2 puffs 3 times a day as needed for shortness of breath. Recommendation is for the patient to establish care with a PCP or with pulmonology to continue her care. Patient may take [id number] Mucinex to help with congestion. Patient has diabetes type 1. A1c 10.2. Patient takes insulin. At discharge she will continue with insulin 70/30 30 units subcu twice daily. She is to monitor and adjust her medication. Recommendation is to maintain blood sugars less than 140 fasting and less than 200 after meals. Further adjustment can be done by her PCP. Patient to establish care with a PCP to continue her care. Patient with chronic allergic rhinitis. Patient will continue with Zyrtec 10 mg daily and Flonase 1 spray per nostril twice daily. 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 Patient with tobacco abuse. Tobacco cessation addressed in detail. Patient may use [id number] nicotine patch to help her quit. Vital Signs/Physical Exam: Temp Pulse Resp BP Pulse Ox 95.5 F L 85 18 118/65 93 09/09/18 04:00 09/09/18 04:00 09/09/18 04:00 09/09/18 04:00 09/09/18 04:00 General: Alert, In no apparent distress, Oriented x3, Cooperative HEENT: Atraumatic Neck: Supple Respiratory: Clear to auscultation bilaterally, Normal air movement Cardiovascular: Normal pulses, Regular rate/rhythm Gastrointestinal: Normal bowel sounds, Soft and benign, Non-distended, No tenderness, No masses, No rebound, No guarding Musculoskeletal: No erythema, No tenderness, No warmth Integumentary: No tenderness/swelling, No erythema, No warmth, No cyanosis Neurological: Normal speech, Normal strength at 5/5 x4 extr, Normal tone, Normal affect Laboratory Data at Discharge: WBC 7.3 K/uL (4.3-10.9) 09/09/18 05:18 Hgb 14.6 g/dL (12.0-15.0) 09/09/18 05:18 Hct 42.6 % (36.0-45.0) 09/09/18 05:18 Plt Count 230 K/uL (152-406) 09/09/18 05:18 Sodium 139 mmol/L (136-145) 09/09/18 05:18 Potassium 4.5 mmol/L (3.5-5.1) 09/09/18 05:18 BUN 11 mg/dL (7-18) 09/09/18 05:18 Creatinine 0.45 mg/dL (0.55-1.3) L 09/09/18 05:18 Glucose 208 mg/dL (74-106) H 09/09/18 05:18 Magnesium 2.1 mg/dL (1.8-2.4) 09/09/18 05:18 Home Medications: Albuterol Neb [Proventil 0.083% Neb Soln] 3 ml IH TID PRN #1 amp 09/09/18 Albuterol Sulfate [Proair Hfa] 2 puff IH TID PRN #1 hfa.aer.ad 09/09/18 Cetirizine HCl [Zyrtec] 10 mg PO DAILY #30 tablet 09/09/18 Fluticasone [Flonase 50MCG Nasal [place]*] 1 sprays [place] BID #1 btl 09/09/18 Fluticasone/Salmeterol [Airduo Respiclick 113-14 Mcg] 1 each IH BID #1 aer.pow.ba 09/09/18 Insulin 70/30 NPH/Reg Human [Novolin 70/30*] 30 unit SQ BID #1 vial 09/09/18 predniSONE [Prednisone*] 20 mg PO SEECOM #15 tab 09/09/18 New Medications: Albuterol Neb [Proventil 0.083% Neb Soln] 3 ml IH TID PRN #1 amp PRN Reason: Shortness Of Breath Albuterol Sulfate [Proair Hfa] 2 puff IH TID PRN #1 hfa.aer.ad PRN Reason: Shortness Of Breath Cetirizine HCl [Zyrtec] 10 mg PO DAILY #30 tablet Fluticasone [Flonase 50MCG Nasal [place]*] 1 sprays [place] BID #1 btl Fluticasone/Salmeterol [Airduo Respiclick 113-14 Mcg] 1 each IH BID #1 aer.pow.ba Insulin 70/30 NPH/Reg Human [Novolin 70/30*] 30 unit SQ BID #1 vial predniSONE [Prednisone*] 20 mg PO SEECOM #15 tab Patient Discharge Instructions: 1. Patient will need to establish care with a PCP to follow up this hospitalization and continue her care. 2. Patient presented with shortness of breath secondary to COPD exacerbation. Patient was admitted for treatment. Patient did well in her stay. Strep test negative. Influenza test negative. At discharge she did not require any oxygen. At discharge she will continue with prednisone 20 mg 1 pill twice daily for 5 days then 1 pill once daily for 5 days. Patient will be started on maintenance therapy. She will continue with Airduo 1 puff twice daily and Pro air 2 puffs 3 times a day as needed for shortness of breath. Recommendation is for the patient to establish care with a PCP or with pulmonology to continue her care. Patient may take [id number] Mucinex to help with congestion. 3. Patient has diabetes type 1. A1c 10.2. Patient takes insulin. At discharge she will continue with insulin 70/30 30 units subcu twice daily. She is to monitor and adjust her medication. Recommendation is to maintain blood sugars less than 140 fasting and less than 200 after meals. Further adjustment can be done by her PCP. Patient to establish care with a PCP to continue her care. 4. Patient with chronic allergic rhinitis. Patient will continue with Zyrtec 10 mg daily and Flonase 1 spray per nostril twice daily. 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 5. Patient with tobacco abuse. Tobacco cessation addressed in detail. Patient may use [id number] nicotine patch to help her quit. Diet: ADA Activity: Ad ian Time spent managing pt's care (in minutes): 55
[2018-09-09] MEDS: GUAIFENESIN 600 MG SA TAB PO SCH (08:58)
[2018-09-09] MEDS: predniSONE 20 MG TAB PO SCH (08:58)
[2018-09-09] MEDS: DULERA 100/5 (MOMETASONE/FORMOTEROL) INHALER IH SCH (08:58)
[2018-09-09] MEDS: ENOXAPARIN 40 MG/0.4 ML SQ SCH (08:58)
[2018-09-09] MEDS: NICOTINE 21 MG/PAT TD SCH (08:59)
[2018-09-09] MEDS: INSULIN -REGULAR HUMAN 50 UNIT/0.5 ML ML SQ SCH ×2 (08:59→11:30)
[2018-09-09] MEDS ORDERED: CETIRIZINE HCL 5 MG TABLET PO SCH (09:00)
--- NOTE | 2018-09-09 10:39 | RAD REPORT ---
EXAM DESCRIPTION: RAD - Chest Pa And Lat (2 Views) - 09/09/2018 6:46 am CLINICAL HISTORY: follow up COPD Chest pain. COMPARISON: Chest Pa And Lat (2 Views) dated 09/07/2018; Chest Pa And Lat (2 Views) dated 08/26/2018 ; Chest Single View dated 08/12/2018; Chest Pa And Lat (2 Views) dated 06/21/2018 FINDINGS: The lungs are clear. The heart is normal in size. No displaced fractures. IMPRESSION: No acute or concerning finding suspected.
--- NOTE | 2018-09-09 11:59 | EKG ---
Test Date: 2018-09-08 Test Time: 16:13:07 Deputy K 9: LOGAN MEASUREMENT RESULTS: Intervals: Rate: 90 CT: 124 QRSD: 82 QT: 348 QTc: 425 [place]: P: 80 CT: 124 QRS: 85 T: 79 INTERPRETIVE STATEMENTS: Normal sinus rhythm Normal ECG Compared to ECG 02/16/2018 13:00:04 No significant changes Electronically Signed On 09-09-18 11:58:29 TINNING MACHINE SET UP OPERATOR by Salbador Hodge
== END 2018-09-09 12:36 | disposition home or self-care (01) ==
LOC: ER 14:59 → ERHOLD 15:59 → 2ND 17:04
PROVIDERS: ADMIT Family Medicine; ATTEND Family Medicine
DX: J44.1 Chronic obstructive pulmonary disease with (acute) exacerbation (principal); E10.65 Type 1 diabetes mellitus with hyperglycemia; J30.9 Allergic rhinitis, unspecified; F17.210 Nicotine dependence, cigarettes, uncomplicated; Z88.2 Allergy status to sulfonamides
CPT/HCPCS: 36415; 71046; 80048; 81003; 81015; 82962; 83036; 83735; 85025; 87070; 87081; 87086; 87088; 87804; 93005; 94640; 96361; 96374; 96375; 99285; G0378; J1650; J2930; J7030; J7512; J7606

== ENCOUNTER 2018-10-20 14:36 | Emergency (ER) | payer SELFPAY ==
--- NOTE | 2018-10-20 17:00 | ER ---
Nurse's Notes [facility] Name: Shabnam Farnsworth Age: 52 yrs Sex: Female : 1965 Arrival Date: 10/20/2018 Time: 14:39 Bed 13 Private MD: None, None Diagnosis: Bronchitis, not specified as acute or chronic Presentation: 10/20 14:55 Presenting complaint: Chest congestion, mild SOB, and headache x 2 days. Transition of hb care: patient was not received from another setting of care. Onset of symptoms was October 18, 2018. Risk Assessment: Do you want to hurt yourself or someone else? Patient reports no desire to harm self or others. Care prior to arrival: None. 14:55 Method Of Arrival: Ambulatory hb 14:55 Acuity: CAMERON 4 hb 17:40 Initial Sepsis Screen: Does the patient meet any 2 criteria? No. Patient's initial rb1 sepsis screen is negative. Does the patient have a suspected source of infection? No. Patient's initial sepsis screen is negative. 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 - Social history:: Smoking status: Patient uses tobacco products, smokes one pack cigarettes per day. - Ebola Screening: : No symptoms or risks identified at this time. Screenin:40 Abuse screen: Denies threats or abuse. Nutritional screening: No deficits noted. rb1 Tuberculosis screening: No symptoms or risk factors identified. Fall Risk None identified. Assessment: 17:40 General: Appears in no apparent distress. comfortable, Behavior is calm, cooperative, rb1 Denies fever. Pain: Complains of pain in headache and bodyaches Pain currently is 3 out of 10 on a pain scale. Neuro: Level of Consciousness is awake, alert, obeys commands, Oriented to person, place, time, situation. Cardiovascular: Capillary refill < 3 seconds is brisk in bilateral fingers. Respiratory: Airway is patent Respiratory effort is even, unlabored, Respiratory pattern is regular, symmetrical. Respiratory: Reports cough that is productive, yellow sputum Respiratory: Reports chest congestion. GI: No signs and/or symptoms were reported involving the gastrointestinal system. : No signs and/or symptoms were reported regarding the genitourinary system. Derm: Skin is dry, Skin is normal, Skin temperature is warm. 18:40 Reassessment: Patient appears in no apparent distress at this time. No changes from rb1 previously documented assessment. 18:48 Reassessment: Discharge pending due to breathing treatment being administered at this rb1 time. Vital Signs: 14:56 BP 117 / 077; Pulse 87; Resp 18; Temp 98.4; Pulse Ox 96% on R/A; Pain 6/10; hb 18:40 BP 111 / 67; Pulse 88; Resp 19; Pulse Ox 100% on R/A; rb1 ED Course: 14:39 Patient arrived in ED. sb2 14:39 None, None is Private Physician. sb2 14:56 Triage completed. hb 14:58 Arm band placed on. hb 16:57 X-ray completed. Portable x-ray completed in exam room. Patient tolerated procedure sg4 well. 16:58 Patient's name was called from ER lobby. No response. Unable to locate patient. Will hb disposition as left without being seen by a provider. 17:05 Chest Pa And Lat (2 Views) XRAY In Process Unspecified. EDMS 17:39 Debbie Zamora, RN is Primary Nurse. rb1 17:40 Patient has correct armband on for positive identification. Bed in low position. Call rb1 light in reach. Side rails up X 1. Pulse ox on. NIBP on. 17:41 Romelia Hawkins FNP-C is PHCP. snw 17:41 Matt Smith MD is Attending Physician. snw 19:00 No provider procedures requiring assistance completed. Patient did not have IV access rb1 during this emergency room visit. Administered Medications: 18:48 Drug: predniSONE 20 mg Route: PO; rb1 18:48 Drug: Pepcid 20 mg Route: PO; rb1 18:48 Drug: Albuterol - atroVENT (3:1) (2.5 mg - 0.5 mg) 3 ml Route: Nebulizer; rb1 Outcome: 16:59 Patient left the ED. hb 18:23 Discharge ordered by . snw 19:20 Discharged to home ambulatory. rb1 19:20 Condition: stable 19:20 Discharge instructions given to patient, Instructed on discharge instructions, follow up and referral plans. medication usage, Demonstrated understanding of instructions, follow-up care, medications, Prescriptions given X 4. 19:21 Patient left the ED. jb4 Signatures: Dispatcher [employer] EDSC Romelia Hawkins, SPORTS MARKETING SPECIALIST-C SPORTS MARKETING SPECIALIST-Csnw Debbie Zamora, RN RN rb1 Mercedes Castro, YINA RN Peng Lucio RN RN jb4 Susie Mccarthy Susana sg4
--- NOTE | 2018-10-20 17:14 | RAD REPORT ---
EXAM DESCRIPTION: RAD - Chest Pa And Lat (2 Views) - 10/20/2018 5:05 pm CLINICAL HISTORY: Chest congestion, shortness of breath COMPARISON: August 2018 TECHNIQUE: PA and lateral views of the chest were obtained. FINDINGS: The lungs are clear. Lung markings are similar to comparison. Heart size is normal and ce ntral vasculature is within normal limits. No pleural effusion or pneumothorax seen. No acute bony finding noted. No aortic abnormality. IMPRESSION: No acute cardiopulmonary process. No significant interval change.
--- NOTE | 2018-10-20 18:23 | EDPHYS ---
Physician Documentation [facility] Name: Shabnam Farnsworth Age: 52 yrs Sex: Female : 1965 Arrival Date: 10/20/2018 Time: 14:39 Bed 13 Private MD: None, None ED Physician Matt Smith HPI: 10/20 22:18 This 52 yrs old Female presents to ER via Ambulatory with complaints of snw Congestion. 22:18 The patient or guardian reports airway noise, cough, described as moderate. Onset: The snw symptoms/episode began/occurred suddenly, 2 day(s) ago, and became persistent. Modifying factors: the symptoms are aggravated by weather change. Associated signs and symptoms: Pertinent positives: congestion. Severity of symptoms: At their worst the symptoms were moderate. The patient has experienced similar episodes in the past. The patient has not recently seen a physician. 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 - Social history:: Smoking status: Patient uses tobacco products, smokes one pack cigarettes per day. - Ebola Screening: : No symptoms or risks identified at this time. ROS: 22:17 Constitutional: Negative for fever, chills, and weight loss, Eyes: Negative for injury, snw pain, redness, and discharge, ENT: Negative for injury, pain, and discharge, Neck: Negative for injury, pain, and swelling, Cardiovascular: Negative for chest pain, palpitations, and edema, Abdomen/GI: Negative for abdominal pain, nausea, vomiting, diarrhea, and constipation, Back: Negative for injury and pain, : Negative for injury, bleeding, discharge, and swelling, MS/Extremity: Negative for injury and deformity, Skin: Negative for injury, rash, and discoloration, Neuro: Negative for headache, weakness, numbness, tingling, and seizure. 22:17 Respiratory: Positive for cough, wheezing. Exam: 18:21 Constitutional: This is a well developed, well nourished patient who is awake, alert, snw and in no acute distress. Head/Face: Normocephalic, atraumatic. Eyes: Pupils equal round and reactive to light, extra-ocular motions intact. Lids and lashes normal. Conjunctiva and sclera are non-icteric and not injected. Cornea within normal limits. Periorbital areas with no swelling, redness, or edema. Neck: Trachea midline, no thyromegaly or masses palpated, and no cervical lymphadenopathy. Supple, full range of motion without nuchal rigidity, or vertebral point tenderness. No Meningismus. Chest/axilla: Normal chest wall appearance and motion. Nontender with no deformity. No lesions are appreciated. Cardiovascular: Regular rate and rhythm with a normal S1 and S2. No gallops, murmurs, or rubs. Normal PMI, no JVD. No pulse deficits. Abdomen/GI: Soft, non-tender, with normal bowel sounds. No distension or tympany. No guarding or rebound. No evidence of tenderness throughout. Back: No spinal tenderness. No costovertebral tenderness. Full range of motion. Skin: Warm, dry with normal turgor. Normal color with no rashes, no lesions, and no evidence of cellulitis. MS/ Extremity: Pulses equal, no cyanosis. Neurovascular intact. Full, normal range of motion. Neuro: Awake and alert, GCS 15, oriented to person, place, time, and situation. Cranial nerves II-XII grossly intact. Motor strength 5/5 in all extremities. Sensory grossly intact. Cerebellar exam normal. Normal gait. 18:21 ENT: External ear(s): are unremarkable, Ear canal(s): are normal, TM's: are normal, Nose: is normal, Mouth: is normal, Posterior pharynx: erythema, that is moderate, Voice: is normal. 18:21 Respiratory: the patient does not display signs of respiratory distress, Respirations: normal, Breath sounds: wheezing: that is moderate, is heard diffusely, bronchitic cough. Vital Signs: 14:56 BP 117 / 077; Pulse 87; Resp 18; Temp 98.4; Pulse Ox 96% on R/A; Pain 6/10; hb 18:40 BP 111 / 67; Pulse 88; Resp 19; Pulse Ox 100% on R/A; rb1 MDM: 18:06 Patient medically screened. snw 22:17 Data reviewed: vital signs, nurses notes. Data interpreted: Pulse oximetry: on room air snw is 100 %. Interpretation: normal. Counseling: I had a detailed discussion with the patient and/or guardian regarding: the historical points, exam findings, and any diagnostic results supporting the discharge/admit diagnosis, lab results, radiology results, the need for outpatient follow up, to return to the emergency department if symptoms worsen or persist or if there are any questions or concerns that arise at home. Special discussion: Based on the history and exam findings, there is no indication for further emergent testing or inpatient evaluation. I discussed with the patient/guardian the need to see the primary care provider for further evaluation of the symptoms. 10/20 15:26 Order name: Flu; Complete Time: 18:16 snw 10/20 16:17 Order name: Chest Pa And Lat (2 Views) XRAY; Complete Time: 17:30 snw Administered Medications: 18:48 Drug: predniSONE 20 mg Route: PO; rb1 18:48 Drug: Pepcid 20 mg Route: PO; rb1 18:48 Drug: Albuterol - atroVENT (3:1) (2.5 mg - 0.5 mg) 3 ml Route: Nebulizer; rb1 Disposition: 10/20/18 18:23 Discharged to Home. Impression: Bronchitis, not specified as acute or chronic. - Condition is Stable. - Discharge Instructions: Acute Bronchitis, Adult, How to Use an Inhaler, Cool Mist Vaporizer. - Prescriptions for Tessalon Perles 100 mg Oral Capsule - take 1 capsule by ORAL route every 8 hours As needed; 15 capsule. Albuterol Sulfate 2.5 mg /3 mL (0.083 %) Inhalation Solution for Nebulization - inhale 1 unit by NEBULIZATION route every 8 hours As needed; 1 box. Prednisone 20 mg Oral Tablet - take 2 tablet by ORAL route once daily for 5 days; 10 tablet. Albuterol Sulfate 90 mcg/actuation - inhale 1-2 puff by INHALATION route every 4-6 hours; 1 Inhaler. - Work release form, Medication Reconciliation Form, Thank You Letter, Antibiotic Education, Prescription Opioid Use form. - Follow up: Private Physician; When: 2 - 3 days; Reason: Recheck today's complaints, Continuance of care, Re-evaluation by your physician. Follow up: Emergency Department; When: As needed; Reason: Worsening of condition. Addendum: 10/22/2018 07:07 Co-signature as Attending Physician, Matt Smith MD. r n Signatures: Dispatcher [employer] EDMS Shruthi, Romelia, WRIST LINER-C WRIST LINER-Csnw Matt Smith MD MD rn Barber, Rebecca, RN RN [facility] Mercedes Castro RN RN Peng Matute RN RN jb4 Corrections: (The following items were deleted from the chart) 10/20 17:41 16:59 10/20/2018 16:59 Patient left the facility Before Triage. Reason stated they are snw leaving due to wait time. 19:21 18:23 10/20/2018 18:23 Discharged to Home. Impression: Bronchitis, not specified as jb4 acute or chronic. Condition is Stable. Forms are Medication Reconciliation Form, Thank You Letter, Antibiotic Education, Prescription Opioid Use. Follow up: Private Physician; When: 2 - 3 days; Reason: Recheck today's complaints, Continuance of care, Re-evaluation by your physician. Follow up: Emergency Department; When: As needed; Reason: Worsening of condition. snw
[2018-10-20] MEDS ORDERED: FAMOTIDINE 20 MG TAB ONE (18:59)
[2018-10-20] MEDS ORDERED: predniSONE 20 MG TAB ONE (18:59)
[2018-10-20] MEDS ORDERED: IPRATROPIUM BROM 0.5MG/2.5ML ONE (18:59)
[2018-10-20] MEDS ORDERED: ALBUTEROL 2.5 MG/3 ML NEB SOL ONE (18:59)
== END 2018-10-20 19:21 | disposition home or self-care (01) ==
LOC: ER 14:36
DX: J40 Bronchitis, not specified as acute or chronic (principal); E11.9 Type 2 diabetes mellitus without complications; F17.210 Nicotine dependence, cigarettes, uncomplicated; Z79.4 Long term (current) use of insulin; Z79.899 Other long term (current) drug therapy
CPT/HCPCS: 71046; 87804; 94640; 99284; J7512